=== PATIENT | female | born 1945 | race Caucasian/White ===

== ENCOUNTER 2018-11-11 00:25 | Outpatient (CLI) | payer MEDICARE, OTHER, SELFPAY ==
--- NOTE | 2018-11-11 15:10 | DI.MAMMO_ITS ---
SYMPTOMS/DIAGNOSIS: SCREENING, Z12.31 MAMMOGRAMS: Mammograms were interpreted according to the usual protocol including computer analysis with CAD system, tomosynthesis and C view imaging. The breasts are heterogeneously dense. No dominant mass or clumped microcalcification is identified in either breast. Current examination is compared with previous examinations including October 2016 and there has been no gross interval change in appearance in comparison with the previous studies. CONCLUSION: No specific evidence of malignancy at this time. Routine screening examinations are suggested at yearly intervals in this age group according to the ACS/ACR guidelines. Category 1, breast density category C. MQSA ASSESSMENT OF FINDINGS: Negative. Category 1. Patient will receive a letter notifying them of these results. Bi-RADS category C. The breasts are heterogeneously dense, which may obscure small masses.
--- NOTE | 2018-11-11 15:10 | DI.RAD_ITS ---
SYMPTOMS/DIAGNOSIS: OSTEOPOROSIS, ON FOSAMAX WEEKLY SINCE 08/2011, M81.0 DEXA SCAN: DEXA scan was performed according to the usual protocol. Findings for a lumbar spine scan are a T score of -0.8. Previous examination of June 2013 showed lumbar T score of -0.8. Left hip T score is -2.4 with left femoral neck T score of -2.9. Previous examination of June 2013 showed left hip T score of -2.3. Right forearm scanning shows a T score of -3.3. This is unchanged from June 2013 where the T score was -3.3. CONCLUSION: Findings consistent with osteoporosis according to the WHO criteria. The lateral vertebral scanogram shows no evidence of a vertebral compression fracture.
== END 2018-11-11 00:45 ==
PROVIDERS: PCP Family Medicine; Visit Provider Family Medicine
DX: M81.0 Age-related osteoporosis without current pathological fracture (principal); Z12.31 Encounter for screening mammogram for malignant neoplasm of breast; Z79.899 Other long term (current) drug therapy
CPT/HCPCS: 77063; 77067; 77080

== ENCOUNTER 2018-11-20 09:04 | Outpatient (CLI) | payer MEDICARE, OTHER, SELFPAY ==
[2018-11-20 11:00] LABS: Anion Gap 7.9 mmol/L (3-11); BUN 24 mg/dL (7-18); CO2 30.1 mmol/L (21.0-32.0); Calcium 8.9 mg/dL (8.5-10.1); Chloride 106 mmol/L (98-107); Glucose 85 mg/dL (70-100); Potassium 4.2 mmol/L (3.5-5.1); Sodium 144 mmol/L (136-145); TSH (W/Ref FT4) 0.76 uIU/mL (0.358-3.74); Vitamin B12 312 pg/mL (193-986)
[2018-11-22 09:47] LABS: Parathyroid Hormone,Intact 46 pg/ml (19-88)
[2018-11-22 13:01] LABS: Vitamin D 25 Total 28.5 ng/ml (30-100)
== END 2018-11-20 09:24 ==
PROVIDERS: PCP Family Medicine; Visit Provider Family Medicine
DX: R63.4 Abnormal weight loss (principal); M19.90 Unspecified osteoarthritis, unspecified site; M81.0 Age-related osteoporosis without current pathological fracture
CPT/HCPCS: 36415; 80048; 82306; 82607; 83970; 84443

== ENCOUNTER 2019-02-03 16:16 | Outpatient (REF) | payer MEDICARE, OTHER, SELFPAY ==
[2019-02-03 18:53] LABS: Vitamin D 25 Total 76.1 ng/ml (30-100)
[2019-02-03 18:58] LABS: Vitamin B12 615 pg/mL (193-986)
== END 2019-02-03 16:36 ==
LOC: NCHCN 16:16
PROVIDERS: PCP Family Medicine; Visit Provider Family Medicine
DX: E55.9 Vitamin D deficiency, unspecified (principal); E53.8 Deficiency of other specified B group vitamins
CPT/HCPCS: 82306; 82607

== ENCOUNTER 2020-08-09 20:00 | Outpatient (REF) | payer OTHER, SELFPAY | END 2020-08-09 20:01 | disposition home or self-care (01) | LOC: LBN 20:00 | PROVIDERS: PCP Family Medicine; Visit Provider Obstetrics & Gynecology Gynecology | DX: N76.4 Abscess of vulva (principal) | CPT/HCPCS: 87077; 87070; 87186; 87205 ==

== ENCOUNTER 2020-12-25 01:40 | Outpatient (CLI) | payer OTHER, SELFPAY ==
--- NOTE | 2020-12-25 | DI.DEXA_ITS ---
Exam(s) XR DEXA BONE DENSITY W/WO VALERIY EXAM: XR DEXA BONE DENSITY W/WO VALERIY CLINICAL HISTORY: OSTEOPOROSIS, M81.0 TECHNIQUE: Routine DEXA evaluation of the lumbar spine, hip, or forearm. COMPARISON: Prior DEXA scan October 2018 FINDINGS: Performed on a [email or web address] unit. Lateral image: No compression fracture evident. Lumbar Spine total T-score: -0.9 . prior October 2018 reading was -0.8 Hip total T-score:-2.6 . prior October 2018 reading was -2 4 Independent reading at the femoral neck today is a T-score of -3.0 Forearm total T-score: -3.7 IMPRESSION: Bone mineral density measures in the osteoporosis range. Fracture risk is high. Note: Any spine fracture indicates 5x risk for subsequent spine fracture and 2x risk for subsequent h ip fracture. World Health Organization criteria for BMD interpretation classify patients: Normal...... T- Score at or above -1.0 Osteopenic... T- Score between -1.0 and -2.5 Osteoporosis... T-Score at or below -2.5
--- NOTE | 2020-12-25 | DI.MAMMO_ITS ---
Exam(s) MAMMO SCREENING EXAM: MAMMO SCREENING CLINICAL HISTORY: SCREENING, Z12.31. TECHNIQUE: Bilateral full field digital CC and MLO mammographic images were obtained with 3D tomosyn thesis and utilizing computer aided detection (CAD). COMPARISON: Prior mammograms dating back to 2012, the most recent being October 2018. FINDINGS: The fibroglandular tissue pattern is again noted be moderately dense, this decreasing the sensitivity of the mammogram for finding hidden underlying lesions. There are no CAD designations. There are no new obvious spiculated masses nor malignant appearing microcalcification groups. There is no significant architectural distortion nor skin thickening-retraction. IMPRESSION: Dense fibroglandular tissue. No obvious radiographic evidence malignancy nor significant change comp ared to prior studies listed above BI-RADS Category 1 - Negative Breast Density - Category C - Heterogeneously dense Breast density Category C or D implies that the patient has dense breast tissue. Dense breast tissue can make it harder to find cancer on a mammogram. Dense breast tissue is also associated with an incr eased risk of breast cancer. This information about the result of the mammogram report was provided to the patient to raise their awareness. Use this report when you speak with the patient about their risks for breast cancer, which includes their family history. At that time, you may recommend additional screening tests (Ultrasoun d or MRI) as these tests may add significant information. A negative radiographic report should not delay biopsy if a dominant or clinically suspicious mass is present. Up to ten percent of cancers are not identified on mammography. A negative report may reinforce clinical impression. Adenosis and dense breasts may obscure an underlying neoplasm. False positive reports average 6 to 10%. Patient will receive a letter notifying them of these results.
== END 2020-12-25 02:00 ==
PROVIDERS: PCP Family Medicine; Visit Provider Family Medicine
DX: Z12.31 Encounter for screening mammogram for malignant neoplasm of breast (principal); M81.0 Age-related osteoporosis without current pathological fracture
CPT/HCPCS: 77063; 77067; 77080

== ENCOUNTER 2021-01-21 13:23 | Outpatient (REF) | payer OTHER, SELFPAY ==
[2021-01-21 14:25] LABS: Vitamin D 25 Total 55.8 ng/mL (30-100)
== END 2021-01-21 13:24 | disposition home or self-care (01) ==
LOC: NCHCN 13:23
PROVIDERS: PCP Family Medicine; Visit Provider Family Medicine
DX: M81.0 Age-related osteoporosis without current pathological fracture (principal)
CPT/HCPCS: 82306

== ENCOUNTER 2021-01-23 15:39 | Outpatient (REF) | payer OTHER, SELFPAY ==
[2021-01-28 15:25] LABS: Creatinine, U 78 mg/dL; NTX 384 nmol/L; NTX-Telopedptide, U 56 nmol/mmol
== END 2021-01-23 15:40 | disposition home or self-care (01) ==
LOC: NCHCN 15:39
PROVIDERS: PCP Family Medicine; Visit Provider Family Medicine
DX: M81.0 Age-related osteoporosis without current pathological fracture (principal)
CPT/HCPCS: 82523

== ENCOUNTER 2021-02-28 02:59 | Outpatient (RCR) | payer OTHER, SELFPAY ==
[2021-02-28] MEDS: Normal Saline Flush 10 ML SYR IVP (09:04)
== END 2021-03-28 23:59 | disposition home or self-care (01) ==
LOC: INF 02:59
PROVIDERS: PCP Family Medicine; Visit Provider Nurse Practitioner Family
DX: M81.8 Other osteoporosis without current pathological fracture (principal)
CPT/HCPCS: 96365; J3489

== ENCOUNTER 2022-03-10 03:10 | Outpatient (RCR) | payer MEDICARE, SELFPAY ==
[2022-03-10] MEDS: ZOLEDRONIC ACID/MANNITOL/WATER 5 MG/100 ML BTL 300 MG IVPB (09:21)
[2022-03-10] MEDS: Normal Saline Flush 10 ML SYR IVP (09:21)
== END 2022-03-28 23:59 | disposition home or self-care (01) ==
LOC: INF 03:10
PROVIDERS: PCP Family Medicine; Visit Provider Nurse Practitioner Acute Care
DX: M81.0 Age-related osteoporosis without current pathological fracture (principal)
CPT/HCPCS: 96365; J3489

== ENCOUNTER → 2023-02-03 02:36 | Outpatient (CLI) | payer MEDICARE, SELFPAY ==
--- NOTE | 2023-02-03 | DI.DEXA_ITS ---
Exam(s) XR DEXA BONE DENSITY W/WO VALERIY EXAM: XR DEXA BONE DENSITY W/WO VALERIY CLINICAL HISTORY: OSTEOPOROSIS, M81.0 TECHNIQUE: COMPARISON: CR XR DEXA BONE DENSITY W/WO VALERIY from 12/25/2020 FINDINGS: Lateral Spine Image: Unremarkable. No compression deformities identified. Left hip: Total T-Score: -2.5. This compares to -2.6 on the prior examination. Total Z-Score: -0.6 T- and Z-scores: Findings are consistent with osteoporosis. Lumbar Spine: Total T-Score: -0.7. This compares to -0.9 on the prior examination. Total Z-Score: 1.8 T- and Z-scores: No evidence of osteoporosis. IMPRESSION: Osteoporosis in the left hip.
--- NOTE | 2023-02-03 | DI.MAMMO_ITS ---
Exam(s) MAMMO SCREENING EXAM: MAMMO SCREENING CLINICAL HISTORY: SCREENING, Z12.31 TECHNIQUE: Bilateral full field digital CC and MLO mammographic images were obtained with 3D tomosyn thesis and utilizing computer aided detection (CAD). COMPARISON: Available for comparison. FINDINGS: Masses/Architectural Distortion: None seen. Microcalcifications: No suspicious pleomorphic-type are seen. Skin Thickening/Nipple Retraction: None. IMPRESSION: 1. No significant interval change with no specific features of malignancy noted. 2. Unless there is more urgent need, screening mammography is recommended, as per [place] [employer] guidelines. BI-RADS Category 1 - Negative Breast Density - Category C - Heterogeneously dense Breast density category C or D implies that the patient has dense breast tissue. Dense breast tissue is very common and is not abnormal but dense breast tissue can make it harder to find cancer on a ma mmogram. Also, dense breast tissue may increase their breast cancer risk. This information about the result of the mammogram report was provided to the patient to raise their awareness. Use this report when you speak with the patient about their risks for breast cancer, which includes their family hist ory. At that time, you may recommend for more screening tests (Ultrasound or MRI) as they might be us eful based on their risk. A negative radiographic report should not delay biopsy if a dominant or clinically suspicious mass is present. Up to ten percent of cancers are not identified on mammography. A negative report may reinforce clinical impression. Adenosis and dense breasts may obscure an underlying neoplasm. False positive reports average 6 to 10%. Patient will receive a letter notifying them of these results.
== END ==
PROVIDERS: PCP Family Medicine; Visit Provider Family Medicine
DX: M81.0 Age-related osteoporosis without current pathological fracture (principal); Z12.2 Encounter for screening for malignant neoplasm of respiratory organs; Z12.31 Encounter for screening mammogram for malignant neoplasm of breast
CPT/HCPCS: 77063; 77067; 77080

== ENCOUNTER → 2023-02-23 10:12 | Outpatient (CLI) | payer MEDICARE, SELFPAY ==
--- NOTE | 2023-02-23 10:42 | DI.RAD_ITS ---
Exam(s) XR FOOT LT COMPLETE EXAM: XR FOOT LT COMPLETE CLINICAL HISTORY: Kathia M20.42. TECHNIQUE: 2D digital imaging was performed of the left foot. Three images were obtained. AP, obli que and lateral views were obtained. COMPARISON: No exams were available for comparison FINDINGS: BONES: No acute fracture is present. No bony destructive lesion is seen. There is an enthesophyte at the posterior calcaneus. JOINTS: No dislocation present. There are mild degenerative changes of the foot particularly the inte rphalangeal joints. SOFT TISSUE: Normal. IMPRESSION: Mild degenerative changes of the foot. DATA REPOSITORY: RADIATION DOSE DELIVERED:
--- NOTE | 2023-02-23 10:42 | DI.RAD_ITS ---
Exam(s) XR FOOT RT COMPLETE EXAM: XR FOOT RT COMPLETE CLINICAL HISTORY: Hammertoe right foot M20.41. TECHNIQUE: 2D digital imaging was performed of the right foot. Three images were obtained. AP, obl ique and lateral views were obtained. COMPARISON: No exams were available for comparison FINDINGS: BONES: No acute fracture is present. No bony destructive lesion is seen. There is a well corticated o sseous density at the dorsal aspect of the talonavicular joint. JOINTS: No dislocation present. Degenerative changes are seen at the 1st MTP joint characterized by j oint space narrowing and osteophytes. SOFT TISSUE: Normal. IMPRESSION: Degenerative changes of the 1st MTP joint. DATA REPOSITORY: RADIATION DOSE DELIVERED:
== END ==
PROVIDERS: PCP Family Medicine; Visit Provider Podiatrist
DX: M20.41 Other hammer toe(s) (acquired), right foot (principal); M20.42 Other hammer toe(s) (acquired), left foot; M19.072 Primary osteoarthritis, left ankle and foot; M19.071 Primary osteoarthritis, right ankle and foot
CPT/HCPCS: 73630

== ENCOUNTER 2023-03-17 03:12 | Outpatient (RCR) | payer MEDICARE, SELFPAY ==
[2023-03-17] MEDS: Normal Saline Flush 10 ML SYR IVP (10:04)
[2023-03-17] MEDS: ZOLEDRONIC ACID/MANNITOL/WATER 5 MG/100 ML BTL 300 MG IVPB (10:04)
== END 2023-03-28 23:59 | disposition home or self-care (01) ==
LOC: INF 03:12
PROVIDERS: PCP Family Medicine; Visit Provider Nurse Practitioner Acute Care
DX: M81.0 Age-related osteoporosis without current pathological fracture (principal)
CPT/HCPCS: 96365; J3489

== ENCOUNTER 2024-02-17 00:52 | Outpatient (CLI) | payer MEDICARE, SELFPAY ==
--- NOTE | 2024-02-17 | DI.MAMMO_ITS ---
Exam(s) MG MAMMO SCREENING EXAM: MG MAMMO SCREENING MG MAMMO SCREENING tissue. CLINICAL HISTORY: Z12.31 Screening TECHNIQUE: Mammograms were interpreted according to the usual protocol including computer analysis w [employer] CAD system, tomosynthesis and C-view imaging. COMPARISON: 2014 through 2022 FINDINGS: The breasts are composed of heterogeneously dense fibroglandular densities, Breast Density category C . No suspicious masses or suspicious microcalcifications are seen. No skin thickening or abnormal axillary lymph nodes are seen. There has been no significant change from prior exams. IMPRESSION: BI-RADS Category 1, Negative mammogram. Yearly screening mammography is recommended. Breast Density Category C, heterogeneously Dense. The mammogram demonstrates the patient's breast tissue is dense. Dense breast tissue is very common a nd is not abnormal but dense breast tissue can make it harder to find cancer on a mammogram. Also, de nse breast tissue may increase breast cancer risk. This information about the result of the mammogram report was provided to the patient to raise their awareness. Use this report when you speak with the patient about their risks for breast cancer, which includes their family history. At that time, you may recommend additional screening tests (Ultrasound or MRI) as they might be useful based on their r isk. A negative radiographic report should not delay biopsy if a dominant or clinically suspicious mass is present. Up to ten percent of cancers are not identified on mammography. A negative report may reinforce clinical impression. Adenosis and dense breasts may obscure an underlying neoplasm. False positive reports average 6 to 10%. Patient will receive a letter notifying them of these results. Two
== END 2024-02-17 01:12 ==
LOC: DI 00:52
PROVIDERS: PCP Family Medicine; Visit Provider Family Medicine
DX: Z12.31 Encounter for screening mammogram for malignant neoplasm of breast (principal)
CPT/HCPCS: 77063; 77067

== ENCOUNTER 2024-04-21 15:08 | Outpatient (REF) | payer MEDICARE, SELFPAY ==
[2024-04-21 17:42] LABS: Absolute Basophil Count 0.03 10^3/uL (0.0-0.2); Absolute Eosinophil Count 0.05 10^3/uL (0.0-0.7); Absolute Lymphocyte Count 1.28 10^3/uL (1.2-3.4); Absolute Monocyte Count 0.36 10^3/uL (0.1-0.8); Absolute Neutrophil Count 2.16 10^3/uL (1.2-6.7); Basophils % 0.8 %; Eosinophils % 1.3 %; HCT 40.7 % (36.0-46.0); HGB 13.4 g/dL (11.2-15.7); MCH 31.5 pg (27.0-33.0); MCHC 32.9 % (32.0-36.0); MCV 96 fL (80-95); MPV 9.8 fL (8.0-11.0); Monocytes % 9.3 %; Neutrophils % 55.6 %; Platelet Count 295 10^3/uL (130-400); RBC 4.25 10^6/uL (3.93-5.22); RDW 12.1 % (11.7-14.6); RDW-SD 42.7 fL; WBC 3.88 10^3/uL (4.4-10.8)
[2024-04-21 17:54] LABS: ALT 24 U/L (14-59); AST 20 U/L (15-37); Alkaline Phosphatase 57 U/L (46-116); Anion Gap 7.2 mmol/L (3-11); BUN 23 mg/dL (7-18); Bilirubin, Total 0.82 mg/dL (0.2-1.0); C-Reactive Protein < 0.50 mg/dL (<or=0.5); CO2 29.8 mmol/L (21.0-32.0); CREATININE 0.8 mg/dL (0.55-1.02); Calcium 9.5 mg/dL (8.5-10.1); Chloride 106 mmol/L (98-107); Estimated GFR 75.84 (mL/min/1.73m2); Glucose 91 mg/dL (74-106); Potassium 4.2 mmol/L (3.5-5.1); Sodium 143 mmol/L (136-145)
== END 2024-04-21 15:09 | disposition home or self-care (01) ==
LOC: LBN 15:08
PROVIDERS: PCP Family Medicine; Visit Provider Physician Assistant Medical
DX: R19.7 Diarrhea, unspecified (principal)
CPT/HCPCS: 80053; 85025; 86140

== ENCOUNTER 2024-04-22 22:49 | Outpatient (REF) | payer MEDICARE, SELFPAY ==
[2024-04-22 22:20] LABS: Campylobacter PCR Negative (Negative); Salmonella PCR Negative (Negative); Shiga Toxin PCR Negative (Negative); Shigella/Enteroinvasive Ecoli Negative (Negative)
--- OUTSIDE RECORDS SUMMARY | 2024-04-22 22:51 | XMS_ITS | Encounter Summary ---
[place] [address] Care Team Providers Care Skip Pit Worker Name Role Phone Sue Simmons MD Primary Care Provider [phone] Encounter Details Date Type Department Care Team (Latest Contact Info) Description 10/02/2022 Travel Social History Tobacco Use Types Packs/Day Years Used Date Smoking Tobacco: Never Smokeless Tobacco: Never Sex and Gender Information Value Date Recorded Sex Assigned at Not on file Gender Identity Not on file Sexual Orientation Not on file documented as of this encounter Plan of Treatment Upcoming Encounters Date Type Department Care Team (Late st Contact Info) Description 10/13/2024 10:15 AM EDT Office Visit D[facility]ology at [place] [address] [place] [phone] Renan Ba MD [address], [place] [address] documented as of this encounter Visit Diagnoses Not on filedocumented in this encounter Care Teams Skip Pit Worker Relationship Specialty Start Date End Date Sue Simmons MD [facility] [address] [place] [address] PCP - General Family Medicine 01/13/19 documented as of this encounter
--- OUTSIDE RECORDS SUMMARY | 2024-04-22 22:51 | XMS_ITS | Encounter Summary ---
Author Organization [facility] Address [address] [place] [address] Care Team Providers Care Headwaiter/Headwaitress Name Role Phone Unavailable Primary Care Provider Unavailabl e Encounter Details Date Type Department Care Team (Late st Contact Info) Description 05/07/2004 Results Only [facility] Medicine - [address] [phone] Tierra Taylor MD Social History Tobacco Use Types Packs/Day Years Used Date Smoking Tobacco: Never Assessed Sex and Gender Information Value Date Recorded Sex Assigned at Not on file Gender Identity Not on file Sexual Orientation Not on file documented as of this encounter Plan of Treatment Not on file documented as of this encounter Procedures Procedure Name Priority Date/Time Associated Diagnosis Comments CYTOPATHOLOGY Routine 05/07/2004 0:00 EST documented in this encounter Results * CYTOPATHOLOGY (05/07/2004 0:00 EST) Pathology Report: CYTOPATHOLOGY REPORT Reports generated via electronic interface contain original data; however they are lacking the format of the original report. Caution should be taken when reading/interpreti ng unformatted reports. Name: ? JESSIE TAY ? Accession #: ? [id number] : ? 1945 (Age: 58) ??F ?Collect Date: ? 05/07/2004 Location: ? [facility] ? Receive Date: ? 05/09/2004 Provider: ?TIERRA TAYLOR MD Copy to: ? Specimen/Source: ?ThinPrep Pap Test, Endocervix Last Menstrual Period: ? 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 Miscellaneous treatment: excision Other: ? HPVA - HPV testing requested if ASC-US on the current ThinPrep Pap test. ? SPECIMEN ADEQUACY ? Satisfactory for Evaluation - assessment of transformation zone component not applicable ( e.g. atrophy, vaginal sample, hysterectomy) - scant squamous epithelial component GENERAL CATEGORIZATION ? Negative for Intraepithelial Lesion or Malignancy ? Document reviewed and electronically signed by: ? STAN Salter(ASCP) ? Report Date: ??05/17/2004 09:27 End of Report JUJU ROBISON 05/07/2004 05/09/2004 Tierra Taylor MD PATHOLOGY ORDERABLES JUJU ROBISON [address] [place] [address] documented in this encounter Visit Diagnoses Not on filedocumented in this encounter
--- OUTSIDE RECORDS SUMMARY | 2024-04-22 22:51 | XMS_ITS | Continuity of Care Document ---
Author Organization 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 Officer Name Role Phone KANDICE FALCON Staking Press Operator Assessment Encounter Date Assessment Date Assessment LastModified by Organization Details LastModified Time 03/30/2024 03/30/2024 IFOB test negative; documented on order [email or web address] Not available 03/30/2024 09:59:30 Plan of Treatment Reminders Order Date Submit Date Provider Last Modified By Organization Details Last Modified Time Details Appointments Nurse Visit 20 2023 01:40P M [facility] Nursing Staff Not available Not available Not available Annual Wellness Exam 40 2024 09:00A M Sue Oneill Not available Not available Not available Lab None recorded . Referral None recorded . Procedures None recorded . Surgeries None recorded . Imaging None recorded . Medication Orders None recorded . Patient TargetsNo targets recorded. Patient InstructionsNo instructions recorded. Reason for Referral None Reported. Results Created Date Observation Date Name Description Value Unit Range Abnormal Flag Note LastModifiedBy Organization Detail LastModifiedTime 03/14/20 24 12/26/2020 bone densi ty No observ ation record ed. Not Available 03/14 03:49:02 03/14/20 24 02/03/2023 bone densi ty No observ ation record ed. Not Available 03/14 03:49:03 03/14/20 24 12/26/2020 MAMMO , scree shruthi No observ ation record ed. Not Available 03/14 03:49:04 03/14/20 24 02/03/2023 MAMMnathan Bender No observ ation record ed. Not Available 03/14 03:49:05 03/14/20 24 11/11/2018 MAMMnathan Bender No observ ation record ed. Not Available 03/14 03:49:06 03/14/20 24 11/11/2018 imagi ng/di agnos tic resul t No observ ation record ed. Not Available 03/14 03:49:22 03/14/20 24 02/23/2023 XR, foot No observ ation record ed. [email or web address] [facility] [address], [place], [address], 04/20/2024 14:58:28 03/14/20 24 02/23/2023 imagi ng/di agnos tic resul t No observ ation record ed. Not Available 03/14 03:49:25 Result Notes None recorded. 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 [address] , [facility] 4 17:25:59 Hearing loss 54782234 Active 2015 hearing aides MD [address], [facility] [address] , [facility] 4 11:13:29 Adult health examinat ion Active [address], [facility] [address] , [facility] 4 17:24:00 Screenin g mammogra phy Completed 201801/24/2024 Problem Code: Z12.31; Problem Code Type: ICD-10; MD [address], [place], [address] , [facility] 4 17:25:15 Actinic keratosi s 767476834 Active [address], [place], [address] , [facility] 4 17:23:42 Abnormal weight loss 801399766 Completed 201812/08/2018 Problem Code: R63.4; Problem Code Type: ICD-10; Not Available [facility] 3 05:11:48 Vitamin D deficien cy 55490488 Active [address], [place], [address] , [facility] 4 17:26:15 Vitamin B deficien cy 53714874 Active 2018 B12 312 [address], [facility] [address] , [facility] 4 17:28:35 Elevated blood-pr essure reading without diagnosi s of hyperten sabino 386016558 Completed 202001/24/2024 01/14/20 22 - Comments only - Sue Oneill MD - BP excellen t in the office today, and has been okay at home, no need for medicaio ns at this time. Continue to monitor, continue to avoid extra salt. Problem Code: R03.0; Problem Code Type: ICD-10; MD [address], [facility] [address] , [facility] 4 17:24:35 Pain of toe of right foot 55050503789 9101 Active [address], [place], [place], [address] [place] [address] , [facility] 4 17:25:04 Screenin g for malignan t neoplasm of colon Completed 202201/24/2024 Problem Code: Z12.11; Problem Code Type: ICD-10; MD [address], [place], [address] , [facility] 4 17:25:13 Carpal tunnel syndrome 73579649 Completed 200710/28/2016 Problem Code: G56.00; Problem Code Type: ICD-10; Not Available [facility] 3 05:11:49 Benign neoplasm of colon 81192818 Completed 201010/28/2016 Problem Code: D12.6; Problem Code Type: ICD-10; Not Available [facility] 3 05:11:49 Screenin g for disorder Completed 201503/25/2023 Problem Code: Z13.9; Problem Code Type: ICD-10; Not Available [facility] 3 05:11:50 Actinic keratosi s Completed 201511/01/2018 Problem Code: L57.0; Problem Code Type: ICD-10; MD [address], [place], [address] , [facility] 4 17:23:42 Basal cell carcinom a of face 918793421 Completed 200303/25/2023 Problem Code: 173.31; Problem Code Type: ICD-9; Not Available [facility] 3 05:11:50 Osteopor osis 06930741 Completed 201103/25/2023 Not Available [facility] 3 05:11:50 Pain in left lower limb 244416315 Completed 201510/28/2016 Problem Code: M79.605; Problem Code Type: ICD-10; Not Available [facility] 3 05:11:51 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 Medical Equipment None Reported. Allergies No known drug allergies Medications Name Sig Start Date Stop Date Status Note LastModified by Organization Details LastModified Time clindamycin HCl 300 mg capsule 1CAP four times daily 12/05 completed Not Available Not Available Not Available alendronate 70 mg tablet Take 1 tab by mouth once weekly 11/01 completed Not Available Not Available Not Available Bactroban 2 % topical ointment jarred twice daily 09/03 completed Not Available Not Available Not Available erythromyci n 5 mg/gram (0.5 %) eye ointment ointment EVERY 4 HOURS 11/09 completed Not Available Not Available Not Available cephalexin 500 mg tablet 1 TAB twice daily 09/22 completed Not Available Not Available Not Available Vitamin D2 1,250 mcg (50,000 unit) capsule Take one twice a week for 8 weeks 01/19 completed Not Available Not Available Not Available Bactroban Nasal 2 % ointment JARRED twice daily 01/20 completed Not Available Not Available Not Available vitamin B complex capsule Take 1 capsule every day by oral route. active Not Available Not Available No t Available Vitamin B-12 1,000 mcg tablet 1 tab daily 2019 active Not Available Not Available Not Avai lable Bactrim DS 800 mg-160 mg tablet Take 1 tablet by mouth twice a day 11/12 completed Not Available Not Available Not Available zoster vaccine live (PF) injection once 04/27 completed Not Available Not Available Not Available cholecalcif christiana (vitamin D3) 25 mcg (1,000 unit) tablet tablet by mouth once a day 2018 active Not Available Not Available Not Avai lable Guaifenesin AC 10 mg-100 mg/5 mL oral syrup 5ML every six hours 05/07 completed Not Available Not Available Not Available Vitals None Recorded Social History Question Answer Notes LastModified by Organizat ion Details LastModified Time Tobacco Smoking Status Never Smoker 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 01/25/2024 10:47:15 Would You Say That, In General, Your Health Is Excellent Information not available 01/25/2024 How Often Does Anyone, Including Family, Physically Hurt You? Never Information not available 01/25/2024 How Often Does Anyone, Including Family, Insult Or Talk Down To You? Never Information no t available 01/25/2024 How Often Does Anyone, Including Family, Threaten You With Harm? Never Information not available 01/25/2024 How Often Does Anyone, Including Family, Scream Or Curse At You? Never Information not available 01/25/2024 Within The Past 12 Months, You Worried That Your Food Would Run Out Before You Got Money To Buy More. Never True Information n ot available 01/25/2024 Within The Past 12 Months, The Food You Bought Just Didn't Last And You Didn't Have Money To Get More. Never True Information n ot available 01/25/2024 How Hard Is It For You To Pay For The Very Basics Like Food, Housing, Medical Care, And Heating? Would You Say It Is: Not Hard At All Information not available 01/25/2024 In The Past 12 Months, Has Lack Of Reliable Transportation Kept You From Medical Appointments, Meetings, Work Or From Getting Things Needed For Daily Living? No Information not available 01/25/2024 What Is Your Housing Situation Today? I Have Housing. Information not available 01/25/2024 How Often In The Past Year Have You Used Marijuana (including Smoking, Vaping, Dabbing, Or Edibles)? Never Information not available 01/25/2024 How Often In The Past Year Have You Used Prescription Medications That Were Not Prescribed To You? Never Information n ot available 01/25/2024 How Often In The Past Year Have You Taken Your Own Prescription Medication More Than The Way It Was Prescribed Or For Different Reasons Than Its Intended Purpose? Never Information no t available 01/25/2024 How Often In The Past Year Have You Used Other Drugs (for Example, Heroin, Cocaine, Meth, Salvia, Inhalants)? Never Information not available 01/25/2024 Have You Ever Used IV Drugs? No Information not available 01/25/2024 Date Of Most Recent SBINS 01/25/2024 Information not available 01/25/2024 What Was The Date Of Your Most Recent Tobacco Screening? 04/21/2024 [email or web address] Information not available 04/21/2024 Has Tobacco Cessation Counseling Been Provided? No Information not available 01/25/2024 Do You Or Have You Ever Used Any Other Forms Of Tobacco Or Nicotine? No Information not available 01/25/2024 Sex: Female Functional Status None recorded. Mental Status None recorded. Family History Relationship Description Onset Age of this Age Resolved Age Notes LastModified by Organization Details LastModified Time Mother Family history of Arthritis [email or web address] Not available 2022 03:52:41 Father Family history of cancer of colon [email or web address] Not available 2022 03:52:42 Notes:*Problem: Mother decea seded age 86. She has arthritis,skin ca Father in his 70s from COPD, he was a smoker.H/o colon cancer in 70's She had a brother in his 50s, complications of substance use. She has a younger sister who is healthy. Medical History No medical history recorded. Gynecological HistoryNo gynecological history recorded. Obstetrics History GPAL:G 0 P 0 0 0 0 Immunizations Vaccine Type Date Status Provider Name and Address Organization Details Recorded Time Pneumococcal conjugate PCV20, polysaccharide [id number] conjugate, adjuvant, PF 01/25/2024 completed SUE ONEILL MD [address], [place], [address], [facility] 01/25/2024 11:16:28 Td (adult), 2 Lf tetanus toxoid, preservative free, adsorbed 01/13/2022 completed Not Available [facility] 05/08/2023 06:14:51 Tdap 03/30/2012 completed Not Available [facility] 06:14:51 zoster live 04/19/2012 completed Not Available [facility] 05/08/2023 06:14:52 Influenza, split virus, quadrivalent, PF 04/25/2015 completed Not Available [facility] 05/08/2023 06:14:52 Pneumococcal Conjugate, unspecified formulation 09/03/2014 completed Not Available [facility] 05/08/2023 06:14:52 COVID-19, mRNA, LNP-S, PF, 100 mcg/0.5mL dose or 50 mcg/0.25mL dose 08/17/2020 completed Not Available [facility] 05/08/2023 06:14:52 COVID-19, mRNA, LNP-S, PF, 100 mcg/0.5mL dose or 50 mcg/0.25mL dose 09/14/2020 completed Not Available [facility] 05/08/2023 06:14:52 COVID-19, mRNA, LNP-S, PF, 100 mcg/0.5mL dose or 50 mcg/0.25mL dose 04/22/2021 completed Not Available [facility] 05/08/2023 06:14:52 SARS-COV-2 (COVID-19) vaccine, UNSPECIFIED 02/02/2022 completed Not Available [facility] 05/08/2023 06:14:52 SARS-COV-2 (COVID-19) vaccine, UNSPECIFIED 05/20/2022 completed Not Available [facility] 05/08/2023 06:14:52 COVID-19, mRNA, LNP-S, bivalent, PF, 30 mcg/0.3 mL dose 11/19/2022 completed Not Available [facility] 05/08/20 06:14:52 pneumococcal polysaccharide PPV23 03/30/2012 completed Not Available [facility] 2022 06:14:52 influenza, unspecified formulation 04/22/2017 completed Not Available [facility] 05/08/2023 06:14:53 influenza, unspecified formulation 04/23/2016 completed Not Available [facility] 05/08/2023 06:14:53 influenza, unspecified formulation 05/11/2020 completed Not Available [facility] 05/08/2023 06:14:53 influenza, unspecified formulation 05/23/2019 completed Not Available [facility] 05/08/2023 06:14:53 zoster recombinant 06/28/2020 completed ML HARDWICK, [facility]. 01/25/2024 08:59:58 zoster recombinant 10/27/2020 completed ML HARDWICK, [facility]. 01/25/2024 09:00:11 Past Encounters Encounter ID Performer Location Encounter Start Date Encounter Closed Date Diagnosis/Indication Diagnosis SNOMED-CT Code Diagnosis ICD10 Code [id number] KRYSTEN VILLATORO RN [address] [place] [address] 03/30/2024 09:17:41 03/30/2024 10:06:36 Health Concerns Section Related Observation LastModified by Organization Detai ls LastModified Time None Recorded Concern Status LastModified by Organization Details LastModified Time None Recorded Payers Encounter Date Sequence Insurance Name Policy Number Policy Escudero Covered Member ID Escudero Member ID Guarantor Name 03/30/2024 1 [place]: [employer] Jessie Duran [id number] Jessie Duran 03/30/2024 2 [facility] (MEDICARE REPLACEMENT PPO) [id number] Jessie Duran [id number] Jessie Duran OBGyn Episode No OBEpisode recorded.
--- OUTSIDE RECORDS SUMMARY | 2024-04-22 22:51 | XMS_ITS | Continuity of Care Document ---
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 Plan of Treatment Reminders Order Date Submit Date Provider Last Modified By Organization Details Last Modified Time Details Appointments Nurse Visit 20 2023 01:40P M [facility] Nursing Staff Not available Not available Not available Annual Wellness Exam 40 2024 09:00A M Sue Otooleus Not available Not available Not available Lab fecal occult blood, immunoas say, stool 2023 024 [email or web address] [facility], [address], [place], [address], 03/30/2024 10:03:56 Referral None recorded . Procedures None recorded . Surgeries None recorded . Imaging MAMMO, screenin g, bilatera l 2023 024 [facility] (Radiology), [address] [place] [address] , [place], [address], 02/17/2024 14:09:03 Medication Orders None recorded . Patient TargetsNo targets recorded. Patient InstructionsNo instructions recorded. Reason for Referral None Reported. Results Created Date Observation Date Name Description Value Unit Range Abnormal Flag Note LastModifiedBy Organization Detail LastModifiedTime 03/30/20 24 03/30/2024 fecal occul t blood , immun oassa y, stool ifob negati ve Not Available [facility] [address] [place], [address], 03/30/2024 09:54:01 02/17/2002/17/2024 MAMMO , meka davidat gin álvarez Name: Annita Duran Unit #: [id number] Loc: DI Orderi ng Provid er: Sue Oneill M.D. Accoun t #: [id number] Status : REG CLI Primar y Care Provid er: Sue Oneill M.D. Date of Exam: Sex: F Admiss ion Date: : 1945 Age: 78 Exam(s ) MG MAMMO SCREEN ING EXAM: MG MAMMO SCREEN ING MG MAMMO SCREEN ING tissue . CLINIC AL HISTOR Y: Z12.31 Screen ing TECHNI QUE: Mammog leola were interp reted accord ing to the usual protoc ol includ ing comput er analys is with CAD system , tomosy nthesi s and C-view imagin g. COMPAR ZINA: 2014 throug h 2022 FINDIN GS: The breast s are compos ed of hetero geneou sly dense fibrog landul ar densit ies, Breast Densit y catego ry C. No suspic ious masses or suspic ious microc alcifi cation s are seen. No skin thicke shruthi or abnorm al axilla ry lymph nodes are seen. There has been no signif icant change from prior exams. IMPRES GAGE: BI-RAD S Catego ry 1, Negati ve mammog trinh. Yearly screen ing mammog sindy is recomm ended. Breast Densit y Catego ry C, hetero geneou sly Dense. The mammog trinh demons trates the patien t's breast tissue is dense. Dense breast tissue is very common and is not abnorm al but dense breast tissue can make it harder to find cancer on a mammog trinh. Also, dense breast tissue may increa se breast cancer risk. This inform ation about the result of the mammog trinh report was provid ed to the patineda t to raise their awaren ess. Use this report when you speak with the patien t about their risks for breast cancer , which includ es their family histor y. At that time, you may recomm end additi onal screen ing tests (Ultra sound or MRI) as they might be useful based on their risk. A negati ve radiog raphic report should not delay biopsy if a domina nt or clinic ally suspic ious mass is presen t. Up to ten percen t of cancer s are not identi fied on mammog sindy. A negati ve report may reinfo rce clinic al impres gage. Adenos is and dense breast s may obscur e an underl kerry neopla sm. False positi ve report s averag e 6 to 10%. Patien t will receiv e a letter notify ing them of these result s. Two Ordere d By: Sue Oneill M.D. CC: ------ ------ ------ ------ ------ ------ ------ ------ ------ ------ ------ ------ - Dictat ed By: Ben Mathur [id number] Transc ribed By: Chris Rodas 1345 This is privil eged, confid ential inform ation intend ed only for the provid er named. Any use or distri bution by any person other than this provid er is strict ly prohib ited. If you receiv e this report in error, please notify us immedi helenly at [phone] and return the origin al report to us at the addres s above. Thank- you. [email or web address] [facility] (Radiology) [address] [place], [address], 02/17/2024 14:09:04 03/14/20 24 12/26/2020 bone densi ty No observ ation record ed. Not Available 03/14 03:49:02 03/14/20 24 02/03/2023 bone densi ty No observ ation record ed. Not Available 03/14 03:49:03 03/14/20 24 12/26/2020 MAMMO nathan No observ ation record ed. Not Available 03/14 03:49:04 03/14/20 24 02/03/2023 MAMMO nathan No observ ation record ed. Not Available 03/14 03:49:05 03/14/20 24 11/11/2018 MAMMO nathan No observ ation record ed. Not Available 03/14 03:49:06 03/14/20 24 11/11/2018 imagi ng/di agnos tic resul t No observ ation record ed. Not Available 03/14 03:49:22 03/14/20 24 02/23/2023 XR, foot No observ ation record ed. [email or web address] [facility] [address], [place], [address], 04/20/2024 14:58:28 03/14/20 24 02/23/2023 imagi ng/di agnos tic resul t No observ ation record ed. Not Available 03/14 03:49:25 Result Notes None recorded. Problems Name Problem SNOMED Code Status Onset Date Resolution Date Notes Provider Name and Address Organization Details Recorded Time Osteoart hritis 367397014 Active [address], [place], [address] , [facility]. 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 17:40:14 History of malignan t neoplasm of skin 323971090 Active 2003 Dr Falcon annually . 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 75986591461 9107 Active [address], [address] 4 17:25:59 Hearing loss 05724131 Active 2015 hearing aides MD [address], [place] [address] , [facility] 4 11:13:29 Adult health examinat ion Active [address], [facility] [address] [place] [address] 4 17:24:00 Screenin g mammogra phy Completed 201801/24/2024 Problem Code: Z12.31; Problem Code Type: ICD-10; MD [address], [facility] [address] , [facility] 4 17:25:15 Actinic keratosi s 341701274 Active [address], [facility] [address] [place] [address] 4 17:23:42 Abnormal weight loss 744897556 Completed 201812/08/2018 Problem Code: R63.4; Problem Code Type: ICD-10; Not Available [facility] 3 05:11:48 Vitamin D deficien cy 53700973 Active [address], [place], [address] , [facility] 4 17:26:15 Vitamin B deficien cy 67598495 Active 2018 B12 312 [address], [place], [address] , [facility] 4 17:28:35 Elevated blood-pr essure reading without diagnosi s of hyperten gage 547413052 Completed 202001/24/2024 01/14/20 22 - Comments only - Sue Oneill MD - BP excellen t in the office today, and has been okay at home, no need for medicaio ns at this time. Continue to monitor, continue to avoid extra salt. Problem Code: R03.0; Problem Code Type: ICD-10; MD [address], [place], [address] , [facility] 4 17:24:35 Pain of toe of right foot 24812110271 9101 Active [address], [place], [address] , [facility] 4 17:25:04 Screenin g for malignan t neoplasm of colon Completed 202201/24/2024 Problem Code: Z12.11; Problem Code Type: ICD-10; MD [address], [place], [address] , [facility] 4 17:25:13 Carpal tunnel syndrome 14241074 Completed 200710/28/2016 Problem Code: G56.00; Problem Code Type: ICD-10; Not Available [facility] 3 05:11:49 Benign neoplasm of colon 61817381 Completed 201010/28/2016 Problem Code: D12.6; Problem Code Type: ICD-10; Not Available [facility] 3 05:11:49 Screenin g for disorder Completed 201503/25/2023 Problem Code: Z13.9; Problem Code Type: ICD-10; Not Available [facility] 3 05:11:50 Actinic keratosi s Completed 201511/01/2018 Problem Code: L57.0; Problem Code Type: ICD-10; MD [address], [place], [address] , [facility] 17:23:42 Basal cell carcinom a of face 463102937 Completed 200303/25/2023 Problem Code: 173.31; Problem Code Type: ICD-9; Not Available [facility] 3 05:11:50 Osteopor osis 68873669 Completed 201103/25/2023 Not Available [facility] 3 05:11:50 Pain in left lower limb 549388235 Completed 201510/28/2016 Problem Code: M79.605; Problem Code Type: ICD-10; Not Available [facility] 3 05:11:51 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 Medical [...] Not Available Not Available Not Available Vitals Date Recorded Body height Body mass index (BMI) Body weight Body temperature Respiratory rate Heart rate Systolic blood pressure Diastolic blood pressure Provider Name and Address Organization Details Last Updated DateTime 4 168.91 cm 17.8 kg/m2 35933.3 5 g 97.5 [degF] 16 /min 62 /min 118 mm[Hg] 78 mm[Hg] EMILY CRUZ LPN [facility] 10:36:34 Social History Question Answer Notes LastModified by Organizat ion Details LastModified Time Tobacco Smoking Status Never Smoker EMILY CRUZ LPN [facility], [facility] 01/25/2024 10:47:15 Would You Say That, In [...] Details Recorded Time Pneumococcal conjugate PCV20, polysaccharide ODB281 conjugate, adjuvant, PF 01/25/[address], [place], [address], [facility]. 01/25/2024 11:16:28 Td (adult), 2 Lf tetanus toxoid, preservative free, adsorbed 01/13/2022 completed Not Available [facility] 05/08/2023 06:14:51 Tdap 03/30/2012 completed Not Available [facility] 06:14:51 zoster live 04/19/2012 completed Not Available [facility] 05/08/2023 06:14:52 Influenza, split virus, quadrivalent, PF 04/25/2015 completed Not Available [facility] 05/08/2023 06:14:52 Pneumococcal Conjugate, unspecified formulation 09/03/2014 completed Not Available [facility] 05/08/2023 06:14:52 COVID-19, mRNA, LNP-S, PF, 100 mcg/0.5mL dose or 50 mcg/0.25mL dose 08/17/2020 completed Not Available [facility] 05/08/2023 06:14:52 COVID-19, mRNA, LNP-S, PF, 100 mcg/0.5mL dose or 50 mcg/0.25mL dose 09/14/2020 completed Not Available [facility] 05/08/2023 06:14:52 COVID-19, mRNA, LNP-S, PF, 100 mcg/0.5mL dose or 50 mcg/0.25mL dose 04/22/2021 completed Not Available [facility] 05/08/2023 06:14:52 SARS-COV-2 (COVID-19) vaccine, UNSPECIFIED 02/02/2022 completed Not Available [facility] 05/08/2023 06:14:52 SARS-COV-2 (COVID-19) vaccine, UNSPECIFIED 05/20/2022 completed Not Available [facility] 05/08/2023 06:14:52 COVID-19, mRNA, LNP-S, bivalent, PF, 30 mcg/0.3 mL dose 11/19/2022 completed Not Available [facility] 05/08/20 06:14:52 pneumococcal polysaccharide PPV23 03/30/2012 completed Not Available [facility] 2022 06:14:52 influenza, unspecified formulation 04/22/2017 completed Not Available [facility] 05/08/2023 06:14:53 influenza, unspecified formulation 04/23/2016 completed Not Available [facility] 05/08/2023 06:14:53 influenza, unspecified formulation 05/11/2020 completed Not Available [facility] 05/08/2023 06:14:53 influenza, unspecified formulation 05/23/2019 completed Not Available [facility] 05/08/2023 06:14:53 zoster recombinant 06/28/2020 completed ML HARDWICK, MD - [facility] 01/25/2024 08:59:58 zoster recombinant 10/27/2020 completed ML HARDWICK, MD - [facility] 01/25/2024 09:00:11 Past Encounters Encounter ID Performer Location Encounter Start Date Encounter Closed Date Diagnosis/Indication Diagnosis SNOMED-CT Code Diagnosis ICD10 Code [id number] SUE ONEILL MD [facility] [address] [place] [address] 01/25/2024 10:23:54 01/25/2024 11:06:21 Active or passive immunization 931792880 Z23 Screening mammography 24 277617 Z12.31 Adult heal th examination 220033968 Z00.00 Screening for malignant neoplasm of colon 026150290 Z12.11 Senile osteoporosis 1804 0001 M81.0 Health Concerns Section Related Observation LastModified by Organization Detai ls LastModified Time None Recorded Concern Status LastModified by Organization Details LastModified Time None Recorded Payers Encounter Date Sequence Insurance Name Policy Number Policy Escudero Covered Member ID Escudero Member ID Guarantor Name 01/25/2024 1 [place] [employer] Jessie Duran [id number] Jessie Duran 01/25/2024 2 [facility] ANYWHERE - MEDICARE ADVANTAGE (MEDICARE REPLACEMENT PPO) [id number] Jessie Duran [id number] Jessie Duran Notes Date Note Type Note Provider Name and Address Organization Details Recorded Time 01/25/2024 text/html HPI Notes: Here for Annual Exam. Interval history form was reviewed, including comprehensive ROS form. ROS negative throughout with the exception as noted below: hx of skin cancer- still sees Dr. Falcon once a year, last visit in August. osteoporosis- 7 years of alendronate, 3 doses of zometa. B12 deficiency- takes daily supplement. SH, still riding regularly. Lots of chores in the gardens. MD [address] [place], [address], [facility]. 01/25/2024 11:16:51 OBGyn Episode No OBEpisode recorded.
--- OUTSIDE RECORDS SUMMARY | 2024-04-22 22:51 | XMS_ITS | Clinical Summary ---
Author Organization [facility] Address [address] [place] [address] Care Team Providers Care Tire Rebuilder Name Role Phone Unknown, Provider Primary Care Provider [phone] Encounters Date Type Department Care Team Description 04/22/2024 Lab Requisition [facility] Pathology & Laboratory Medicine - [facility] [address] [place] [address] Outr Resulting Lab, Provider from Last 3 Months Social History Tobacco Use Types Packs/Day Years Used Date Smoking Tobacco: Never Assessed Sex and Gender Information Value Date Recorded Sex Assigned at Not on file Gender Identity Not on file Sexual Orientation Not on file Plan of Treatment Health Maintenance Due Date Last Done Comments Hepatitis C Screen 1945 RSV Immunization ( o r 60+ Years) (1 - 1-dose 60+ series) 2006 Fall Risk Screening 09/13/2011 COVID-19 Vaccine ( season) 2023 Procedures Procedure Name Priority Date/Time Associated Diagnosis Comments FECAL BACTERIAL PATHOGENS BY PCR Routine 04/22/2024 9:00 EDT from Last 3 Months Results * FECAL BACTERIAL PATHOGENS BY PCR (04/22/2024 9:00 EDT) Salmonella PCR Negative Negative 04/22/2024 22:[address] [facility] Shigella/Enteroin vasive E. coli Negative Negative 04/22/2024 22:[address] [facility] HN LAB CAMPYLOBACTER PCR Negative Negative 04/22/2024 22:[address] [facility] Shiga Toxin PCR Negative Negative 22:[address] [facility] Feces SPECIMEN FROM RECTUM / Unknown 04/22/2024 9:00 EDT 04/22/2024 16:19 EDT Provider Outr Resulting Lab MICROBIOLOGY - GENERAL ORDERABLES [facility] [address] [place] [address] from Last 3 Months Care Teams Tire Rebuilder Relationship Specialty Start Date End Date Unknown, Provider, PCP - General 01/15/11
--- OUTSIDE RECORDS SUMMARY | 2024-04-22 22:51 | XMS_ITS | Encounter Summary ---
[place] [address] Care Team Providers Care Manager Field Name Role Phone Sue Simmons MD Primary Care Provider [phone] Encounter Details Date Type Department Care Team (Late st Contact Info) Description 01/16/2020 10:15 AM EDT Office Visit Dermatology at [address] [place] [id number] Renan Ba MD [address], [place] [address] History of basal cell carcinoma Social History Tobacco Use Types Packs/Day Years Used Date Smoking Tobacco: Never Smokeless Tobacco: Never Sex and Gender Information Value Date Recorded Sex Assigned at Not on file Gender Identity Not on file Sexual Orientation Not on file documented as of this encounter Progress Notes * Renan Ba MD - 01/16/2020 10:15 AM EDT Problem: 1. Skin checkup 2. 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 History of high school/schooling in [place] 4. 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 She has been doing well. She has not noted any new lesions of concern. She wonders whether we can space her visits out a little bit more. Physical examination reveals a pleasant 74 woman who has a benign examination of the head and the neck the chest the back the hands the arms forearms thighs and the calves. She is blue-eyed freckled.She has very fair skin. There is no evidence of any malignant lesions. There is no evidence of recurrence at either of the above to noted prior treatment sites. Assessment and plan: History of nonmelanoma cutaneous malignancies. 1. No evidence of recurrence at prior treatment sites 2. Recommend that I see her now on an as needed basis for new lesion/concerns. Cc: Sue Simmons MD documented in this encounter Plan of Treatment Upcoming Encounters Date Type Department Care Team (Late st Contact Info) Description 10/13/2024 10:15 AM EDT Office Visit Dermatology at [place] [address] [facility] [place] [address] Renan Ba MD [address], [place] [address] documented as of this encounter Visit Diagnoses Diagnosis History of basal cell carcinoma Personal history of other malignant neoplasm of skin documented in this encounter Care Teams Manager Field Relationship Specialty Start Date End Date Sue Simmons MD [address] [place] [address] [address] [place] [address] PCP - General Family Medicine 01/13/19 documented as of this encounter
--- OUTSIDE RECORDS SUMMARY | 2024-04-22 22:51 | XMS_ITS | Continuity of Care Document ---
Author Organization [place] - [facility] [employer] [facility] [facility], [facility] Address [address] [place] [address] Care Team Providers Care Upholstered Goods Crafter Name Role Phone KANDICE FALCON Linter Saw Sharpener Assessment No assessment recorded. Plan of Treatment Reminders Order Date Submit Date Provider Last Modified By Organization Details Last Modified Time Details Appointments Nurse Visit 20 2023 01:40P M [facility] Nursing Staff Not available Not available Not available Annual Wellness Exam 40 2024 09:00A M Sue Oneill Not available Not available Not available Lab O&P (ova & parasite s), stool 2023 024 [facility] ([facility]), [address] [place] [address] [place], [address], 04/21/2024 12:30:53 culture, stool 2023 024 [facility] ([facility]), [address] [place] [address] [place], [address], 04/21/2024 14:00:37 C diff toxin DNA, stool 2023 024 [facility] ([facility]), [address] [place] [address] [place], [address], 04/22/2024 12:06:29 giardia + cryptosp oridium Ag, stool 2023 024 [facility] (Outpatient Lab), [address] [facility], [place], [address], 04/21/2024 13:50:42 CBC w/ auto diff 2023 [facility] ([facility]), [address] [place] [address] , [place], [address], 04/21/2024 17:56:16 CMP, serum or plasma 2023 [facility] ([facility]), [address] [place] [address] , [place], [address], 04/21/2024 17:56:18 C-reacti ve protein, quantita tive, serum or plasma 2023 [facility] ([facility]), [address] [place] [address] , [place], [address], 04/21/2024 18:00:55 Referral None recorded . Procedures None recorded . Surgeries None recorded . Imaging None recorded . Medication Orders None recorded . Patient TargetsNo targets recorded. Patient Instructions Encounter Date Encounter Id Patient Instructions Last Modified By Organization Details Last Modified Time 04/21/2024 [id number] 1. Blood work obtained today will likely have results back before we close. When they return I will call you to review findings. 2. You have been given materials and instructions on how to obtain stool studies. Please remember that the study for crypto and Giardia needs to go to [facility] lab. All of the other stool studies can go to [facility]. 3. Stool studies will come back in phases, once they become available I will communicate them to you. 4. Currently I do not see any findings to suggest need for imaging. If however you develop worsening pain, fevers, inability to eat or drink you should go to the emergency department. Given that this seems to be improving I think that would less likely be the case but please monitor symptoms closely. [email or web address] Not available 04/21/2024 12:29:11 Reason for Referral None Reported. 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 27285868514 9107 Active [address], [facility] [address] , [facility] 4 17:25:59 Hearing loss 82847642 Active 2015 hearing aides MD [address]ón[address], [facility] [address] , [facility] 4 11:13:29 Adult health examinat ion Active [address], [facility] [address] , [facility] 4 17:24:00 Screenin g mammogra phy Completed 201801/24/2024 Problem Code: Z12.31; Problem Code Type: ICD-10; MD Món[address], [facility] [address] , [facility] 4 17:25:15 Actinic keratosi s 518915148 Active [address], [facility] [address] , [facility] 4 17:23:42 Abnormal weight loss 971539718 Completed 201812/08/2018 Problem Code: R63.4; Problem Code Type: ICD-10; Not Available [facility] 3 05:11:48 Vitamin D deficien cy 83966769 Active [address], [facility] [address] , [facility] 4 17:26:15 Vitamin B deficien cy 55481973 Active 2018 B12 312 [address], [facility] [address] , [facility] 4 17:28:35 Elevated blood-pr essure reading without diagnosi s of hyperten sabino 604142653 Completed 202001/24/2024 01/14/20 22 - Comments only - Sue Oneill MD - BP excellen t in the office today, and has been okay at home, no need for medicaio ns at this time. Continue to monitor, continue to avoid extra salt. Problem Code: R03.0; Problem Code Type: ICD-10; MD [address]ón[address], [facility] [address] , [facility] 4 17:24:35 Pain of toe of right foot 82718204924 9101 Active [address], [place] [address] , [facility] 4 17:25:04 Screenin g for malignan t neoplasm of colon Completed 202201/24/2024 Problem Code: Z12.11; Problem Code Type: ICD-10; MD Món[address], [facility] [address] , [facility] 4 17:25:13 Carpal tunnel syndrome 05701823 Completed 200710/28/2016 Problem Code: G56.00; Problem Code Type: ICD-10; Not Available [facility] 3 05:11:49 Benign neoplasm of colon 55920294 Completed 201010/28/2016 Problem Code: D12.6; Problem Code Type: ICD-10; Not Available [facility] 3 05:11:49 Screenin g for disorder Completed 201503/25/2023 Problem Code: Z13.9; Problem Code Type: ICD-10; Not Available [facility] 3 05:11:50 Actinic keratosi s 410168414 Completed 201511/01/2018 Problem Code: L57.0; Problem Code Type: ICD-10; MD Món[address], [facility] [address] , [facility] 4 17:23:42 Basal cell carcinom a of face 851480421 Completed 200303/25/2023 Problem Code: 173.31; Problem Code Type: ICD-9; Not Available [facility] 3 05:11:50 Osteopor osis 99176163 Completed 201103/25/2023 Not Available [facility] 3 05:11:50 Pain in left lower limb 004342003 Completed 201510/28/2016 Problem Code: M79.605; Problem Code Type: ICD-10; Not Available [facility] 3 05:11:51 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 Medical Equipment [...] mass index (BMI) Body weight Body temperature Oxygen saturation Oxygen saturation in Arterial blood by Pulse oximetry Heart rate Respiratory rate Systolic blood pressure Diastolic blood pressure Provider Name and Address Organization Details Last Updated DateTime 4 168.91 cm 17.8 kg/m2 71537.3 5 g 98.2 [degF] 97 % 97 % 60 /min 16 /min 149 mm[Hg] 78 mm[Hg] Palmira Ybarra [facility] 4 11:23:35 Social History Question Answer Notes LastModified by Organizat ion Details LastModified Time Tobacco Smoking Status Never Smoker ML ROBERTS, [facility] 01/25/2024 10:47:15 Would You Say That, [...] Details Recorded Time Pneumococcal conjugate PCV20, polysaccharide TBZ612 conjugate, adjuvant, PF 01/25/2024 completed SUE ONEILL MD [address], [place], [address], [facility] 01/25/2024 11:16:28 Td (adult), 2 Lf tetanus toxoid, preservative free, adsorbed 01/13/2022 completed Not Available [facility] 05/08/2023 06:14:51 Tdap 03/30/2012 completed Not Available [facility] 06:14:51 zoster live 04/19/2012 completed Not Available [facility] 05/08/2023 06:14:52 Influenza, split virus, quadrivalent, PF 04/25/2015 completed Not Available [facility] 05/08/2023 06:14:52 Pneumococcal Conjugate, unspecified formulation 09/03/2014 completed Not Available [facility] 05/08/2023 06:14:52 COVID-19, mRNA, LNP-S, PF, 100 mcg/0.5mL dose or 50 mcg/0.25mL dose 08/17/2020 completed Not Available [facility] 05/08/2023 06:14:52 COVID-19, mRNA, LNP-S, PF, 100 mcg/0.5mL dose or 50 mcg/0.25mL dose 09/14/2020 completed Not Available [facility] 05/08/2023 06:14:52 COVID-19, mRNA, LNP-S, PF, 100 mcg/0.5mL dose or 50 mcg/0.25mL dose 04/22/2021 completed Not Available [facility] 05/08/2023 06:14:52 SARS-COV-2 (COVID-19) vaccine, UNSPECIFIED 02/02/2022 completed Not Available [facility] 05/08/2023 06:14:52 SARS-COV-2 (COVID-19) vaccine, UNSPECIFIED 05/20/2022 completed Not Available [facility] 05/08/2023 06:14:52 COVID-19, mRNA, LNP-S, bivalent, PF, 30 mcg/0.3 mL dose 11/19/2022 completed Not Available [facility] 05/08/20 06:14:52 pneumococcal polysaccharide PPV23 03/30/2012 completed Not Available [facility] 2022 06:14:52 influenza, unspecified formulation 04/22/2017 completed Not Available [facility] 05/08/2023 06:14:53 influenza, unspecified formulation 04/23/2016 completed Not Available [facility] 05/08/2023 06:14:53 influenza, unspecified formulation 05/11/2020 completed Not Available [facility] 05/08/2023 06:14:53 influenza, unspecified formulation 05/23/2019 completed Not Available [facility] 05/08/2023 06:14:53 zoster recombinant 06/28/2020 completed ML [place] - [facility]. 01/25/2024 08:59:58 zoster recombinant 10/27/2020 completed ML [place] - [facility] 01/25/2024 09:00:11 Past Encounters Encounter ID Performer Location Encounter Start Date Encounter Closed Date Diagnosis/Indication Diagnosis SNOMED-CT Code Diagnosis ICD10 Code [id number] KRYSTEN VILLATORO RN [address] [place] [address] 03/30/2024 09:17:41 03/30/2024 10:06:36 [id number] KONSTANTIN KANG PA-C [address] [place] [address] 04/21/2024 09:27:00 04/21/2024 13:04:45 Diarrhea 71898751 R19.7 Health Concerns Section Related Observation LastModified by Organization Detai ls LastModified Time None Recorded Concern Status LastModified by Organization Details LastModified Time None Recorded Payers Encounter Date Sequence Insurance Name Policy Number Policy Escudero Covered Member ID Escudero Member ID Guarantor Name 04/21/2024 1 [place]ICARE [place]: [employer] Jessie Duran [id number] Jessie Duran 04/21/2024 2 [facility]WHERE - MEDICARE ADVANTAGE (MEDICARE REPLACEMENT PPO) [id number] Jessie Duran [id number] Jessie Duran Notes Date Note Type Note Provider Name and Address Organization Details Recorded Time 04/21/2024 text/html HPI Notes: Venus reyes is a 78-year-old female who presents with GI upset. She has had some stomach cramping for the past 3 weeks. 1 week ago she reports fair amount of loose diarrhea which was dark but not dark black tarry or with blood. She feels like she has had a change now and feels more constipated. Throughout this week she reports small amounts of stool in scorched or dribbles with fecal water. Still without blood or melena. She typically has bowel movements once every 2 to 3 days but is having several small movements through the day. She feels like the cramping and bloating has improved but bowel movements have not yet returned to normal. She has not had fevers. She does not have significant abdominal pain. She has had no previous abdominal surgeries. She does have a small left inguinal hernia which she has never had to have addressed because it does not cause her pain. She does not have history of IBS, ulcerative colitis or Crohn's. She has had no recent antibiotic use. No known exposure to C. difficile, no recent visits to hospitals or nursing homes. She has been without nausea or vomiting. No urinary complaints. No other ill symptoms KONSTANTIN KANG PA-C [address], [place], [address], [facility]. 04/22/2024 18:16:05 OBGyn Episode No OBEpisode recorded.
--- OUTSIDE RECORDS SUMMARY | 2024-04-22 22:51 | XMS_ITS | Encounter Summary ---
Author Organization [facility] [place] [address] Care Team Providers Care Snowboarder Name Role Phone Sue Simmons MD Primary Care Provider [phone] Reason for Visit * Reason Comments Annual Exam Encounter Details Date Type Department Care Team (Late st Contact Info) Description 01/13/2019 8:45 AM EDT Office Visit Dermatology at [address] [id number] Renan Ba MD [address] [facility], [place] [address] History of basal cell carcinoma; Dermatitis Social History Tobacco Use Types Packs/Day Years Used Date Smoking Tobacco: Never Smokeless Tobacco: Never Sex and Gender Information Value Date Recorded Sex Assigned at Not on file Gender Identity Not on file Sexual Orientation Not on file documented as of this encounter Progress Notes * Renan Ba MD - 01/13/2019 8:45 AM EDT Problem: 1. Skin checkup 2. 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 History of high school/schooling in [place] 4. 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 She would like to have this checked. She is very fair skin had a fair amount of sun exposure over the years. Physical examination reveals a pleasant 73-year-old woman who has very fair skin with freckling lan moderate lakhani. She has a benign examination of the face the neck the chest the back the hands the arms of forearms thighs and the calves. There is no evidence of any malignant lesions. She does havea slightly erythematous somewhat keratotic papule on the right upper back concerning for either an irritated seborrheic keratosis versus possible SCC versus BCCA. Assessment and plan: Rule out SCC BCCA right upper back 1. After obtaining informed consent site was anesthetized and removed with shave biopsy with C&D x3. 2. Triple antibiotic ointment and Band-Aid placed. 3. After curettage site mentioned measured 6 cm in diameter. 4. Wound care instructions and supplies given History of prior non-melanoma cutaneous malignancies 1. Benign examination today 2. Patient reassured 3. Continue with sun avoidance precautions. 4. Return to clinic in 1 year for repeat check. 5. Patient in the winter sometimes has rough itchy spots on her back that she would like to have mecheck. They go away in the spring and summer. She will make an appointment in the winter if necessary or call with problems. CC: Sue Simmons MD documented in this encounter Plan of Treatment Upcoming Encounters Date Type Department Care Team (Late st Contact Info) Description 10/13/2024 10:15 AM EDT Office Visit Dermatology at [address] [place] [address] Renan Ba MD [address] [facility], [place] [address] documented as of this encounter Visit Diagnoses Diagnosis History of basal cell carcinoma Personal history of other malignant neoplasm of skin Dermatitis Contact dermatitis and other eczema, due to unspecified cause documented in this encounter Care Teams Snowboarder Relationship Specialty Start Date End Date Sue Simmons MD [address] [place] [address] [facility] [address] [place] [address] PCP - General Family Medicine 01/13/19 documented as of this encounter
--- OUTSIDE RECORDS SUMMARY | 2024-04-22 22:51 | XMS_ITS | Encounter Summary ---
Author Organization [facility] Address [address] [place] [address] Care Team Providers Care Embedded Software Test Engineer Name Role Phone Unavailable Primary Care Provider Unavailabl e Encounter Details Date Type Department Care Team (Late st Contact Info) Description 09/24/2007 Results Only [facility] Medicine - [address] [id number] Tierra Taylor MD Social History Tobacco Use Types Packs/Day Years Used Date Smoking Tobacco: Never Assessed Sex and Gender Information Value Date Recorded Sex Assigned at Not on file Gender Identity Not on file Sexual Orientation Not on file documented as of this encounter Plan of Treatment Not on file documented as of this encounter Procedures Procedure Name Priority Date/Time Associated Diagnosis Comments HPV DETECTION, HIGH RISK TYPES Routine 09/24/2007 8:04 EDT CYTOPATHOLOGY Routine 09/24/2007 0:00 EDT documented in this encounter Results * HUMAN PAPILLOMA VIRUS DNA TEST (09/24/2007 8:04 EDT) Specimen Description Cervix, ThinPrep vial [facility] Result Quantity not sufficient. [facility] Report Status Final [id number] [facility] 09/24/2007 8:04 EDT 10/05/2007 8:04 EDT Tierra Taylor MD MICROBIOLOGY - GENER AL ORDERABLES [facility] [address] [place] [address] * CYTOPATHOLOGY (09/24/2007 0:00 EDT) Pathology Report: CYTOPATHOLOGY REPORT Reports generated via electronic interface contain original data; however they are lacking the format of the original report. Caution should be taken when reading/interpreti ng unformatted reports. Name: ? JESSIE TAY ? Accession #: ? [id number] : ? 1945 (Age: 62) ??F ?Collect Date: ? 09/24/2007 Location: ? [facility] ? Receive Date: ? 09/27/2007 Provider: ?TIERRA TAYLOR MD Copy to: ? Specimen/Source: ?ThinPrep Pap Test, Endocervix, processed on Capsule.fm ThinPrep Imaging System, with manual evaluation Last Menstrual Period: ? n/a Previous Gynecologic Pathology: ? [facility] Other: ? Additional clinical information: Cervical stenosis-diffucult to obtain endocervical specimen HPVDX - HPV testing requested regardless of diagnosis on current ThinPrep Pap test. ? SPECIMEN ADEQUACY ? Satisfactory for Evaluation - assessment of transformation zone component not applicable ( e.g. atrophy, vaginal sample, hysterectomy) - scant squamous epithelial component GENERAL CATEGORIZATION ? Negative for Intraepithelial Lesion or Malignancy ? Document reviewed and electronically signed by: ? STAN Horn(ASCP) ? Report Date: ??10/04/2007 07:55 End of Report [facility] 09/24/2007 09/27/2007 Tierra Taylor MD PATHOLOGY ORDERABLES [facility] [address] [place] [address] documented in this encounter Visit Diagnoses Not on filedocumented in this encounter
--- OUTSIDE RECORDS SUMMARY | 2024-04-22 22:51 | XMS_ITS | Encounter Summary ---
[place] [address] Care Team Providers Care Pet Walker Name Role Phone Sue Simmons MD Primary Care Provider [phone] Encounter Details Date Type Department Care Team (Late st Contact Info) Description 08/30/2020 Telephone Ophthalmology at [address] [address] Daja Israel Social History Tobacco Use Types Packs/Day Years [...] 10:15 AM EDT Office Visit Dermatology at [address] [place] [phone] Renan Ba MD [address] [address], [place] [address] documented as of this encounter Visit Diagnoses Not on filedocumented in this encounter Care Teams Pet Walker Relationship Specialty Start Date End Date Sue Simmons MD [facility] JONES [facility] [address] [place] [address] PCP - General Family Medicine 01/13/19 documented as of this encounter
--- OUTSIDE RECORDS SUMMARY | 2024-04-22 22:51 | XMS_ITS | Encounter Summary ---
Author Organization [facility] Address [address] [place] [address] Care Team Providers Care Custom Grinder Name Role Phone Unavailable Primary Care Provider Unavailabl e Encounter Details Date Type Department Care Team (Late st Contact Info) Description 11/17/2007 Results Only [facility] [address] [place] [address] Corey Taylor MD [facility] [place], [place] [id number] Social History Tobacco Use Types Packs/Day Years Used Date Smoking Tobacco: Never Assessed Sex and Gender Information Value Date Recorded Sex Assigned at Not on file Gender Identity Not on file Sexual Orientation Not on file documented as of this encounter Plan of Treatment Not on file documented as of this encounter Procedures Procedure Name Priority Date/Time Associated Diagnosis Comments SURGICAL PATHOLOGY Routine 11/17/2007 0 :00 EDT documented in this encounter Results * SURGICAL PATHOLOGY (11/17/2007 0:00 EDT) Pathology Report: SURGICAL PATHOLOGY REPORT Reports generated via electronic interface contain original data; however they are lacking the format of the original report. Caution should be taken when reading/interpreti ng unformatted reports. Name: ? JESSIE TAY ? Accession #: ? [id number] ? : ? 1945 (Age: 62) ??F ? Collect Date: ? 11/17/2007 ? Location: ? [facility] ? Receive Date: ? 11/18/2007 ? Provider: COREY TAYLOR MD Copy to: LUCIA CUETO MD ? Final Pathologic Diagnosis: A. ?Colon, cecum, polypectomy: 1. ?Tubular adenoma. B. ?Colon, sigmoid, polypectomies: 1. ?Tubular adenoma. 2. ? Fragments of hyperplastic polyp(s). C. ?Rectum, polypectomies: 1. ?Fragments of tubular adenoma(s). 2. ? Hyperplastic polyp. Document reviewed and electronically signed by: JOHN NAVARRO MD Report ??Date: 11/23/2007 17:28 By the signature above, the attending physician certifies that he/she has personally conducted a gross and/or microscopic examination of the described specimens and rendered or confirmed the above diagnosis. Specimen(s) Received: A. ?Cecal polyp ?? B. ? Sigmoid polyps x3 C. ? Rectal polyps Clinical History: ? FH colon cancer Gross Description: ? Received in Hollande's fixative labelled Tay and cecal polyp is a lakhani-pink 0.2 x 0.2 x 0.2 cm soft tissue fragment. ??The specimen is entirely submitted as (A). Received in Hollande's fixative labelled Tay and sigmoid polyp are seven lakhani-pink irregular soft tissues ranging from 0.2 x 0.2 x 0.2 cm to 0.3 x 0.3 x 0.2 cm. ??The specimen is entirely submitted as (B1) to (B3). Received in Hollande's fixative labelled Tay and rectal polyps are three lakhani-pink friable soft tissues averaging 0.2 x 0.2 x 0.2 cm. ??The specimen is entirely submitted as (C). ??(Billy Vigil)/[facility] End of Report [facility] 11/17/2007 11/18/2007 10: 21 EDT Corey Taylor MD PATHOLOGY ORDERABLES Performing Organization Address City/State/[facility] Co de Phone Number [facility] [address] [place] [address] documented in this encounter Visit Diagnoses Not on filedocumented in this encounter
--- OUTSIDE RECORDS SUMMARY | 2024-04-22 22:51 | XMS_ITS | Referral Summary ---
Author Organization [facility] Address [address] [place] [id number] Care Team Providers Care Shipfitter Helper Name Role Phone Unknown, Provider Primary Care Provider Encounters Date Type Department Care Team Description 04/22/2024 Lab Requisition [facility] Pathology & Laboratory Medicine - [address] [address] Outr Resulting Lab, Provider from Last 3 Months Social History Tobacco Use Types Packs/Day Years Used Date Smoking Tobacco: Never Assessed Sex and Gender Information Value Date Recorded Sex Assigned at Not on file Gender Identity Not on file Sexual Orientation Not on file Plan of Treatment Not on file Procedures Procedure Name Priority Date/Time Associated Diagnosis Comments FECAL BACTERIAL PATHOGENS BY PCR Routine 04/22/2024 9:00 EDT from Last 3 Months Results * FECAL BACTERIAL PATHOGENS BY PCR (04/22/2024 9:00 EDT) Salmonella PCR Negative Negative 04/22/2024 22:15 EDT [facility] Shigella/Enteroin vasive E. coli Negative Negative 04/22/2024 22:15 EDT [facility] HN LAB CAMPYLOBACTER PCR Negative Negative 04/22/2024 22:15 EDT [facility] Shiga Toxin PCR Negative Negative 22:15 EDT [facility] Feces SPECIMEN FROM RECTUM / Unknown 04/22/2024 9:00 EDT 04/22/2024 16:19 EDT Provider Outr Resulting Lab MICROBIOLOGY - GENERAL ORDERABLES [facility] [address] [place] [address] from Last 3 Months Care Teams Shipfitter Helper Relationship Specialty Start Date End Date Unknown, Provider, PCP - General 01/15/11
--- OUTSIDE RECORDS SUMMARY | 2024-04-22 22:51 | XMS_ITS | Clinical Summary ---
[place] [address] Care Team Providers Care Air Pollution Control Engineer Name Role Phone Sue Simmons MD Primary Care Provider [phone] Allergies No known active allergies Medications Medication Sig Dispensed Refills Start Date End Date Status VITAMIN D 50,000 unit Capsule TAKE ONE CAPSULE BY MOUTH TWICE WEEKLY 0 11/27/2018 Active Active Problems Problem Noted Date Diagnosed Date Dermatitis 11/13/2017 History of basal cell carcinoma 11/26/2016 Nevus 11/26/2016 Social History Tobacco Use Types Packs/Day Years Used Date Smoking Tobacco: Never Smokeless Tobacco: Never Sex and Gender Information Value Date Recorded Sex Assigned at Not on file Gender Identity Not on file Sexual Orientation Not on file Plan of Treatment Upcoming Encounters Date Type Department Care Team (Late st Contact Info) Description 10/13/2024 10:15 AM EDT Office Visit Dermatology at [address] [place] [phone] Renan Ba MD [address] [place] [address] Health Maintenance Due Date Last Done Comments Hepatitis C Screening 1963 Tetanus/Diphtheria/Pertussis Vaccines (1 - Tdap) 09/12 Zoster vaccine (1 of 2) 1996 Advance Directive 2001 Bone Density Scan 09/13/2011 Pneumoccocal Vaccine: 65+ (1 of 1 - PCV) 09/13/2011 Covid-19 Vaccine ( - 2022-24 season) 2024 Influenza (Flu) vaccine (1 o f 1 - Influenza standard series) 02/28/2024 Care Teams Air Pollution Control Engineer Relationship Specialty Start Date End Date Sue Simmons MD [facility] [address] [place], [place] [id number] PCP - General Family Medicine 01/13/19
--- OUTSIDE RECORDS SUMMARY | 2024-04-22 22:51 | XMS_ITS | Encounter Summary ---
Author Organization [facility] Address [address] [place] [address] Care Team Providers Care Machine Boss Name Role Phone Unavailable Primary Care Provider Unavailabl e Encounter Details Date Type Department Care Team (Late st Contact Info) Description 01/13/2011 Results Only [facility] Laboratory Services - [facility] ([facility]) [address] [place], [place] [id number] Corey Taylor MD [address] [place] [address] Social History Tobacco Use Types Packs/Day Years Used Date Smoking Tobacco: Never Assessed Sex and Gender Information Value Date Recorded Sex Assigned at Not on file Gender Identity Not on file Sexual Orientation Not on file documented as of this encounter Plan of Treatment Not on file documented as of this encounter Procedures Procedure Name Priority Date/Time Associated Diagnosis Comments SURGICAL PATHOLOGY Routine 01/13/2011 0:00 EDT documented in this encounter Results * SURGICAL PATHOLOGY (01/13/2011 0:00 EDT) Pathology Report: SURGICAL PATHOLOGY REPORT ? Reports generated via electronic interface contain original data; ? however they are lacking the format of the original report. ? Caution should be taken when reading/interpreti ng unformatted reports. ? Name: ? TAY, JESSIE ? Accession #: ? [id number] ? : ? 1945 (Age: 65) ??F ? Collect Date: ? 01/13/2011 ? Location: ? [facility] ? Receive Date: ? 01/13/2011 ? Provider: COREY WALKO MD ? Copy to: LUCIA FINE MD ? Final Pathologic Diagnosis: ? A. ?Colon, cecum, polyp, biopsy: ? 1. ?Tubular adenoma. ? B. ?Colon, ascending, polyp, biopsy: ? 1. ?Tubular adenoma. ? Document reviewed and electronically signed by: ? DAFNE IVERSONA MD ? Report ??Date: 01/14/2011 17:20 ? By the signature above, the attending physician certifies that he/she has ? personally conducted a gross and/or microscopic examination of the described ? specimens and rendered or confirmed the above diagnosis. ? Specimen(s) Received: ? A. ?Cecal polyp ? B. ? Ascending colon polyp ? Clinical History: ? H/O colon adenomas ? Gross Description: ? Received in formalin labelled Jessie Tay and #1 cecal polyp is a ? light lakhani biopsy measuring 0.2 x 0.2 x 0.2 cm. ??The specimen is submitted intact as (A). ? Received in formalin labelled Jessie Tay and #2 ascending colon polyp is a 0.7 x 0.2 x 0.1 cm light lakhani biopsy. ??The specimen is submitted intact as (B). (DEAN Laguna)/leeanne ? End of Report ? JUJU ROBISON 01/13/2011 01/13/2011 18: 08 EDT Corey Taylor MD PATHOLOGY ORDERABLES [facility] [address] [place] [address] documented in this encounter Visit Diagnoses Not on filedocumented in this encounter
--- OUTSIDE RECORDS SUMMARY | 2024-04-22 22:51 | XMS_ITS | Encounter Summary ---
[place] [address] Care Team Providers Care Marine Service Manager Name Role Phone Tierra Taylor MD Primary Care Provider [phone] Reason for Visit * Reason Comments Skin Check Encounter Details Date Type Department Care Team (Late st Contact Info) Description 11/26/2016 10:00 AM EDT Office Visit Dermatology at [address] [phone] Renan Ba MD [address] [facility], [place] [address] History of basal cell carcinoma; Nevus Social History Tobacco Use Types Packs/Day Years Used Date Smoking Tobacco: Never Sex and Gender Information Value Date Recorded Sex Assigned at Not on file Gender Identity Not on file Sexual Orientation Not on file documented as of this encounter Progress Notes * Renan Ba MD - 11/26/2016 10:00 AM EDT PROBLEM: 1. Skin checkup. 2. History of BCCA, left nasal sidewall, excised Mohs surgery in [place], November 2003. Jessie follows up and is referred back by Dr. Taylor for just a general skin checkup. She has had a fair amount of sun over the years, and Dr. Taylor thought it would be good to have another dermatologic screening. The patient states that she has had a couple of spots treated with liquid nitrogen, but has had no history of skin cancer since her Mohs surgery in November of 2003. Physical examination reveals a pleasant 71-year-old woman who has a very well-healed Mohs surgical scar on the upper left nasal sidewall. Careful examination of the patient's face, her neck, chest, back, hands, arms, forearms, thighs and calves, soles of feet, and toe web spaces, is entirely benign. She has a number of hard clavi on the distal soles of both feet, but no evidence of any malignancies and/or any significant actinic keratoses on complete skin examination today. ASSESSMENT AND PLAN: Benign skin examination in a patient with a history of BCCA. a. Continue sun avoidance precautions, which the patient is following. b. Recommend to see patient on a once every 5 year basis, sooner if any new lesions of concern. The patient was congratulated on her following of sun-avoidance precautions. cc: Tierra Taylor MD documented in this encounter Plan of Treatment Upcoming Encounters Date Type Department Care Team (Late st Contact Info) Description 10/13/2024 10:15 AM EDT Office Visit Dermatology at [place] [address] [place] [address] Renan Ba MD [address] [facility], [facility] [place] [address] documented as of this encounter Visit Diagnoses Diagnosis History of basal cell carcinoma Personal history of other malignant neoplasm of skin Nevus Benign neoplasm of skin, site unspecified documented in this encounter Care Teams Marine Service Manager Relationship Specialty Start Date End Date Tierra Taylor MD [address] [place] [address] PCP - General 05/21/10 01/12/19 documented as of this encounter
--- OUTSIDE RECORDS SUMMARY | 2024-04-22 22:51 | XMS_ITS | Encounter Summary ---
[place] [address] Care Team Providers Care Applications Systems Engineer Name Role Phone Sue Simmons MD Primary Care Provider Reason for Visit * Reason Comments Skin Check Encounter Details Date Type Department Care Team (Late st Contact Info) Description 09/30/2021 4:00 PM EDT Office Visit Dermatology at [address] [place] [phone] Renan Ba MD [address] [facility], [place] [address] History of basal cell carcinoma; AK (actinic keratosis) Social History Tobacco Use Types Packs/Day Years Used Date Smoking Tobacco: Never Smokeless Tobacco: Never Sex and Gender Information Value Date Recorded Sex Assigned at Not on file Gender Identity Not on file Sexual Orientation Not on file documented as of this encounter Progress Notes * Renan Ba MD - 09/30/2021 4:00 PM EDT Problem: 1. ??Skin checkup 2. ??History of BCCA left nasal sidewall excised with Mohs surgery [place] November 2003 3. ??History of high school/schooling in [place] 4. ??History of BCCA left lateral neck December 2016 Jessie follows up for repeat skin checkup. She has been doing well. She has noted a rough lesion on the right lateral cheek. Physical examination reveals a pleasant 76-year-old woman who has a flattopped papule on the right mid cheek consistent with an actinic keratosis. She has an erythematous airplane shaped patch on herleft mid cheek concerning also for an actinic keratosis. Otherwise careful examination of the head the neck chest back hands arms forearms thighs and calves is benign. Assessment and plan: Actinic keratosis, facial 1. LN 2 x 2 applied to each of 2 sites 2. Reassured the patient about the remainder of benign skin examination 3. No evidence of recurrent BCC on the left nasal sidewall nor on the left lateral neck 4. Return to clinic in 1 year for repeat check CC: Sue Simmons MD documented in this encounter Plan of Treatment Upcoming Encounters Date Type Department Care Team (Late st Contact Info) Description 10/13/2024 10:15 AM EDT Office Visit Dermatology at [place] [address] [facility] [place] [address] Renan Ba MD [address] [facility], [place] [address] documented as of this encounter Visit Diagnoses Diagnosis History of basal cell carcinoma Personal history of other malignant neoplasm of skin AK (actinic keratosis) Actinic keratosis documented in this encounter Care Teams Applications Systems Engineer Relationship Specialty Start Date End Date Sue Simmons MD [address] [place] [address] PCP - General Family Medicine 01/13/19 documented as of this encounter
--- OUTSIDE RECORDS SUMMARY | 2024-04-22 22:51 | XMS_ITS | Encounter Summary ---
[place] [address] Care Team Providers Care Finance Professional Name Role Phone Sue Simmons MD Primary Care Provider [phone] Reason for Visit * Reason Comments Annual Exam Encounter Details Date Type Department Care Team (Late st Contact Info) Description 10/12/2023 10:15 AM EDT Office Visit Dermatology at [address] [phone] Renan Ba MD [address] [facility], [place] [address] History of basal cell carcinoma Social History Tobacco Use Types Packs/Day Years Used Date Smoking Tobacco: Never Smokeless Tobacco: Never Sex and Gender Information Value Date Recorded Sex Assigned at Not on file Gender Identity Not on file Sexual Orientation Not on file documented as of this encounter Progress Notes * Renan Ba MD - 10/12/2023 10:15 AM EDT Problem: 1. Skin checkup 2. 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 History of high school/schooling in [employer] [place] 4. History of BCCA left lateral neck December 2016 Jessie follows up for repeat skin checkup. She has been doing well. She spent a lot of time out ofdoors taking care of her horses and maintaining the property gardening shopping etc. she has now lived for 20 years in [place]. Physical examination reveals a pleasant 78-year-old woman who has very fair freckled skin and moderate solar damage diffusely. Fortunately she has a benign examination of the head and the neck the chest the back hands arms forearms thighs and calves. There is no evidence of any recurrent tumor at the above 2 prior BCC treatment sites. Assessment plan: Benign skin examination 1. Patient reassured about her benign skin examination 2. Recommend that I continue to see her on a once yearly basis. 3. Recommend using SPF 50 sunscreen rather than 15. CC: Sue Simmons MD documented in this encounter Plan of Treatment Upcoming Encounters Date Type Department Care Team (Late st Contact Info) Description 10/13/2024 10:15 AM EDT Office Visit Dermatology at [place] [address] [place] [address] Renan Ba MD [address] [facility], [address] A DERMATOLOGY [place], [place] [phone] documented as of this encounter Visit Diagnoses Diagnosis History of basal cell carcinoma Personal history of other malignant neoplasm of skin documented in this encounter Care Teams Finance Professional Relationship Specialty Start Date End Date Sue Simmons MD [address] [place] [address] [facility] 1 [place] [address] PCP - General Family Medicine 01/13/19 documented as of this encounter
--- OUTSIDE RECORDS SUMMARY | 2024-04-22 22:51 | XMS_ITS | Encounter Summary ---
[place] [address] Care Team Providers Care Finishing Machine Operator Automatic Name Role Phone Sue Simmons MD Primary Care Provider [phone] Encounter Details Date Type Department Care Team (Latest Contact Info) Description 10/12/2023 Travel Social History Tobacco Use Types Packs/Day [...] 10:15 AM EDT Office Visit Dermatology at [place] [address] [place] [phone] Renan Ba MD [address] [facility] [address], [address] [address] documented as of this encounter Visit Diagnoses Not on filedocumented in this encounter Care Teams Finishing Machine Operator Automatic Relationship Specialty Start Date End Date Sue Simmons MD [facility] [address] [place] [address] PCP - General Family Medicine 01/13/19 documented as of this encounter
--- OUTSIDE RECORDS SUMMARY | 2024-04-22 22:51 | XMS_ITS | Encounter Summary ---
Author Organization [facility] Address [address] [place] [address] Care Team Providers Care Semi Conductor Assembler Name Role Phone Unknown, Provider Primary Care Provider [phone] Encounter Details Date Type Department Care Team (Late st Contact Info) Description 03/28/2011 Results Only [facility] Family Medicine - [address] [phone] Tierra Taylor MD Social History Tobacco Use Types Packs/Day Years Used Date Smoking Tobacco: Never Assessed Sex and Gender Information Value Date Recorded Sex Assigned at Not on file Gender Identity Not on file Sexual Orientation Not on file documented as of this encounter Plan of Treatment Not on file documented as of this encounter Procedures Procedure Name Priority Date/Time Associated Diagnosis Comments PAP TEST- RESULT ONLY Routine 03/28/2011 0:00 EDT documented in this encounter Results * PAP TEST- RESULT ONLY (03/28/2011 0:00 EDT) Pathology Report: CYTOPATHOLOGY REPORT Reports generated via electronic interface contain original data; however they are lacking the format of the original report. Caution should be taken when reading/interpreti ng unformatted reports. Name: ? JESSIE TAY ? Accession #: ? [id number] ? : ? 1945 (Age: 65) ??F ?Collect Date: ? 03/28/2011 ? Location: ? [facility] ? Receive Date: ? 03/31/2011 ? Provider: TIERRA TAYLOR MD Copy to: ? Final Report SPECIMEN ADEQUACY ? Satisfactory for Evaluation - assessment of transformation zone component not applicable ( e.g. atrophy, vaginal sample, hysterectomy) GENERAL CATEGORIZATION ? Negative for Intraepithelial Lesion or Malignancy ?? Other: Additional clinical information: Atrophic vaginitis. Cervical stenosis. Specimen/Source: ??Pap Test, Endocervix, ThinPrep Imaging System with manual evaluation Document reviewed and electronically signed by: ? Kyra Goldsmith, STAN(ASCP) ? Report ??Date: 04/03/2011 12:55 HPV with Pap Test ? Date Ordered: ? 04/03/2011 ? Status: ?? Signed Out ?Date Complete: ? 04/07/2011 ? By: ??System Interface ? Date Reported: ? 04/07/2011 ? Interpretation RESULT: Negative for HPV types 16, 18, 31, 33, 35, 39, 45, 51, 52, 56, 58, 59, and 68. Comments Document reviewed and electronically signed by: ? System Interface ? Report date: 04/07/2011 By the signature above, the attending physician certifies that he/she has personally conducted a gross and/or microscopic examination of the described specimens and rendered or confirmed the above diagnosis. End of Report JUJU ROBISON 03/28/2011 03/31/2011 Tierra Taylor MD PATHOLOGY ORDERABLES [facility] [address] [place] [address] documented in this encounter Visit Diagnoses Not on filedocumented in this encounter Care Teams Semi Conductor Assembler Relationship Specialty Start Date End Date Unknown, Provider, PCP - General 01/15/11 documented as of this encounter
--- OUTSIDE RECORDS SUMMARY | 2024-04-22 22:51 | XMS_ITS | Encounter Summary ---
Author Organization [facility] Address [address] [place] [address] Care Team Providers Care Video Surveillance Technician Name Role Phone Unknown, Provider Primary Care Provider [phone] Encounter Details Date Type Department Care Team (Late st Contact Info) Description 04/22/[address] [facility] Pathology & Laboratory Medicine - [facility] [address] [place] [address] Outr Resulting Lab, Provider Social History Tobacco Use Types Packs/Day Years [...] PATHOGENS BY PCR Routine 04/22/2024 9:00 EDT documented in this encounter Results * FECAL BACTERIAL PATHOGENS BY PCR (04/22/2024 9:00 EDT) Salmonella PCR Negative Negative 04/22/2024 22:15 EDT [facility] Shigella/Enteroin vasive E. coli Negative Negative 04/22/2024 22:15 EDT [facility] HN LAB CAMPYLOBACTER PCR Negative Negative 04/22/2024 22:15 EDT [facility] Shiga Toxin PCR Negative Negative 22:15 EDT [facility] Feces SPECIMEN FROM RECTUM / Unknown 04/22/2024 9:00 EDT 04/22/2024 16:19 EDT Provider Outr Resulting Lab MICROBIOLOGY - GENERAL ORDERABLES [facility] [address] [place] [phone] documented in this encounter Visit Diagnoses Not on filedocumented in this encounter Care Teams Video Surveillance Technician Relationship Specialty Start Date End Date Unknown, Provider, PCP - General 01/15/11 documented as of this encounter
--- OUTSIDE RECORDS SUMMARY | 2024-04-22 22:51 | XMS_ITS | Encounter Summary ---
[place] [address] Care Team Providers Care Rock Climbing Team Member Name Role Phone Sue Simmons MD Primary Care Provider [phone] Reason for Visit * Reason Comments Skin Check Annual Exam Encounter Details Date Type Department Care Team (Late st Contact Info) Description 10/02/2022 10:15 AM EDT Office Visit Dermatology at [address] [phone] Renan Ba MD [address] [facility], [place] [address] History of basal cell carcinoma; AK (actinic keratosis) Social History Tobacco Use Types Packs/Day Years Used Date Smoking Tobacco: Never Smokeless Tobacco: Never Sex and Gender Information Value Date Recorded Sex Assigned at Not on file Gender Identity Not on file Sexual Orientation Not on file documented as of this encounter Progress Notes * Renan Ba MD - 10/02/2022 10:15 AM EDT Problem: 1. ??Skin checkup 2. ??History of BCCA left nasal sidewall excised with Mohs surgery [place] November 2003 3. ??History of high school/schooling in [place] 4. ??History of BCCA left lateral neck December 2016 ?? Jessie follows up for repeat skin checkup. She has been doing well. She spent a lot of time out ofdoors taking care of her horses and maintaining the property gardening shopping etc. Physical examination reveals a pleasant 77-year-old woman who has very fair freckled skin [...] 10:15 AM EDT Office Visit Dermatology at [place] [address] [facility] [place] [address] Renan Ba MD [address] [facility], [place] [address] documented as of this encounter Visit Diagnoses Diagnosis History of basal cell carcinoma Personal history of other malignant neoplasm of skin AK (actinic keratosis) Actinic keratosis documented in this encounter Care Teams Rock Climbing Team Member Relationship Specialty Start Date End Date Sue Simmons MD [address] [place] [address] [facility] [address] [place] [address] PCP - General Family Medicine 01/13/19 documented as of this encounter
--- OUTSIDE RECORDS SUMMARY | 2024-04-22 22:51 | XMS_ITS | Encounter Summary ---
[place] [address] Care Team Providers Care Collet Gluer Name Role Phone Tierra Taylor MD Primary Care Provider [phone] Reason for Visit * Reason Comments Follow-up Skin Check Encounter Details Date Type Department Care Team (Late st Contact Info) Description 11/13/2017 2:15 PM EDT Office Visit Dermatology at [address] [place] [phone] Renan Ba MD [address] [facility], [facility]OLOG[facility] [place], [place] [id number] History of basal cell carcinoma; Dermatitis Social History Tobacco Use Types Packs/Day Years Used Date Smoking Tobacco: Never Smokeless Tobacco: Never Sex and Gender Information Value Date Recorded Sex Assigned at Not on file Gender Identity Not on file Sexual Orientation Not on file documented as of this encounter Progress Notes * Renan Ba MD - 11/13/2017 2:15 PM EDT Problem: 1. Skin checkup 2. History BCC left nasal sidewall excised with [place] surgery [place] 2003 Jessie follows up and on September 12 was in [place] and applied her sister's sunscreen to her own face. Thereafter she developed a red itchy rash that took almost a month and have to go away. Today is largely gone but she wanted me to check and see if I might advise her as to what this might of been from. Also she has noted a lesion on the left lateral neck that she like to have checked. He has nothealed not gone away over many months. The examination is a pleasant 72-year-old woman who has a well-healed surgical Mohs scar on the left upper nasal sidewall. She has an ovoid erythematous or indurated patch plaque about a centimeter in diameter on the left upper lateral neck. Today she has no dermatitis of the face. She is some milddryness. She has 1 or 2 small micropustules on her chin. However there is no no dermatitis per se. Examination of the face the neck the chest the back the hands arms informs is benign. Assessment plan: Probable BCCA versus SCCA upper left lateral neck 1. After obtaining informed consent site was anesthetized and removed with shave C&D 2. Triple antibiotic ointment bandage placed. After curettage site measured 1 cm diameter 3. Will notify patient biopsy results in 1 week. Discussed wound care instructions. Recent facial dermatitis 1. The description is certainly one of a possible allergic versus irritant contact dermatitis. 2. Patient denies any change in her skin care regimen she is using now the same things that she wasusing all of her life and the rash is cleared. 3. This is a bit of a mystery so I would recommend she return to clinic should this recur 4. Discussed the possible need for patch testing. Cc: Hayley Hathaway MD documented in this encounter Plan of Treatment Upcoming Encounters Date Type Department Care Team ([facility] Contact Info) Description 10/13/2024 10:15 AM EDT Office Visit Dermatology at [place] [address] [place] [phone] Renan Ba MD [address], [place] [address] documented as of this encounter Visit Diagnoses Diagnosis History of basal cell carcinoma Personal history of other malignant neoplasm of skin Dermatitis Contact dermatitis and other eczema, due to unspecified cause documented in this encounter Care Teams Collet Gluer Relationship Specialty Start Date End Date Tierra Taylor MD [address] [place] [address] PCP - General 11/23/10 7/17/19 documented as of this encounter
--- OUTSIDE RECORDS SUMMARY | 2024-04-22 22:51 | XMS_ITS | Data Portability ---
Author Organization 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 Assessment Encounter Date Assessment Date Assessment LastModified by Organization Details LastModified Time 03/30/2024 03/30/2024 IFOB test negative; documented on order [email or web address] Not available 03/30/2024 09:59:30 Plan of Treatment Reminders Order Date Submit Date Provider Last Modified By Organization Details Last Modified Time Details Appointments Nurse Visit 20 2023 01:40P M [facility] Nursing Staff Not available Not available Not available Annual Wellness Exam 40 2024 09:00A M Sue Otooleus Not available Not available Not available Lab fecal occult blood, immunoas say, stool 2022 023 [email or web address] [facility], [address], [place], [address], 05/28/2023 16:10:06 fecal occult blood, immunoas say, stool 2023 024 [email or web address] [facility], [address], [place], [address], 03/30/2024 10:03:56 O&P (ova & parasite s), stool 2023 024 [email or web address] [facility] ([facility]), [facility] , [place], [address], 04/21/2024 12:30:53 culture, stool 2023 [facility] ([facility]), [address] [place] [address] [place], [address], 04/21/2024 14:00:37 C diff toxin DNA, stool 2023 [facility] ([facility]), [address] [place] [address] [place], [address], 04/22/2024 12:06:29 giardia + cryptosp oridium Ag, stool 2023 [facility][1] (Outpatient Lab), [address] [place] [address], [place], [address], 04/21/2024 13:50:42 CBC w/ auto diff 2023 [facility] ([facility]), [address] [place] [address] [place], [address], 04/21/2024 17:56:16 CMP, serum or plasma 2023 [facility] ([facility]), [address] [place] [address] [place], [address], 04/21/2024 17:56:18 C-reacti ve protein, quantita tive, serum or plasma 2023 [facility] ([facility]), [address] [place] [address] [place], [address], 04/21/2024 18:00:55 Referral None recorded . Procedures None recorded . Surgeries None recorded . Imaging MAMMO, screenin g, bilatera l 2023 [facility] (Radiology), [address] [place] [address] [place], [address], 02/17/2024 14:09:03 Medication Orders None recorded . Patient TargetsNo targets recorded. Patient Instructions Encounter Date Encounter Id Patient Instructions Last Modified By Organization Details Last Modified Time 04/21/2024 [id number] 1. Blood work obtained today will likely have results back before we close. When they return I will call you to review findings. 2. You have been given materials and instructions on how to obtain stool studies. Please remember that the study for crypto and Giardia needs to go to [facility]. All of the other stool studies can go to [facility]. 3. Stool studies will come back [...] 04/21/2024 12:29:11 Reason for Referral None Reported. Results Created Date Observation Date Name Description Value Unit Range Abnormal Flag Note LastModifiedBy Organization Detail LastModifiedTime 05/28/2005/28/2023 fecal occul t blood , immun oassa y, stool iFOB negati ve Not Available [facility] [address], [place], [address], 05/28/2023 12:18:17 03/30/20 24 03/30/2024 fecal occul t blood , immun oassa y, stool ifob negati ve Not Available [facility] [address], [place], [address], 03/30/2024 09:54:01 04/21/20 24 04/21/2024 COMPL ETE BLOOD COUNT W/DIF F WBC 3.88 10_3/ uL 4.4-10 .8 low Not Available [facility] [address] [place] [address] , [place], [address] 04/21/2024 17:56:16 04/21/20 24 04/21/2024 COMPL ETE BLOOD COUNT W/DIF F RBC 4.25 10_6/ uL 3.93-5 .22 normal Not Available [address] [place], [address] 04/21/2024 17:56:16 04/21/2004/21/2024 COMPL ETE BLOOD COUNT W/DIF F HGB 13.4 g/dL 11.2-1 5.7 normal Not Available [address] [place], [address] 04/21/2024 17:56:16 04/21/2004/21/2024 COMPL ETE BLOOD COUNT W/DIF F HCT 40.7 % 36.0-4 6.0 normal Not Available [address] [place], [address] 04/21/2024 17:56:16 04/21/2004/21/2024 COMPL ETE BLOOD COUNT W/DIF F MCV 96 fL 80-95 high Not Available [address] [place], [address] 04/21/2024 17:56:16 04/21/2004/21/2024 COMPL ETE BLOOD COUNT W/DIF F MCH 31.5 pg 27.0-3 3.0 normal Not Available [address] [place], [address] 04/21/2024 17:56:16 04/21/2004/21/2024 COMPL ETE BLOOD COUNT W/DIF F MCHC 32.9 % 32.0-3 6.0 normal Not Available [address] [place], [address] 04/21/2024 17:56:16 04/21/2004/21/2024 COMPL ETE BLOOD COUNT W/DIF F RDW 12.1 % 11.7-1 4.6 normal Not Available [address] [place], [address] 04/21/2024 17:56:16 04/21/2004/21/2024 COMPL ETE BLOOD COUNT W/DIF F platelet count 295 10_3/ uL 130-40 0 normal Not Available [address] [place], [address] 04/21/2024 17:56:16 04/21/2004/21/2024 COMPL ETE BLOOD COUNT W/DIF F MPV 9.8 fL 8.0-11 .0 normal Not Available [address] [place], [address] 04/21/2024 17:56:16 04/21/2004/21/2024 COMPL ETE BLOOD COUNT W/DIF F neutrophils % 55.6 % Not Available [address] [place], [address] 04/21/2024 17:56:16 04/21/2004/21/2024 COMPL ETE BLOOD COUNT W/DIF F lymphocytes % 33.0 % Not Available [address] [place], [address] 04/21/2024 17:56:16 04/21/2004/21/2024 COMPL ETE BLOOD COUNT W/DIF F monocytes % 9.3 % Not Available [address] [place], [address] 04/21/2024 17:56:16 04/21/2004/21/2024 COMPL ETE BLOOD COUNT W/DIF F eosinophils % 1.3 % Not Available [address] [place], [address] 04/21/2024 17:56:16 04/21/2004/21/2024 COMPL ETE BLOOD COUNT W/DIF F basophils % 0.8 % Not Available [address] [place], [address] 04/21/2024 17:56:16 04/21/2004/21/2024 COMPL ETE BLOOD COUNT W/DIF F immature grans % 0.0 % Not Available [address] [place] [facility] [place], [address] 04/21/2024 17:56:16 04/21/2004/21/2024 COMPL ETE BLOOD COUNT W/DIF F nucleated RBC 0.0 % 0.0-0. 3 normal Not Available [address] [place], [address] 04/21/2024 17:56:16 04/21/2004/21/2024 COMPL ETE BLOOD COUNT W/DIF F absolute neutrophil count 2.16 10_3/ uL 1.2-6. 7 normal Not Available [address] [place], [address] 04/21/2024 17:56:16 04/21/2004/21/2024 COMPL ETE BLOOD COUNT W/DIF F absolute lymphocyte count 1.28 10_3/ uL 1.2-3. 4 normal Not Available [address] [place], [address] 04/21/2024 17:56:16 04/21/2004/21/2024 COMPL ETE BLOOD COUNT W/DIF F absolute monocyte count 0.36 10_3/ uL 0.1-0. 8 normal Not Available [address] [place], [address] 04/21/2024 17:56:16 04/21/2004/21/2024 COMPL ETE BLOOD COUNT W/DIF F absolute eosinophil count 0.05 10_3/ uL 0.0-0. 7 normal Not Available [address] [place], [address] 04/21/2024 17:56:16 04/21/2004/21/2024 COMPL ETE BLOOD COUNT W/DIF F absolute basophil count 0.03 10_3/ uL 0.0-0. 2 normal Not Available [address] [place], [address] 04/21/2024 17:56:16 04/21/2004/21/2024 COMPR EHENS TRE METAB OLIC PANEL calcium 9.5 mg/dL 8.5-10 .1 normal Not Available [address] [place], [address] 04/21/2024 17:56:18 04/21/2004/21/2024 COMPR EHENS TRE METAB OLIC PANEL glucose 91 mg/dL 74-106 normal Not Available [address] [place], [address] 04/21/2024 17:56:18 04/21/2004/21/2024 COMPR EHENS TRE METAB OLIC PANEL BUN 23 mg/dL 7-18 high Not Available Ana mathew [address] [place], [address] 04/21/2024 17:56:18 04/21/2004/21/2024 COMPR EHENS TRE METAB OLIC PANEL creatinine 0.8 mg/dL 0.55-1 .02 normal Not Available [address] [place], [address] 04/21/2024 17:56:18 04/21/2004/21/2024 COMPR EHENS TRE METAB OLIC PANEL estimated GFR 75.84 mL/min /1.73M 2 The eGFR is calcu lated from a serum creat inine using the CKD-E PI 2020 equat ion. Other varia bles requi red for the equat ion are gende r and age; this equat ion does not inclu de a race coeff icien t. This equat ion has simil ar overa ll perfo rmanc e to previ ous equat ions excep t value s may diffe r, in parti cular , in patie nts with highe r value s of eGFR and young er-ag ed adult s. Not Available [address] [place], [address] 04/21/2024 17:56:18 04/21/2004/21/2024 COMPR EHENS TRE METAB OLIC PANEL total protein 7.0 g/dL 6.4-8. 2 normal Not Available [address] [place], [address] 04/21/2024 17:56:18 04/21/2004/21/2024 COMPR EHENS TRE METAB OLIC PANEL albumin 4.0 g/dL 3.4-5. 0 normal Not Available [address] [place], [address] 04/21/2024 17:56:18 04/21/2004/21/2024 COMPR EHENS TRE METAB OLIC PANEL bilirubin, total 0.82 mg/dL 0.2-1. 0 normal Not Available [address] [place], [address] 04/21/2024 17:56:18 04/21/2004/21/2024 COMPR EHENS TRE METAB OLIC PANEL alk phos 57 U/L 46-116 normal Not Available [address] [place], [address] 04/21/2024 17:56:18 04/21/2004/21/2024 COMPR EHENS TRE METAB OLIC PANEL sodium 143 mmol/ L 136-14 5 normal Not Available [address] [place], [address] 04/21/2024 17:56:18 04/21/2004/21/2024 COMPR EHENS TRE METAB OLIC PANEL potassium 4.2 mmol/ L 3.5-5. 1 normal Not Available [address] [place], [address] 04/21/2024 17:56:18 04/21/2004/21/2024 COMPR EHENS TRE METAB OLIC PANEL chloride 106 mmol/ L 98-107 normal Not Available [address] [place], [address] 04/21/2024 17:56:18 04/21/2004/21/2024 COMPR EHENS TRE METAB OLIC PANEL CO2 29.8 mmol/ L 21.0-3 2.0 normal Not Available [address] [place], [address] 04/21/2024 17:56:18 04/21/2004/21/2024 COMPR EHENS TRE METAB OLIC PANEL anion gap 7.2 mmol/ L 3-11 normal Not Available [address] [place], [address] 04/21/2024 17:56:18 04/21/2004/21/2024 COMPR EHENS TRE METAB OLIC PANEL AST 20 U/L 15-37 normal Not Available [address] [place], [address] 04/21/2024 17:56:18 04/21/2004/21/2024 COMPR EHENS TRE METAB OLIC PANEL ALT 24 U/L 14-59 normal Not Available Ana mathew [address] [place], [address] 04/21/2024 17:56:18 04/21/2004/21/2024 C-MIQUEL CTIVE PROTE IN C-reactive protein < 0.50 mg/dL <or=0. 5 Not Available [facility] ([facility]) [address] [place] [address] [place], [address], 04/21/2024 17:56:19 04/22/2004/22/2024 C DIFF PCR C diff PCR TNP negati ve Testi ng not indic ated on forme d stool speci mens. This test does not diffe renti ate betwe en patie nts who may be colon ized and those with activ e C.dif ficil e infec tion. Only sympt omati c patie nts with liqui d or soft stool speci mens will be proce ssed. Not Available [address] [place], [address] 04/22/2024 12:06:29 02/17/2002/17/2024 MAMMO , scree shruthi, bilat eral Patineda t Name: Annita Duran Unit #: [id number] Loc: DI Orderi ng Provid er: Sue Simmons M.D. Accoun t #: [id number] Status : REG CLI Primar y Care Provid er: Sue Simmons M.D. Date of Exam: Sex: F Admiss [...] trinh report was provid ed to the patien t to raise their awaren ess. Use [...] result s. Two Ordere d By: Sue Simmons M.D. CC: ------ ------ ------ ------ ------ ------ ------ ------ ------ ------ ------ ------ - Dictat ed By: Ben Mathur 1345 08/21/ 24 1345 Transc ribed By: Chris Rodas 1345 This is privil eged, confid ential inform ation intend ed only for the provid er named. Any use or distri bution by any person other than this provid er is strict ly prohib ited. If you receiv e this report in error, please notify us immedi donta at and return the origin al report to us at the addres s above. Thank- you. [email or web address] [facility] (Radiology) [address], [place], [address], 02/17/2024 14:09:04 03/14/20 24 12/26/2020 bone densi ty No observ ation record ed. Not Available 03/14 03:49:02 03/14/20 24 02/03/2023 bone densi ty No observ ation record ed. Not Available 03/14 03:49:03 03/14/20 24 12/26/2020 MAMMO , scree shruthi No observ ation record ed. Not Available 03/14 03:49:04 03/14/20 24 02/03/2023 MAMMO , scree shruthi No observ ation record ed. Not Available 03/14 03:49:05 03/14/20 24 11/11/2018 MAMMO , scree shruthi No observ ation record ed. Not Available 03/14 03:49:06 03/14/20 24 11/11/2018 imagi ng/di agnos tic resul t No observ ation record ed. Not Available 03/14 03:49:22 03/14/20 24 02/23/2023 XR, foot No observ ation record ed. [email or web address] [facility] [address], [place], [address], 04/20/2024 14:58:28 03/14/20 24 02/23/2023 imagi ng/di agnos tic resul t No observ ation record ed. Not Available 03/14 03:49:25 Result Notes Documentation Provider Name and Address Organization Details Recorded Time Mammo, Screening, Bilateral : Patient Name: Jessie Durna Unit #: [id number] Loc: [facility] Ordering Provider: Sue Simmons M.D. 6 Status: REG CLI Primary Care Provider: Sue Simmons M.D. Date of Exam: Sex: F Admission Date: 02/17/24 : 1945 Age: 78 Exam(s) MG MAMMO SCREENING EXAM: MG MAMMO SCREENING MG MAMMO SCREENING tissue. CLINICAL HISTORY: Z12.31 Screening TECHNIQUE: Mammograms were interpreted according to the usual protocol including computer analysis with CAD system, tomosynthesis and C-view imaging. COMPARISON: 2014 through 2022 FINDINGS: The breasts are composed of heterogeneously dense fibroglandular densities, Breast Density category C. No suspicious masses or suspicious microcalcifications are seen. No skin thickening or abnormal axillary lymph nodes are seen. There has been no significant change from prior exams. IMPRESSION: BI-RADS Category 1, Negative mammogram. Yearly screening mammography is recommended. Breast Density Category C, heterogeneously Dense. The mammogram demonstrates the patient's breast tissue is dense. Dense breast tissue is very common and is not abnormal but dense breast tissue can make it harder to find cancer on a mammogram. Also, dense breast tissue may increase breast cancer risk. This information about the result of the mammogram report was provided to the patient to raise their awareness. Use this report when you speak with the patient about their risks for breast cancer, which includes their family history. At that time, you may recommend additional screening tests (Ultrasound or MRI) as they might be useful based on their risk. A negative radiographic report should not delay biopsy if a dominant or clinically suspicious mass is present. Up to ten percent of cancers are not identified on mammography. A negative report may reinforce clinical impression. Adenosis and dense breasts may obscure an underlying neoplasm. False positive reports average 6 to 10%. Patient will receive a letter notifying them of these results. Two Ordered By: Sue Simmons M.D. CC: Dictated By: Norma Rodas M.D. 02/17/24 1345 02/17/24 1345 Transcribed By: Norma Rodas 02/17/24 1345 This is privileged, confidential information intended only for the provider named. Any use or distribution by any person other than this provider is strictly prohibited. If you receive this report in error, please notify us immediately at [phone] and return the original report to us at the address above. Thank-you. MD [address], [facility] [id number] [place] [address] 02/17/2024 14:09:04 Problems Name Problem SNOMED Code Status Onset Date Resolution Date Notes Provider Name and Address Organization Details Recorded Time Osteoart hritis 752350925 Active [address], [facility] [address] , [facility] 4 17:24:57 Senile osteopor osis 28143998 Active 2011 Alendron ate 08/2011-: ZOMETA in 02/2021, 2021, [address], [facility] [address] , [facility] 4 17:40:14 History of malignan t neoplasm of skin 359474870 Active 2003 Dr Falcon annually . 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 62869259959 9107 Active [address], [place] [address] , [facility] 4 17:25:59 Hearing loss 99001109 Active 2015 hearing aides MD Món[address], [place] [address] , [facility] 4 11:13:29 Adult health examinat ion Active [address], [place] [address] , [facility] 4 17:24:00 Screenin g mammogra phy Completed 201801/24/2024 Problem Code: Z12.31; Problem Code Type: ICD-10; MD Món[address], [place] [address] , [facility] 4 17:25:15 Actinic keratosi s 997668989 Active [address], [place] [address] , [facility] 4 17:23:42 Abnormal weight loss 137846839 Completed 201812/08/2018 Problem Code: R63.4; Problem Code Type: ICD-10; Not Available [facility] 3 05:11:48 Vitamin D deficien cy 05982544 Active [address], [place] [address] , [facility] 4 17:26:15 Vitamin B deficien 92501509 Active 2018 B12 312 [address], [place], [address] , [facility] 4 17:28:35 Elevated blood-pr essure reading without diagnosi s of hyperten gage 505964123 Completed 202001/24/2024 01/14/20 22 - Comments only - Sue Simmons MD - BP excellen t in the office today, and has been okay at home, no need for medicaio ns at this time. Continue to monitor, continue to avoid extra salt. Problem Code: R03.0; Problem Code Type: ICD-10; MD [address], [place], [address] , [facility] 4 17:24:35 Pain of toe of right foot 90075905962 9101 Active [address], [place], [address] , [facility] 4 17:25:04 Screenin g for malignan t neoplasm of colon Completed 202201/24/2024 Problem Code: Z12.11; Problem Code Type: ICD-10; MD [address], [place], [address] , [facility] 4 17:25:13 Carpal tunnel syndrome 15199851 Completed 200710/28/2016 Problem Code: G56.00; Problem Code Type: ICD-10; Not Available [facility] 3 05:11:49 Benign neoplasm of colon 60627735 Completed 201010/28/2016 Problem Code: D12.6; Problem Code Type: ICD-10; Not Available [facility] 3 05:11:49 Screenin g for disorder Completed 201503/25/2023 Problem Code: Z13.9; Problem Code Type: ICD-10; Not Available [facility] 3 05:11:50 Actinic keratosi s 776424815 Completed 201511/01/2018 Problem Code: L57.0; Problem Code Type: ICD-10; MD [address], [place], [address] , [facility] 17:23:42 Basal cell carcinom a of face 666996081 Completed 200303/25/2023 Problem Code: 173.31; Problem Code Type: ICD-9; Not Available [facility] 3 05:11:50 Osteopor osis 27919937 Completed 201103/25/2023 Not Available [facility] 3 05:11:50 Pain in left lower limb 513152223 Completed 201510/28/2016 Problem Code: M79.605; Problem Code Type: ICD-10; Not Available [facility] 3 05:11:51 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 Procedures Surgical History None recorded. Imaging Results Imaging Date Name Status LastModified by Organiz ation Details LastModified Time 02/17/2024 MAMMO, screening, bilateral completed [email or web address] [facility] (Radiology) [address] [facility] , [place], [address], 02/17/2024 14:09:04 12/26/2020 bone density completed Information not available 03/14/2024 03:49:02 02/03/2023 bone density completed Information not available 03/14/2024 03:49:03 12/26/2020 MAMMO, screening completed Information not available 03/14/2024 03:49:04 02/03/2023 MAMMO, screening completed Information not available 03/14/2024 03:49:05 11/11/2018 MAMMO, screening completed Information not available 03/14/2024 03:49:06 11/11/2018 imaging/diagno stic result completed Information not available 03/14/2024 03:49:22 02/23/2023 XR, foot completed [email or web address] [facility] [address], [place], [address], 04/20/2024 14:58:28 02/23/2023 imaging/diagno stic result completed Information not available 03/14/2024 03:49:25 Procedure Notes None recorded. Medical Equipment None Reported. [...] Updated DateTime 4 168.91 cm 17.8 kg/m2 46949.3 5 g 97.5 [degF] 16 /min 62 /min 118 mm[Hg] 78 mm[Hg] EMILY CRUZ LPN [facility] 10:36:34 Date Recorded Body height Body mass index (BMI) Body weight Body temperature Oxygen saturation Oxygen saturation in Arterial blood by Pulse oximetry Heart rate Respiratory rate Systolic blood pressure Diastolic blood pressure Provider Name and Address Organization Details Last Updated DateTime 4 168.91 cm 17.8 kg/m2 17003.3 5 g 98.2 [degF] 97 % 97 % 60 /min 16 /min 149 mm[Hg] 78 mm[Hg] Palmira Ybarra [facility] 11:23:35 Social History Question Answer Notes LastModified by Organizat ion Details LastModified Time Tobacco Smoking Status Never Smoker EMILY CRUZ LPN [facility] 01/25/2024 10:47:15 Would You Say That, In [...] Details Recorded Time Pneumococcal conjugate PCV20, polysaccharide AOM305 conjugate, adjuvant, PF 01/25/2024 completed SUE SIMMONS MD [address], [place], [address], [facility] 01/25/2024 11:16:28 Td (adult), 2 Lf tetanus toxoid, preservative free, adsorbed 01/13/2022 completed Not Available [facility] 05/08/2023 06:14:51 Tdap 03/30/2012 completed Not Available [facility] 06:14:51 zoster live 04/19/2012 completed Not Available [facility] 05/08/2023 06:14:52 Influenza, split virus, quadrivalent, PF 04/25/2015 completed Not Available [facility] 05/08/2023 06:14:52 Pneumococcal Conjugate, unspecified formulation 09/03/2014 completed Not Available [facility] 05/08/2023 06:14:52 COVID-19, mRNA, LNP-S, PF, 100 mcg/0.5mL dose or 50 mcg/0.25mL dose 08/17/2020 completed Not Available [facility] 05/08/2023 06:14:52 COVID-19, mRNA, LNP-S, PF, 100 mcg/0.5mL dose or 50 mcg/0.25mL dose 09/14/2020 completed Not Available [facility] 05/08/2023 06:14:52 COVID-19, mRNA, LNP-S, PF, 100 mcg/0.5mL dose or 50 mcg/0.25mL dose 04/22/2021 completed Not Available [facility] 05/08/2023 06:14:52 SARS-COV-2 (COVID-19) vaccine, UNSPECIFIED 02/02/2022 completed Not Available [facility] 05/08/2023 06:14:52 SARS-COV-2 (COVID-19) vaccine, UNSPECIFIED 05/20/2022 completed Not Available [facility] 05/08/2023 06:14:52 COVID-19, mRNA, LNP-S, bivalent, PF, 30 mcg/0.3 mL dose 11/19/2022 completed Not Available [facility] 05/08/20 06:14:52 pneumococcal polysaccharide PPV23 03/30/2012 completed Not Available [facility] 2022 06:14:52 influenza, unspecified formulation 04/22/2017 completed Not Available [facility] 05/08/2023 06:14:53 influenza, unspecified formulation 04/23/2016 completed Not Available [facility] 05/08/2023 06:14:53 influenza, unspecified formulation 05/11/2020 completed Not Available [facility] 05/08/2023 06:14:53 influenza, unspecified formulation 05/23/2019 completed Not Available [facility] 05/08/2023 06:14:53 zoster recombinant 06/28/2020 completed ML AHRDWICK, [facility]. 01/25/2024 08:59:58 zoster recombinant 10/27/2020 completed ML [place], [facility]. 01/25/2024 09:00:11 Past Encounters Encounter ID Performer Location Encounter Start Date Encounter Closed Date Diagnosis/Indication Diagnosis SNOMED-CT Code Diagnosis ICD10 Code [id number] Jaida Childs RN [facility] [address] [place] [address] 05/28/2023 12:17:27 05/28/2023 13:12:02 Screening for malignant neoplasm of colon 389330651 Z12.11 [id number] SUE SIMMONS MD [facility] [address] [place] [address] 01/25/2024 10:23:54 01/25/2024 11:06:21 Active or passive immunization 838778116 Z23 Screening mammography 24 292427 Z12.31 Adult heal th examination 449223915 Z00.00 Screening for malignant neoplasm of colon 529145692 Z12.11 Senile osteoporosis 1804 0001 M81.0 [id number] KRYSTEN VILLATORO RN [facility] [address] [place] [address] 03/30/2024 09:17:41 03/30/2024 10:06:36 [id number] KONSTANTIN KANG PA-C [address] [address] 04/21/2024 09:27:00 04/21/2024 13:04:45 Diarrhea 87352771 R19.7 Health Concerns Section Related Observation LastModified by Organization Detai ls LastModified Time None Recorded Concern Status LastModified by Organization Details LastModified Time None Recorded Advance Directives Directive N: None on record Payers Encounter Date Sequence Insurance Name Policy Number Policy Escudero Covered Member ID Escudero Member ID Guarantor Name 05/28/2023 [address] [facility] [id number] Jessie Duran [id number] Jessie Duran 01/25/2024 1 [place] [employer] Jessie Duran [id number] Jessie Duran 01/25/2024 2 [facility] ANYWHERE - MEDICARE ADVANTAGE (MEDICARE REPLACEMENT PPO) [id number] Jessie Duran [id number] Jessie Florence Duran 03/30/2024 1 MEDICARE [place]: [facility] SERVICES Jessie Florence Duran [id number] Jessie Florence Duran 03/30/2024 2 [facility] ANYWHERE - MEDICARE ADVANTAGE (MEDICARE REPLACEMENT PPO) [id number] Jessie Florence Duran [id number] Jessie Florence Duran 04/21/2024 1 MEDICARE [place]: [facility] SERVICES Jessie Florence Duran [id number] Jessie Florence Duran 04/21/2024 2 [facility] (MEDICARE REPLACEMENT PPO) [id number] Jessie Florence Duran [id number] Jessie Florence Duran Notes Date Note Type Note Provider [...] regularly. Lots of chores in the gardens. SUE SIMMONS MD [address], [place], [address], [facility]. 01/25/2024 11:16:51 04/21/2024 text/html HPI Notes: Venus reyes is [...] symptoms KONSTANTIN KANG PA-C [address], [place], [address], [facility]. 04/22/2024 18:16:05 OBGyn Episode No OBEpisode recorded.
== END 2024-04-22 22:50 | disposition home or self-care (01) ==
LOC: LBN 22:49
PROVIDERS: PCP Family Medicine; Visit Provider Physician Assistant Medical
DX: R19.7 Diarrhea, unspecified (principal)
CPT/HCPCS: 87493; 87505; 87177

== ENCOUNTER 2024-05-03 10:07 | Outpatient (REF) | payer MEDICARE, SELFPAY ==
--- OUTSIDE RECORDS SUMMARY | 2024-05-03 10:09 | XMS_ITS | Encounter Summary ---
[place] [address] Care Team Providers Care Lathing Supervisor Name Role Phone Sue Simmons MD Primary Care Provider [phone] Reason for Visit * Reason Comments Annual Exam Encounter Details Date Type Department Care Team (Late st Contact Info) Description 10/12/2023 10:15 AM EDT Office Visit Dermatology at [address] [phone] Renan Ba MD [address] [facility], [place] [address] History of basal cell carcinoma Social History [...] 2003 3. History of high school/schooling in [employer] [place] 4. History of BCCA left lateral neck December 2016 Jessie follows up for repeat skin checkup. She has been doing well. She spent a lot of time out ofdoors taking care of her horses and maintaining the property gardening shopping etc. she has now lived for 20 years in [place]. Physical examination reveals a pleasant 78-year-old woman [...] 10:15 AM EDT Office Visit Dermatology at [place] [address] [place] [address] Renan Ba MD [address] [facility], ILIA A DERMATOLOGY [place], [place] [address] documented as of this encounter Visit Diagnoses Diagnosis History of basal cell carcinoma Personal history of other malignant neoplasm of skin documented in this encounter Care Teams Lathing Supervisor Relationship Specialty Start Date End Date Sue Simmons MD [address] [place] [address] [facility] [address] [place] [address] PCP - General Family Medicine 01/13/19 documented as of this encounter
--- OUTSIDE RECORDS SUMMARY | 2024-05-03 10:09 | XMS_ITS | Encounter Summary ---
Author Organization [facility] Address [address] [place] [address] Care Team Providers Care Press Pipe Inspector Name Role Phone Unavailable Primary Care Provider Unavailabl e Encounter Details Date Type Department Care Team (Late st Contact Info) Description 05/07/2004 Results Only [facility] Medicine - [address] [phone] Tierra Taylor MD Social History Tobacco Use [...] when reading/interpreti ng unformatted reports. Name: ? JSESIE TAY ? Accession #: ? [id number] : ? 1945 (Age: 58) ??F ?Collect [...] Taylor MD PATHOLOGY ORDERABLES JUJU ROBISON [address] [place] [address] documented in this encounter Visit Diagnoses Not on filedocumented in this encounter
--- OUTSIDE RECORDS SUMMARY | 2024-05-03 10:09 | XMS_ITS | Continuity of Care Document ---
Author Organization [place] - [facility] FullContact [facility], [facility] Address [address] [place] [address] Care Team Providers Care Sap Bw Bi Developer Name Role Phone KANDICE FALCON Government Contracts Manager Assessment No assessment recorded. Plan of Treatment Reminders Order Date Submit Date Provider Last Modified By Organization Details Last Modified Time Details Appointments Nurse Visit 20 2023 01:40P M [facility] Nursing Staff Not available Not available Not available Annual Wellness Exam 40 2024 09:00A M Sue Oneill Not available Not available Not available Lab O&P (ova & parasite s), stool 2023 024 [facility] ([facility] Direct), [address] [place] [address] [place], [address], 04/28/2024 16:29:36 culture, stool 2023 024 [facility] ([facility]), [address] [place] [address] [place], [address], 04/25/2024 08:38:37 C diff toxin DNA, stool 2023 024 [facility] ([facility]), [address] [place] [address] [place], [address], 04/22/2024 12:06:29 giardia + cryptosp oridium Ag, stool 2023 024 [facility] (Outpatient Lab), [address] [place], [address], 04/23/2024 13:49:57 CBC w/ auto diff 2023 [facility] ([facility]), [address] [place] [address] [place], [address], 04/21/2024 17:56:16 CMP, serum or plasma 2023 [facility] ([facility]), [address] [place] [address] [place], [address], 04/21/2024 17:56:18 C-reacti ve protein, quantita tive, serum or plasma 2023 [facility] ([facility]), [address] [place] [address] , [place], [address], 04/21/2024 18:00:55 Referral None recorded . Procedures None recorded . Surgeries None recorded . Imaging None recorded . Medication Orders None recorded . Patient TargetsNo targets recorded. Patient Instructions Encounter Date Encounter Id Patient Instructions Last Modified By Organization Details Last Modified Time 04/21/2024 [id number] 1. Blood work obtained today will likely have results back before we close. When they return I will call you to review findings. 2. You have been given materials and instructions on how to obtain stool studies. Please remember that the study for crypto and Giardia needs to go to [facility] lab. All of the other stool studies can go to [facility]. 3. 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 24677787128 9107 Active [address], [place] [address] , [facility] 4 17:25:59 Hearing loss 09473653 Active 2015 hearing aides MD [address], [place] [address] , [facility] 4 11:13:29 Adult health examinat ion Active [address], [facility] [address] , [facility] 4 17:24:00 Screenin g mammogra phy Completed 201801/24/2024 Problem Code: Z12.31; Problem Code Type: ICD-10; MD [address], [facility] [address] , [facility] 4 17:25:15 Actinic keratosi s 465989883 Active [address], [facility] [address] , [facility] 17:23:42 Abnormal weight loss 952953915 Completed 201812/08/2018 Problem Code: R63.4; Problem Code Type: ICD-10; Not Available [facility] 3 05:11:48 Vitamin D deficien cy 05933732 Active [address], [place] [address] , [facility] 17:26:15 Vitamin B deficien cy 18489729 Active 2018 B12 312 [address], [facility] [address] , [facility] 17:28:35 Elevated blood-pr essure reading without diagnosi s of hyperten sabino 000612077 Completed 202001/24/2024 01/14/20 22 - Comments only - Sue Oneill MD - BP excellen t in the office today, and has been okay at home, no need for medicaio ns at this time. Continue to monitor, continue to avoid extra salt. Problem Code: R03.0; Problem Code Type: ICD-10; MD [address], [place], [address] , [facility] 4 17:24:35 Pain of toe of right foot 11621547997 9101 Active [address], [facility] [address] , [facility] 4 17:25:04 Screenin g for malignan t neoplasm of colon Completed 202201/24/2024 Problem Code: Z12.11; Problem Code Type: ICD-10; MD [address], [facility] [address] [place] [address] 4 17:25:13 Carpal tunnel syndrome 18405800 Completed 200710/28/2016 Problem Code: G56.00; Problem Code Type: ICD-10; Not Available [facility] 3 05:11:49 Benign neoplasm of colon 20779933 Completed 201010/28/2016 Problem Code: D12.6; Problem Code Type: ICD-10; Not Available [facility] 3 05:11:49 Screenin g for disorder Completed 201503/25/2023 Problem Code: Z13.9; Problem Code Type: ICD-10; Not Available [facility] 3 05:11:50 Actinic keratosi s Completed 201511/01/2018 Problem Code: L57.0; Problem Code Type: ICD-10; [facility] [address] [place] [address] 4 17:23:42 Basal cell carcinom a of face 374581874 Completed 200303/25/2023 Problem Code: 173.31; Problem Code Type: ICD-9; Not Available [facility] 3 05:11:50 Osteopor osis 97742578 Completed 201103/25/2023 Not Available [facility] 3 05:11:50 Pain in left lower limb 240740962 Completed 201510/28/2016 Problem Code: M79.605; Problem Code Type: ICD-10; Not Available [facility] 3 05:11:51 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 Medical Equipment [...] Updated DateTime 4 168.91 cm 17.8 kg/m2 62565.3 5 g 98.2 [degF] 97 % 97 % 60 /min 16 /min 149 mm[Hg] 78 mm[Hg] Palmira Ybarra [facility] 4 11:23:35 Social History Question Answer Notes LastModified by Organizat ion Details LastModified Time Tobacco Smoking Status Never Smoker ML ROBERTS, [facility] 01/25/2024 10:47:15 Would You Say That, In [...] Details Recorded Time Pneumococcal conjugate PCV20, polysaccharide EQU652 conjugate, adjuvant, PF 01/25/2024 completed SUE ONEILL MD [employer] [address], [place], [address], [facility] 01/25/2024 11:16:28 Td (adult), 2 Lf tetanus toxoid, preservative free, adsorbed 01/13/2022 completed Not Available [facility] 05/08/2023 06:14:51 Tdap 03/30/2012 completed Not Available [facility] 06:14:51 zoster live 04/19/2012 completed Not Available [facility] 05/08/2023 06:14:52 Influenza, split virus, quadrivalent, PF 04/25/2015 completed Not Available [facility] 05/08/2023 06:14:52 Pneumococcal Conjugate, unspecified formulation 09/03/2014 completed Not Available [facility] 05/08/2023 06:14:52 COVID-19, mRNA, LNP-S, PF, 100 mcg/0.5mL dose or 50 mcg/0.25mL dose 08/17/2020 completed Not Available [facility] 05/08/2023 06:14:52 COVID-19, mRNA, LNP-S, PF, 100 mcg/0.5mL dose or 50 mcg/0.25mL dose 09/14/2020 completed Not Available [facility] 05/08/2023 06:14:52 COVID-19, mRNA, LNP-S, PF, 100 mcg/0.5mL dose or 50 mcg/0.25mL dose 04/22/2021 completed Not Available [facility] 05/08/2023 06:14:52 SARS-COV-2 (COVID-19) vaccine, UNSPECIFIED 02/02/2022 completed Not Available [facility] 05/08/2023 06:14:52 SARS-COV-2 (COVID-19) vaccine, UNSPECIFIED 05/20/2022 completed Not Available [facility] 05/08/2023 06:14:52 COVID-19, mRNA, LNP-S, bivalent, PF, 30 mcg/0.3 mL dose 11/19/2022 completed Not Available [facility] 05/08/20 06:14:52 pneumococcal polysaccharide PPV23 03/30/2012 completed Not Available [facility] 2022 06:14:52 influenza, unspecified formulation 04/22/2017 completed Not Available [facility] 05/08/2023 06:14:53 influenza, unspecified formulation 04/23/2016 completed Not Available [facility] 05/08/2023 06:14:53 influenza, unspecified formulation 05/11/2020 completed Not Available [facility] 05/08/2023 06:14:53 influenza, unspecified formulation 05/23/2019 completed Not Available [facility] 05/08/2023 06:14:53 zoster recombinant 06/28/2020 completed ML [place] - [facility]. 01/25/2024 08:59:58 zoster recombinant 10/27/2020 completed ML [place] - [facility]. 01/25/2024 09:00:11 Past Encounters Encounter ID Performer Location Encounter Start Date Encounter Closed Date Diagnosis/Indication Diagnosis SNOMED-CT Code Diagnosis ICD10 Code [id number] KRYSTEN VILLATORO RN [facility] [address] [place] [address] 03/30/2024 09:17:41 03/30/2024 10:06:[id number] [place] [address] 04/21/2024 09:27:00 04/21/2024 13:04:45 Diarrhea 78245085 R19.7 Health Concerns Section Related Observation LastModified by Organization Detai ls LastModified Time None Recorded Concern Status LastModified by Organization Details LastModified Time None Recorded Payers Encounter Date Sequence Insurance Name Policy Number Policy Escudero Covered Member ID Escudero Member ID Guarantor Name 04/21/2024 1 [place] [employer] Jessie Duran [id number] Jessie Duran 04/21/2024 1 [facility] ANYWHERE - MEDICARE ADVANTAGE (MEDICARE REPLACEMENT PPO) [id number] Jessie Duran [id number] Jessie Duran Notes Date Note Type Note [...] No urinary complaints. No other ill symptoms [address], [place], [address], [facility]. 04/22/2024 18:16:05 OBGyn Episode No OBEpisode recorded.
--- OUTSIDE RECORDS SUMMARY | 2024-05-03 10:09 | XMS_ITS | Encounter Summary ---
[place] [address] Care Team Providers Care Paleologist Name Role Phone Sue Simmons MD Primary Care Provider [phone] Encounter Details Date Type Department Care Team [...] 10:15 AM EDT Office Visit Dermatology at [place] [address] [place] [address] Renan Ba MD [address] [facility] [facility] [address], [place] [address] documented as of this encounter Visit Diagnoses Not on filedocumented in this encounter Care Teams Paleologist Relationship Specialty Start Date End Date Sue Simmons MD [facility] [address] [place] [address] PCP - General Family Medicine 01/13/19 documented as of this encounter
--- OUTSIDE RECORDS SUMMARY | 2024-05-03 10:09 | XMS_ITS | Encounter Summary ---
[place] [address] Care Team Providers Care Ops Analyst Name Role Phone Sue Simmons MD Primary Care Provider [phone] Encounter Details Date Type Department Care Team [...] 10:15 AM EDT Office Visit Dermatology at [place] [address] [place] [address] Renan Ba MD [address] [facility] [address], [place] [address] documented as of this encounter Visit Diagnoses Not on filedocumented in this encounter Care Teams Ops Analyst Relationship Specialty Start Date End Date Sue Simmons MD [facility] [address] [place] [address] PCP - General Family Medicine 01/13/19 documented as of this encounter
--- OUTSIDE RECORDS SUMMARY | 2024-05-03 10:09 | XMS_ITS | Clinical Summary ---
Author Organization [facility] Address [address] [place] [address] Care Team Providers Care Director Of Instruction Name Role Phone Unknown, Provider Primary Care Provider Unava ilable Encounters Date Type Department Care Team Description 04/22/2024 Lab Requisition [facility] Pathology & Laboratory Medicine - [facility] [address] [place] [address] Outr Resulting Lab, Provider from Last 3 [...] Salmonella PCR Negative Negative 04/22/2024 22:15 EDT [facility] Shigella/Enteroin vasive E. coli Negative Negative 04/22/2024 22:15 EDT [facility] HN LAB CAMPYLOBACTER PCR Negative Negative 04/22/2024 22:15 EDT [facility] Shiga Toxin PCR Negative Negative 22:15 EDT [facility] Feces SPECIMEN FROM RECTUM / Unknown 04/22/2024 9:00 EDT 04/22/2024 16:19 EDT Provider Outr Resulting Lab MICROBIOLOGY - GENERAL ORDERABLES [facility] [address] [place] [address] from Last 3 Months Care Teams Director Of Instruction Relationship Specialty Start Date End Date Unknown, Provider, PCP - General 01/15/11
--- OUTSIDE RECORDS SUMMARY | 2024-05-03 10:09 | XMS_ITS | Encounter Summary ---
Author Organization [facility] Address [address] [place] [address] Care Team Providers Care Contact Centre Supervisor Name Role Phone Unavailable Primary Care Provider Unavailabl e Encounter Details Date Type Department Care Team (Late st Contact Info) Description 11/17/2007 Results Only [facility] [address] [place] [address] Corey Taylor MD [facility] [place], [place] [id number] Social History Tobacco Use Types Packs/Day Years [...] ? JESSIE TAY ? Accession #: ? [id number] ? : ? 1945 (Age: 62) ??F [...] specimen is entirely submitted as (C). ??(Billy Vigil)/[facility] End of Report JUJU ROBISON 11/17/2007 11/18/2007 10: 21 EDT Corey Taylor MD PATHOLOGY ORDERABLES Performing Organization Address City/State/[facility] Co de Phone Number JUJU ROBISON [address] [place] [address] documented in this encounter Visit Diagnoses Not on filedocumented in this encounter
--- OUTSIDE RECORDS SUMMARY | 2024-05-03 10:09 | XMS_ITS | Encounter Summary ---
[place] [address] Care Team Providers Care Bucket Chucker Name Role Phone Sue Simmons MD Primary Care Provider [phone] Reason for Visit * Reason Comments Skin Check Encounter Details Date Type Department Care Team (Late st Contact Info) Description 09/30/2021 4:00 PM EDT Office Visit Dermatology at [address] [place] [address] Renan Ba MD [address] [facility], [place] [address] History of basal cell carcinoma; [place] (actinic [...] 10:15 AM EDT Office Visit Dermatology at [place] [address] [facility] [place] [address] Renan Ba MD [address] [facility], [place] [address] documented as of this encounter Visit Diagnoses Diagnosis History of basal cell carcinoma Personal history of other malignant neoplasm of skin AK (actinic keratosis) Actinic keratosis documented in this encounter Care Teams Bucket Chucker Relationship Specialty Start Date End Date Sue Simmons MD [address] [place] [address] PCP - General Family Medicine 01/13/19 documented as of this encounter
--- OUTSIDE RECORDS SUMMARY | 2024-05-03 10:09 | XMS_ITS | Encounter Summary ---
[place] [address] Care Team Providers Care Nut Grader Name Role Phone Sue Simmons MD Primary Care Provider [phone] Reason for Visit * Reason Comments Skin Check Annual Exam Encounter Details Date Type Department Care Team (Late st Contact Info) Description 10/02/2022 10:15 AM EDT Office Visit Dermatology at [address] [address] Renan Ba MD [address] [facility], [place] [address] History of basal cell carcinoma; [place] (actinic [...] 10:15 AM EDT Office Visit Dermatology at [place] [address] [facility] [place] [address] Renan Ba MD [address] [facility], [place] [address] documented as of this encounter Visit Diagnoses Diagnosis History of basal cell carcinoma Personal history of other malignant neoplasm of skin AK (actinic keratosis) Actinic keratosis documented in this encounter Care Teams Nut Grader Relationship Specialty Start Date End Date Sue Simomns MD [address] [place] [address] [facility] 1 [place] [address] PCP - General Family Medicine 01/13/19 documented as of this encounter
--- OUTSIDE RECORDS SUMMARY | 2024-05-03 10:09 | XMS_ITS | Encounter Summary ---
Author Organization [facility] Address [address] [place] [address] Care Team Providers Care Joint Cleaning Machine Operator Name Role Phone Unavailable Primary Care Provider Unavailabl e Encounter Details Date Type Department Care Team (Late st Contact Info) Description 09/24/2007 Results Only [facility] Medicine - [address] [phone] Tierra Taylor MD Social History Tobacco Use [...] sufficient. [facility] Report Status Final [id number] [facility] 09/24/2007 8:04 EDT 10/05/2007 8:04 EDT Tierra Taylor MD MICROBIOLOGY - GENER AL ORDERABLES [facility] [address] [place] [address] * CYTOPATHOLOGY (09/24/2007 0:00 EDT) Pathology Report: CYTOPATHOLOGY REPORT Reports generated via electronic interface contain original data; however they are lacking the format of the original report. Caution should be taken when reading/interpreti ng unformatted reports. Name: ? JESSIE TAY ? Accession #: ? [id number] : ? 1945 (Age: 62) ??F ?Collect Date: ? 09/24/2007 Location: ? [facility] ? Receive Date: ? 09/27/2007 Provider: ?TIERRA TAYLOR MD Copy to: ? Specimen/Source: ?ThinPrep Pap Test, Endocervix, processed on [employer]itch ThinPrep Imaging System, with manual evaluation Last [...] Taylor MD PATHOLOGY ORDERABLES [facility] [address] [place] [address] documented in this encounter Visit Diagnoses Not on filedocumented in this encounter
--- OUTSIDE RECORDS SUMMARY | 2024-05-03 10:09 | XMS_ITS | Encounter Summary ---
Author Organization [facility] Address [address] [place] [address] Care Team Providers Care Woodworking Machine Feeder Name Role Phone Unknown, Provider Primary Care Provider Unava ilable Encounter Details Date Type Department Care Team (Late st Contact Info) Description 03/28/2011 Results Only [facility] Family Medicine - [address] [phone] Tierra Taylor MD Social History Tobacco Use [...] ? JESSIE TAY ? Accession #: ? [id number] ? : ? 1945 (Age: 65) ??F [...] and electronically signed by: ? Kyra Goldsmith, [place](ASCP) ? Report ??Date: 04/03/2011 12:55 HPV with [...] 03/28/2011 03/31/2011 Tierra Taylor MD PATHOLOGY ORDERABLES Performing Organization Address City/State/[facility] Co de Phone Number [facility] [address] [place] [address] documented in this encounter Visit Diagnoses Not on filedocumented in this encounter Care Teams Woodworking Machine Feeder Relationship Specialty Start Date End Date Unknown, Provider, PCP - General 01/15/11 documented as of this encounter
--- OUTSIDE RECORDS SUMMARY | 2024-05-03 10:09 | XMS_ITS | Encounter Summary ---
[place] [address] Care Team Providers Care Candy Puller Name Role Phone Sue Simmons MD Primary Care Provider [phone] Encounter Details Date Type Department Care Team (Late st Contact Info) Description 01/16/2020 10:15 AM EDT Office Visit Dermatology at [address] [place] [phone] Renan Ba MD [address], [place] [address] History of basal cell carcinoma Social History [...] 10:15 AM EDT Office Visit Dermatology at [place] [address] [place] [address] Renan Ba MD [address], [place] [address] documented as of this encounter Visit Diagnoses Diagnosis History of basal cell carcinoma Personal history of other malignant neoplasm of skin documented in this encounter Care Teams Candy Puller Relationship Specialty Start Date End Date Sue Simmons MD [address] [place] [address] [address] [place] [address] PCP - General Family Medicine 01/13/19 documented as of this encounter
--- OUTSIDE RECORDS SUMMARY | 2024-05-03 10:09 | XMS_ITS | Continuity of Care Document ---
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 Nursing Staff Not available Not available [...] foot No observ ation record ed. [email or web address] [facility] [address], [place], [address], 04/20/2024 14:58:28 03/14/20 24 02/23/2023 imagi ng/di agnos tic resul t No observ ation record ed. Not Available 03/14 03:49:25 Result Notes None recorded. 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 32159624821 9107 Active [address], [facility] [address] , [facility] 4 17:25:59 Hearing loss 32811551 Active 2015 hearing aides MD [address], [facility] [address] , [facility] 4 11:13:29 Adult health examinat ion Active [address], [facility] [address] , [facility] 4 17:24:00 Screenin g mammogra phy Completed 201801/24/2024 Problem Code: Z12.31; Problem Code Type: ICD-10; MD [address], [place], [address] , [facility] 4 17:25:15 Actinic keratosi s 647929343 Active [address], [place], [address] , [facility] 4 17:23:42 Abnormal weight loss 743306465 Completed 201812/08/2018 Problem Code: R63.4; Problem Code Type: ICD-10; Not Available [facility] 3 05:11:48 Vitamin D deficien cy 46033603 Active [address], [place], [address] , [facility] 4 17:26:15 Vitamin B deficien cy 90182650 Active 2018 B12 312 [address], [facility] [address] , [facility] 4 17:28:35 Elevated blood-pr essure reading without diagnosi s of hyperten sabino 718563247 Completed 202001/24/2024 01/14/20 22 - Comments only - Sue Oneill MD - BP excellen t in the office today, and has been okay at home, no need for medicaio ns at this time. Continue to monitor, continue to avoid extra salt. Problem Code: R03.0; Problem Code Type: ICD-10; MD [address], [facility] [address] , [facility] 4 17:24:35 Pain of toe of right foot 92213942965 9101 Active [address], [place], [place], [address] [place] [address] , [facility] 4 17:25:04 Screenin g for malignan t neoplasm of colon Completed 202201/24/2024 Problem Code: Z12.11; Problem Code Type: ICD-10; MD [address], [place], [address] , [facility] 4 17:25:13 Carpal tunnel syndrome 77480433 Completed 200710/28/2016 Problem Code: G56.00; Problem Code Type: ICD-10; Not Available [facility] 3 05:11:49 Benign neoplasm of colon 27424127 Completed 201010/28/2016 Problem Code: D12.6; Problem Code Type: ICD-10; Not Available [facility] 3 05:11:49 Screenin g for disorder Completed 201503/25/2023 Problem Code: Z13.9; Problem Code Type: ICD-10; Not Available [facility] 3 05:11:50 Actinic keratosi s Completed 201511/01/2018 Problem Code: L57.0; Problem Code Type: ICD-10; MD [address], [place], [address] , [facility] 4 17:23:42 Basal cell carcinom a of face 775464189 Completed 200303/25/2023 Problem Code: 173.31; Problem Code Type: ICD-9; Not Available [facility] 3 05:11:50 Osteopor osis 02618857 Completed 201103/25/2023 Not Available [facility] 3 05:11:50 Pain in left lower limb 335273962 Completed 201510/28/2016 Problem Code: M79.605; Problem Code Type: ICD-10; Not Available [facility] 3 05:11:51 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 Medical [...] Smoker EMILY CRUZ LPN null, [place] - [facility]. 01/25/2024 10:47:15 Would You Say That, In [...] Details Recorded Time Pneumococcal conjugate PCV20, polysaccharide DMX321 conjugate, adjuvant, PF 01/25/2024 completed SUE ONEILL MD [address], [place], [address], [facility] 01/25/2024 11:16:28 Td (adult), 2 Lf tetanus toxoid, preservative free, adsorbed 01/13/2022 completed Not Available [facility] 05/08/2023 06:14:51 Tdap 03/30/2012 completed Not Available [facility] 06:14:51 zoster live 04/19/2012 completed Not Available [facility] 05/08/2023 06:14:52 Influenza, split virus, quadrivalent, PF 04/25/2015 completed Not Available [facility] 05/08/2023 06:14:52 Pneumococcal Conjugate, unspecified formulation 09/03/2014 completed Not Available [facility] 05/08/2023 06:14:52 COVID-19, mRNA, LNP-S, PF, 100 mcg/0.5mL dose or 50 mcg/0.25mL dose 08/17/2020 completed Not Available [facility] 05/08/2023 06:14:52 COVID-19, mRNA, LNP-S, PF, 100 mcg/0.5mL dose or 50 mcg/0.25mL dose 09/14/2020 completed Not Available [facility] 05/08/2023 06:14:52 COVID-19, mRNA, LNP-S, PF, 100 mcg/0.5mL dose or 50 mcg/0.25mL dose 04/22/2021 completed Not Available [facility] 05/08/2023 06:14:52 SARS-COV-2 (COVID-19) vaccine, UNSPECIFIED 02/02/2022 completed Not Available [facility] 05/08/2023 06:14:52 SARS-COV-2 (COVID-19) vaccine, UNSPECIFIED 05/20/2022 completed Not Available [facility] 05/08/2023 06:14:52 COVID-19, mRNA, LNP-S, bivalent, PF, 30 mcg/0.3 mL dose 11/19/2022 completed Not Available [facility] 05/08/20 06:14:52 pneumococcal polysaccharide PPV23 03/30/2012 completed Not Available [facility] 2022 06:14:52 influenza, unspecified formulation 04/22/2017 completed Not Available [facility] 05/08/2023 06:14:53 influenza, unspecified formulation 04/23/2016 completed Not Available [facility] 05/08/2023 06:14:53 influenza, unspecified formulation 05/11/2020 completed Not Available [facility] 05/08/2023 06:14:53 influenza, unspecified formulation 05/23/2019 completed Not Available [facility] 05/08/2023 06:14:53 zoster recombinant 06/28/2020 completed ML HARDWICK, [facility]. 01/25/2024 08:59:58 zoster recombinant 10/27/2020 completed ML HARDWICK, [facility]. 01/25/2024 09:00:11 Past Encounters Encounter ID Performer Location Encounter Start Date Encounter Closed Date Diagnosis/Indication Diagnosis SNOMED-CT Code Diagnosis ICD10 Code [id number] KRYSTEN VILLATORO RN [place] [address] [place] [address] 03/30/2024 09:17:41 03/30/2024 10:06:36 Health Concerns Section Related Observation LastModified by Organization Detai ls LastModified Time None Recorded Concern Status LastModified by Organization Details LastModified Time None Recorded Payers Encounter Date Sequence Insurance Name Policy Number Policy Escudero Covered Member ID Escudero Member ID Guarantor Name 03/30/2024 1 [place] [employer] Jessie Duran [id number] Jessie Duran 03/30/2024 1 [facility] - MEDICARE ADVANTAGE (MEDICARE REPLACEMENT PPO) [id number] Jessie Duran [id number] Jessie Duran OBGyn Episode No OBEpisode recorded.
--- OUTSIDE RECORDS SUMMARY | 2024-05-03 10:09 | XMS_ITS | Encounter Summary ---
[place] [address] Care Team Providers Care Flavor Maker Name Role Phone Sue Simmons MD Primary Care Provider [phone] Encounter Details Date Type Department Care Team (Late st Contact Info) Description 08/30/2020 Telephone Ophthalmology at [address] [address] Daja Israel Social History Tobacco [...] 10:15 AM EDT Office Visit Dermatology at [address] [place] [phone] Renan Ba MD [address], [place] [address] documented as of this encounter Visit Diagnoses Not on filedocumented in this encounter Care Teams Flavor Maker Relationship Specialty Start Date End Date Sue Simmons MD [facility] [address] [place] [address] PCP - General Family Medicine 01/13/19 documented as of this encounter
--- OUTSIDE RECORDS SUMMARY | 2024-05-03 10:09 | XMS_ITS | Encounter Summary ---
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 TAY, JESSIE ? Accession #: ? [id number] ? : ? 1945 (Age: 65) ??F [...] MD PATHOLOGY ORDERABLES [facility] [address] [place] [address] documented in this encounter Visit Diagnoses Not on filedocumented in this encounter
--- OUTSIDE RECORDS SUMMARY | 2024-05-03 10:09 | XMS_ITS | Data Portability ---
Author Organization [facility] Address [address] [place] [address] Care Team Providers Care Assignment Desk Editor Name Role Phone KANDICE FALCON Terrazzo Polisher Helper Assessment Encounter Date Assessment Date Assessment LastModified by Organization Details LastModified Time 03/30/2024 03/30/2024 IFOB test negative; documented on order [email or web address] Not available 03/30/2024 09:59:30 Plan of Treatment Reminders Order Date Submit Date Provider Last Modified By Organization Details Last Modified Time Details Appointments Nurse Visit 20 2023 01:40P M [facility] Nursing Staff Not available Not available Not available Annual Wellness Exam 40 2024 09:00A M Sue Simmons Not available Not available Not available Lab fecal occult blood, immunoas say, stool 2022 023 [email or web address] [facility], [address], [place], [address], 05/28/2023 16:10:06 fecal occult blood, immunoas say, stool 2023 024 [facility], [address], [place], [address], 03/30/2024 10:03:56 O&P (ova & parasite s), stool 2023 024 [facility] ([facility]), [facility] [facility] , [place], [address], 04/28/2024 16:29:36 culture, stool 2023 [facility] ([facility]), [address] [place] [address] [place], [address], 04/25/2024 08:38:37 C diff toxin DNA, stool 2023 [facility] ([facility]), [address] [place] [address] [place], [address], 04/22/2024 12:06:29 giardia + cryptosp oridium Ag, stool 2023 [facility] (Outpatient Lab), [address] [facility], [place], [address], 04/23/2024 13:49:57 CBC w/ auto diff 2023 [facility] ([facility]), [address] [place] [address] [place], [address], 04/21/2024 17:56:16 CMP, serum or plasma 2023 [facility] ([facility]), [address] [place] [address] [place], [address], 04/21/2024 17:56:18 C-reacti ve protein, quantita tive, serum or plasma 2023 [facility] ([facility]), [address] [place] [address] [place], [address], 04/21/2024 18:00:55 Referral None recorded . Procedures None recorded . Surgeries None recorded . Imaging MAMMO, screenin g, bilatera l 2023 [facility] (Radiology), [address] [place] [address] [facility] [place], [address], 02/17/2024 14:09:03 Medication Orders None recorded . Patient TargetsNo targets recorded. Patient Instructions Encounter Date Encounter Id Patient Instructions Last Modified By Organization Details Last Modified Time 04/21/2024 [id number] 1. Blood work obtained today will likely have results back before we close. When they return I will call you to review findings. 2. You have been given materials and instructions on how to obtain stool studies. Please remember that the study for crypto and Giardia needs to go to [facility]. All of the other stool studies can go to [facility]. 3. Stool studies will come [...] y, stool iFOB negati ve Not Available [facility] [address], [place], [address], 05/28/2023 12:18:17 03/30/20 24 03/30/2024 fecal occul t blood , immun oassa y, stool ifob negati ve Not Available [facility] [address], [place], [address], 03/30/2024 09:54:01 04/21/20 24 04/21/2024 COMPL ETE BLOOD COUNT W/DIF F WBC 3.88 10_3/ uL 4.4-10 .8 low Not Available [address] [place], [address] 04/21/2024 17:56:16 04/21/20 24 04/21/2024 COMPL ETE BLOOD COUNT W/DIF F RBC 4.25 10_6/ uL 3.93-5 .22 normal Not Available [address] [place], [address] 04/21/2024 17:56:16 04/21/2004/21/2024 COMPL ETE BLOOD COUNT W/DIF F HGB 13.4 g/dL 11.2-1 5.7 normal Not Available [address] [place], [address] 04/21/2024 17:56:16 04/21/2004/21/2024 COMPL ETE BLOOD COUNT W/DIF F HCT 40.7 % 36.0-4 6.0 normal Not Available [address] [place], [address] 04/21/2024 17:56:16 04/21/2004/21/2024 COMPL ETE BLOOD COUNT W/DIF F MCV 96 fL 80-95 high Not Available [address] [place], [address] 04/21/2024 17:56:16 04/21/2004/21/2024 COMPL ETE BLOOD COUNT W/DIF F MCH 31.5 pg 27.0-3 3.0 normal Not Available [address] [place], [address] 04/21/2024 17:56:16 04/21/2004/21/2024 COMPL ETE BLOOD COUNT W/DIF F MCHC 32.9 % 32.0-3 6.0 normal Not Available [address] [place], [address] 04/21/2024 17:56:16 04/21/2004/21/2024 COMPL ETE BLOOD COUNT W/DIF F RDW 12.1 % 11.7-1 4.6 normal Not Available [address] [place], [address] 04/21/2024 17:56:16 04/21/2004/21/2024 COMPL ETE BLOOD COUNT W/DIF F platelet count 295 10_3/ uL 130-40 0 normal Not Available [address] [place], [address] 04/21/2024 17:56:16 04/21/2004/21/2024 COMPL ETE BLOOD COUNT W/DIF F MPV 9.8 fL 8.0-11 .0 normal Not Available [address] [place], [address] 04/21/2024 17:56:16 04/21/2004/21/2024 COMPL ETE BLOOD COUNT W/DIF F neutrophils % 55.6 % Not Available [address] [place], [address] 04/21/2024 17:56:16 04/21/2004/21/2024 COMPL ETE BLOOD COUNT W/DIF F lymphocytes % 33.0 % Not Available [address] [place], [address] 04/21/2024 17:56:16 04/21/2004/21/2024 COMPL ETE BLOOD COUNT W/DIF F monocytes % 9.3 % Not Available [address] [place], [address] 04/21/2024 17:56:16 04/21/2004/21/2024 COMPL ETE BLOOD COUNT W/DIF F eosinophils % 1.3 % Not Available [address] [place], [address] 04/21/2024 17:56:16 04/21/2004/21/2024 COMPL ETE BLOOD COUNT W/DIF F basophils % 0.8 % Not Available [address] [place], [address] 04/21/2024 17:56:16 04/21/2004/21/2024 COMPL ETE BLOOD COUNT W/DIF F immature grans % 0.0 % Not Available [address] [place], [address] 04/21/2024 17:56:16 04/21/2004/21/2024 COMPL ETE BLOOD COUNT W/DIF F nucleated RBC 0.0 % 0.0-0. 3 normal Not Available [address] [place], [address] 04/21/2024 17:56:16 04/21/2004/21/2024 COMPL ETE BLOOD COUNT W/DIF F absolute neutrophil count 2.16 10_3/ uL 1.2-6. 7 normal Not Available [address] [place], [address] 04/21/2024 17:56:16 04/21/2004/21/2024 COMPL ETE BLOOD COUNT W/DIF F absolute lymphocyte count 1.28 10_3/ uL 1.2-3. 4 normal Not Available [address] [place], [address] 04/21/2024 17:56:16 04/21/2004/21/2024 COMPL ETE BLOOD COUNT W/DIF F absolute monocyte count 0.36 10_3/ uL 0.1-0. 8 normal Not Available [address] [place], [address] 04/21/2024 17:56:16 04/21/2004/21/2024 COMPL ETE BLOOD COUNT W/DIF F absolute eosinophil count 0.05 10_3/ uL 0.0-0. 7 normal Not Available [address] [place], [address] 04/21/2024 17:56:16 04/21/2004/21/2024 COMPL ETE BLOOD COUNT W/DIF F absolute basophil count 0.03 10_3/ uL 0.0-0. 2 normal Not Available [address] [place], [address] 04/21/2024 17:56:16 04/21/2004/21/2024 COMPR EHENS TRE METAB OLIC PANEL calcium 9.5 mg/dL 8.5-10 .1 normal Not Available [address] [place], [address] 04/21/2024 17:56:18 04/21/2004/21/2024 COMPR EHENS TRE METAB OLIC PANEL glucose 91 mg/dL 74-106 normal Not Available [address] [place], [address] 04/21/2024 17:56:18 04/21/2004/21/2024 COMPR EHENS TRE METAB OLIC PANEL BUN 23 mg/dL 7-18 high Not Available Ana mathew [address] [place], [address] 04/21/2024 17:56:18 04/21/2004/21/2024 COMPR EHENS TRE METAB OLIC PANEL creatinine 0.8 mg/dL 0.55-1 .02 normal Not Available [address] [place], [address] 04/21/2024 17:56:18 04/21/2004/21/2024 COMPR EHENS TRE METAB [...] young er-ag ed adult s. Not Available [address] [place], [address] 04/21/2024 17:56:18 04/21/2004/21/2024 COMPR EHENS TRE METAB OLIC PANEL total protein 7.0 g/dL 6.4-8. 2 normal Not Available [address] [place], [address] 04/21/2024 17:56:18 04/21/2004/21/2024 COMPR EHENS TRE METAB OLIC PANEL albumin 4.0 g/dL 3.4-5. 0 normal Not Available [address] [place], [address] 04/21/2024 17:56:18 04/21/2004/21/2024 COMPR EHENS TRE METAB OLIC PANEL bilirubin, total 0.82 mg/dL 0.2-1. 0 normal Not Available [address] [place], [address] 04/21/2024 17:56:18 04/21/2004/21/2024 COMPR EHENS TRE METAB OLIC PANEL alk phos 57 U/L 46-116 normal Not Available [address] [place], [address] 04/21/2024 17:56:18 04/21/2004/21/2024 COMPR EHENS TRE METAB OLIC PANEL sodium 143 mmol/ L 136-14 5 normal Not Available [address] [place], [address] 04/21/2024 17:56:18 04/21/2004/21/2024 COMPR EHENS TRE METAB OLIC PANEL potassium 4.2 mmol/ L 3.5-5. 1 normal Not Available [address] [place], [address] 04/21/2024 17:56:18 04/21/2004/21/2024 COMPR EHENS TRE METAB OLIC PANEL chloride 106 mmol/ L 98-107 normal Not Available [address] [place], [address] 04/21/2024 17:56:18 04/21/2004/21/[address] METAB OLIC PANEL CO2 29.8 mmol/ L 21.0-3 2.0 normal Not Available [address] [place], [address] 04/21/2024 17:56:18 04/21/2004/21/2024 COMPR EHENS TRE METAB OLIC PANEL anion gap 7.2 mmol/ L 3-11 normal Not Available [address] [place], [address] 04/21/2024 17:56:18 04/21/2004/21/2024 COMPR EHENS TRE METAB OLIC PANEL AST 20 U/L 15-37 normal Not Available [address] [place], [address] 04/21/2024 17:56:18 04/21/2004/21/2024 COMPR EHENS TRE METAB OLIC PANEL ALT 24 U/L 14-59 normal Not Available Erine [address] [place], [address] 04/21/2024 17:56:18 04/21/2004/21/2024 C-MIQUEL CTIVE PROTE IN C-reactive protein < 0.50 mg/dL <or=0. 5 Not Available [facility] ([facility]) [address] [place] [address] [place], [address], 04/21/2024 17:56:19 04/22/2004/22/2024 C DIFF PCR C [...] mens will be proce ssed. Not Available [address] [place], [address] 04/22/2024 12:06:29 04/22/2004/22/2024 FECAL BACTE RIAL PATHO GENS PCR salmonella PCR Negati ve negati ve Not Available [facility] ([facility]) [address] [place] [address] [place], [address], 04/25/2024 08:26:04 04/22/2004/22/2024 FECAL BACTE RIAL PATHO GENS PCR shigella/ent eroinvasive ecoli Negati ve negati ve Not Available [facility] ([facility]) [address] [place] [address] [place], [address], 04/25/2024 08:26:04 04/22/2004/22/2024 FECAL BACTE RIAL PATHO GENS PCR campylobacte r PCR Negati ve negati ve Not Available [facility] ([facility]) [address] [place] [address] [place], [address], 04/25/2024 08:26:04 04/22/2004/22/2024 FECAL BACTE RIAL PATHO GENS PCR shiga toxin PCR Negati ve negati ve Test perfo rmed or refer red by [facility] [address], [place] [address] Not Available [facility] ([facility]) [address] [place] [address] [place], [address], 04/25/2024 08:26:04 04/22/20 24 04/22/2024 FECAL BACTE RIAL PATHO GENS PCR salmonella PCR Negati ve negati ve Not Available [address] [place], [address] 04/28/2024 16:23:24 04/22/20 24 04/22/2024 FECAL BACTE RIAL PATHO GENS PCR shigella/ent eroinvasive ecoli Negati ve negati ve Not Available [address] [place], [address] 04/28/2024 16:23:24 04/22/20 24 04/22/2024 FECAL BACTE RIAL PATHO GENS PCR campylobacte r PCR Negati ve negati ve Not Available [address] [place], [address] 04/28/2024 16:23:24 04/22/20 24 04/22/2024 FECAL BACTE RIAL PATHO GENS PCR shiga toxin PCR Negati ve negati ve Test perfo rmed or refer red by [facility] [address], [place] [address] Not Available [address] [place], [address] 04/28/2024 16:23:24 04/22/20 24 04/28/2024 OVA AND GRISELDA ITE, FECES ova and parasite, feces SEE BELOW RESUL T: FINAL 04/28 1511 SOURC E: STOOL , STLP OVA AND GRISELDA ITE, MICRO SCOPY , F FINAL No griselda ites seen. Crypt ospor idium , Cyclo spora , and micro spori janette are not readi ly detec rich by this jennifer anderson Singl e negat tre speci men does not rule out griselda itic infec tion. Test Perfo rmed by: [facility] [place] [facility] [address], [place] [address] Lab Direc tor: Tonny Lo nn Ph.D. ; CLIA# [id number] Not Available [facility] ([facility]) [address] [place] [address] [place], [address], 04/28/2024 16:23:24 02/17/20 24 02/17/2024 MAMMO , scree shruthi, bilat eral Patineda t Name: Annita Duran Unit #: [id number] Loc: DI Orderi ng Provid er: Sue Simmons M.D. Accoun t #: [id number] Status : REG CLI Primar [...] error, please notify us immedi helenly at [phone] and return the origin al report to us at the addres s above. Thank- you. [email or web address] [facility] (Radiology) [address] [place] [address] [place], [address], 02/17/2024 14:09:04 03/14/20 24 12/26/2020 bone densi [...] foot No observ ation record ed. [email or web address] [facility] [address], [place], [address], 04/20/2024 14:58:28 03/14/20 24 02/23/2023 imagi ng/di agnos tic resul t No observ ation record ed. Not Available 03/14 03:49:25 Result Notes Documentation Provider Name and Address Organization Details Recorded Time Mammo, Screening, Bilateral : Patient Name: Jessie Duran Unit #: [id number] Loc: DI Ordering Provider: Sue Simmons M.D. 6 Status: [...] By: Norma Rodas M.D. 02/17/24 1345 02/17/24 134 Transcribed By: Norma Rodas 02/17/24 0961 This is privileged, confidential information intended only for the provider named. Any use or distribution by any person other than this provider is strictly prohibited. If you receive this report in error, please notify us immediately at [phone] and return the original report to us at the address above. Thank-you. 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 MD Món[address], [address] 4 11:13:41 Raynaud' s disease 490955085 Active [address], 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 [address] , [facility] 4 17:25:59 Hearing loss 70879878 Active 2015 hearing aides MD Món[address], [place] [address] , [facility] 4 11:13:29 Adult health examinat ion Active [address], [place] [address] , [facility] 4 17:24:00 Screenin g mammogra phy Completed 201801/24/2024 Problem Code: Z12.31; Problem Code Type: ICD-10; MD Mónica [address], [place] [address] , [facility] 4 17:25:15 Actinic keratosi s 556675845 Active [address], [place] [address] , [facility] 4 17:23:42 Abnormal weight loss 990500201 Completed 201812/08/2018 Problem Code: R63.4; Problem Code Type: ICD-10; Not Available [facility] 3 05:11:48 Vitamin D deficien cy 89424286 Active [address], [place] [address] , [facility] 4 17:26:15 Vitamin B deficien cy 46445875 Active 2018 B12 312 [address], [place] [address] , [facility] 4 17:28:35 Elevated blood-pr essure reading without diagnosi s of hyperten gage 447035914 Completed 202001/24/2024 01/14/20 22 - Comments only - Sue Simmons MD - BP excellen t in the office today, and has been okay at home, no need for medicaio ns at this time. Continue to monitor, continue to avoid extra salt. Problem Code: R03.0; Problem Code Type: ICD-10; MD Món[address], [facility] [address] , [facility] 4 17:24:35 Pain of toe of right foot 62319969036 9101 Active [address], [place] [address] , [facility] 4 17:25:04 Screenin g for malignan t neoplasm of colon Completed 202201/24/2024 Problem Code: Z12.11; Problem Code Type: ICD-10; MD Món[address], [facility] [address] , [facility] 4 17:25:13 Carpal tunnel syndrome 55060206 Completed 200710/28/2016 Problem Code: G56.00; Problem Code Type: ICD-10; Not Available [facility] 3 05:11:49 Benign neoplasm of colon 43043243 Completed 201010/28/2016 Problem Code: D12.6; Problem Code Type: ICD-10; Not Available [facility] 3 05:11:49 Screenin g for disorder Completed 201503/25/2023 Problem Code: Z13.9; Problem Code Type: ICD-10; Not Available [facility] 3 05:11:50 Actinic keratosi s 872466974 Completed 201511/01/2018 Problem Code: L57.0; Problem Code Type: ICD-10; MD Món[address], 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 Procedures Surgical History None recorded. Imaging Results Imaging Date Name Status LastModified by Organiz ation Details LastModified Time 02/17/2024 MAMMO, screening, bilateral completed [email or web address] [facility] (Radiology) [address] , [place], [address], 02/17/2024 14:09:04 12/26/2020 bone density completed Information [...] foot completed [email or web address] [facility] [address], [place], [address], 04/20/2024 14:58:28 02/23/2023 imaging/diagno stic result completed [...] active Not Available Not Available Not [facility] Guaifenesin AC 10 mg-100 mg/5 mL oral syrup 5ML every six hours 05/07 completed Not Available Not Available Not Available Vitals Date Recorded Body height Body mass index (BMI) Body weight Body temperature Respiratory rate Heart rate Systolic blood pressure Diastolic blood pressure Provider Name and Address Organization Details Last Updated DateTime 4 168.91 cm 17.8 kg/m2 73337.3 5 g 97.5 [degF] 16 /min 62 /min 118 mm[Hg] 78 mm[Hg] EMILY CRUZ LPN [facility] 10:36:34 Date Recorded Body height Body mass index (BMI) Body weight Body temperature Oxygen saturation Oxygen saturation in Arterial blood by Pulse oximetry Heart rate Respiratory rate Systolic blood pressure Diastolic blood pressure Provider Name and Address Organization Details Last Updated DateTime 4 168.91 cm 17.8 kg/m2 15651.3 5 g 98.2 [degF] 97 % 97 % 60 /min 16 /min 149 mm[Hg] 78 mm[Hg] Palmira Ybarra [facility] 11:23:35 Social History Question Answer Notes LastModified by Organizat ion Details LastModified Time Tobacco Smoking Status Never Smoker EMILY CRUZ LPN [facility] 01/25/2024 10:47:15 Would You Say That, [...] LastModified Time Mother Family history of Arthritis carlospalia.70 Not available 2022 03:52:41 Father Family history of cancer of colon carlospalia.70 Not available 2022 03:52:42 Notes:*Problem: Mother decea [...] Details Recorded Time Pneumococcal conjugate PCV20, polysaccharide IVY881 conjugate, adjuvant, PF 01/25/2024 completed SUE SIMMONS MD [address], [place], [address], [facility] 01/25/2024 11:16:28 Td (adult), 2 Lf tetanus toxoid, preservative free, adsorbed 01/13/2022 completed Not Available [facility] 05/08/2023 06:14:51 Tdap 03/30/2012 completed Not Available [facility] 06:14:51 zoster live 04/19/2012 completed Not Available [facility] 05/08/2023 06:14:52 Influenza, split virus, quadrivalent, PF 04/25/2015 completed Not Available [facility] 05/08/2023 06:14:52 Pneumococcal Conjugate, unspecified formulation 09/03/2014 completed Not Available [facility] 05/08/2023 06:14:52 COVID-19, mRNA, LNP-S, PF, 100 mcg/0.5mL dose or 50 mcg/0.25mL dose 08/17/2020 completed Not Available [facility] 05/08/2023 06:14:52 COVID-19, mRNA, LNP-S, PF, 100 mcg/0.5mL dose or 50 mcg/0.25mL dose 09/14/2020 completed Not Available [facility] 05/08/2023 06:14:52 COVID-19, mRNA, LNP-S, PF, 100 mcg/0.5mL dose or 50 mcg/0.25mL dose 04/22/2021 completed Not Available [facility] 05/08/2023 06:14:52 SARS-COV-2 (COVID-19) vaccine, UNSPECIFIED 02/02/2022 completed Not Available [facility] 05/08/2023 06:14:52 SARS-COV-2 (COVID-19) vaccine, UNSPECIFIED 05/20/2022 completed Not Available [facility] 05/08/2023 06:14:52 COVID-19, mRNA, LNP-S, bivalent, PF, 30 mcg/0.3 mL dose 11/19/2022 completed Not Available [facility] 05/08/20 06:14:52 pneumococcal polysaccharide PPV23 03/30/2012 completed Not Available [facility] 2022 06:14:52 influenza, unspecified formulation 04/22/2017 completed Not Available [facility] 05/08/2023 06:14:53 influenza, unspecified formulation 04/23/2016 completed Not Available [facility] 05/08/2023 06:14:53 influenza, unspecified formulation 05/11/2020 completed Not Available [facility] 05/08/2023 06:14:53 influenza, unspecified formulation 05/23/2019 completed Not Available [facility] 05/08/2023 06:14:53 zoster recombinant 06/28/2020 completed ML [facility] 01/25/2024 08:59:58 zoster recombinant 10/27/2020 completed ML [facility] 01/25/2024 09:00:11 Past Encounters Encounter ID Performer Location Encounter Start Date Encounter Closed Date Diagnosis/Indication Diagnosis SNOMED-CT Code Diagnosis ICD10 Code [id number] Jaida Childs RN [facility] [address] [place] [address] 05/28/2023 12:17:27 05/28/2023 13:12:02 Screening for malignant neoplasm of colon 704985400 Z12.11 [id number] SUE SIMMONS MD [facility] [place] [address] 01/25/2024 10:23:54 01/25/2024 11:06:21 Active or passive immunization 563206487 Z23 Screening mammography 24 278851 Z12.31 Adult heal th examination 703889580 Z00.00 Screening for malignant neoplasm of colon 518975334 Z12.11 Senile osteoporosis 1804 0001 M81.0 [id number] KRYSTEN VILLATORO RN [facility] [address] [place] [address] 03/30/2024 09:17:41 03/30/2024 10:06:36 [id number] [facility] [address] [facility] [place] [address] 04/21/2024 09:27:00 04/21/2024 13:04:45 Diarrhea 04396711 R19.7 Health Concerns Section Related Observation LastModified by Organization Detai ls LastModified Time None Recorded Concern Status LastModified by Organization Details LastModified Time None Recorded Advance Directives Directive N: None on record Payers Encounter Date Sequence Insurance Name Policy Number Policy Escudero Covered Member ID Escudero Member ID Guarantor Name 05/28/2023 1 [employer] [facility] [facility] [place] [facility] [facility] [id number] Jessie C Duran [id number] Jessie C Duran 01/25/2024 1 [place] [employer] Jessie C Duran [id number] Jessie C Duran 01/25/2024 1 [facility] [place] ANYWHERE - MEDICARE ADVANTAGE (MEDICARE REPLACEMENT PPO) [id number] Jessie C Duran [id number] Jessie C Duran 03/30/2024 1 [place] [employer] [place] Jessie C Duran [id number] Jessie C Duran 03/30/2024 1 [facility] [place] - MEDICARE ADVANTAGE (MEDICARE REPLACEMENT PPO) [id number] Jessie C Duran [id number] Jessie C Duran 04/21/2024 1 [place] [employer] [place] Jessie C Duran [id number] Jessie C Duran 04/21/2024 1 [employer] [facility] [facility] [place] [facility] [place]WHERE - MEDICARE ADVANTAGE (MEDICARE REPLACEMENT PPO) [id number] Jessie Duran [id number] Jessie Duran Notes Date Note Type Note [...] chores in the gardens. MD [address], [place], [address], [facility] 01/25/2024 11:16:51 04/21/2024 text/html HPI Notes: Venus [...] No other ill symptoms [address], [place], [address], [facility]. 04/22/2024 18:16:05 OBGyn Episode No OBEpisode recorded.
--- OUTSIDE RECORDS SUMMARY | 2024-05-03 10:09 | XMS_ITS | Encounter Summary ---
[place] [address] Care Team Providers Care Sales & Service Associate Name Role Phone Tierra Taylor MD Primary Care Provider Reason for Visit * Reason Comments Skin Check Encounter Details Date Type Department Care Team (Late st Contact Info) Description 11/26/2016 10:00 AM EDT Office Visit Dermatology at [address] [phone] Renan Ba MD [address] [facility], [place] [address] History of basal cell carcinoma; Nevus Social [...] left nasal sidewall, excised Mohs surgery in [place], November 2003. Jessie follows up and is [...] 10:15 AM EDT Office Visit Dermatology at [place] [address] [place] [address] Renan Ba MD [address] [facility], [facility] [place] [address] documented as of this encounter Visit Diagnoses Diagnosis History of basal cell carcinoma Personal history of other malignant neoplasm of skin Nevus Benign neoplasm of skin, site unspecified documented in this encounter Care Teams Sales & Service Associate Relationship Specialty Start Date End Date Tierra Taylor MD [address] [place] [address] PCP - General 05/21/10 01/12/19 documented as of this encounter
--- OUTSIDE RECORDS SUMMARY | 2024-05-03 10:09 | XMS_ITS | Encounter Summary ---
Author Organization [facility] [place] [address] Care Team Providers Care Butadiene Converter Helper Name Role Phone Sue Simmons MD Primary Care Provider [phone] Reason for Visit * Reason Comments Annual Exam Encounter Details Date Type Department Care Team (Late st Contact Info) Description 01/13/2019 8:45 AM EDT Office Visit Dermatology at [address] [phone] Renan Ba MD [address] [facility], [place] [address] History of basal cell carcinoma; Dermatitis Social [...] 10:15 AM EDT Office Visit Dermatology at [address] [place] [address] Renan Ba MD [address] [facility], [place] [address] documented as of this encounter Visit Diagnoses Diagnosis History of basal cell carcinoma Personal history of other malignant neoplasm of skin Dermatitis Contact dermatitis and other eczema, due to unspecified cause documented in this encounter Care Teams Butadiene Converter Helper Relationship Specialty Start Date End Date Sue Simmons MD [address] [place] [address] [facility] 1 [place] [address] PCP - General Family Medicine 01/13/19 documented as of this encounter
--- OUTSIDE RECORDS SUMMARY | 2024-05-03 10:09 | XMS_ITS | Encounter Summary ---
[place] [address] Care Team Providers Care Hand Cementer Name Role Phone Tierra Taylor MD Primary Care Provider [phone] Reason for Visit * Reason Comments Follow-up Skin Check Encounter Details Date Type Department Care Team (Late st Contact Info) Description 11/13/2017 2:15 PM EDT Office Visit Dermatology at [address] [place] [address] Renan Ba MD [address] [facility], [place] [address] [place], [place] [phone] History of basal cell carcinoma; Dermatitis Social [...] up and on September 12 was in [place] and applied her sister's sunscreen to her [...] Upcoming Encounters Date Type Department Care Team ([facility] Contact Info) Description 10/13/2024 10:15 AM EDT Office Visit Dermatology at [place] [address] [place] [address] Renan Ba MD [address] [facility] [address], [place] [address] documented as of this encounter Visit Diagnoses Diagnosis History of basal cell carcinoma Personal history of other malignant neoplasm of skin Dermatitis Contact dermatitis and other eczema, due to unspecified cause documented in this encounter Care Teams Hand Cementer Relationship Specialty Start Date End Date Tierra Taylor MD [address] [place] [address] PCP - General 11/23/10 7/17/19 documented as of this encounter
--- OUTSIDE RECORDS SUMMARY | 2024-05-03 10:09 | XMS_ITS | Encounter Summary ---
Author Organization [facility] Address [address] [place] [address] Care Team Providers Care Dump Truck Operator Name Role Phone Unknown, Provider Primary Care Provider Kaylee lazar Encounter Details Date Type Department Care Team (Late st Contact Info) Description 04/22/2024 Lab Requisition [facility] Pathology & Laboratory Medicine - [facility] [address] [place], [place] [id number] Outr Resulting Lab, Provider Social History Tobacco [...] Salmonella PCR Negative Negative 04/22/2024 22:15 EDT [facility] Shigella/Enteroin vasive E. coli Negative Negative 04/22/2024 22:15 EDT [facility] HN LAB CAMPYLOBACTER PCR Negative Negative 04/22/2024 22:15 EDT [facility] Shiga Toxin PCR Negative Negative 22:15 EDT [facility] Feces SPECIMEN FROM RECTUM / Unknown 04/22/2024 9:00 EDT 04/22/2024 16:19 EDT Provider Outr Resulting Lab MICROBIOLOGY - GENERAL ORDERABLES [facility] [address] [place] [address] documented in this encounter Visit Diagnoses Not on filedocumented in this encounter Care Teams Dump Truck Operator Relationship Specialty Start Date End Date Unknown, Provider, PCP - General 01/15/11 documented as of this encounter
--- OUTSIDE RECORDS SUMMARY | 2024-05-03 10:09 | XMS_ITS | Clinical Summary ---
[place] [address] Care Team Providers Care Supervisor Electronics Inspection Name Role Phone Sue Simmons MD Primary Care Provider [phone] Allergies No known active allergies Medications Medication [...] AM EDT Office Visit Dermatology at [address] [place] [phone] Renan Ba MD [address] [facility] [address], [place] [address] Health Maintenance Due Date Last Done Comments Hepatitis C Screening 1963 Tetanus/Diphtheria/Pertussis Vaccines (1 - Tdap) 09/12 Zoster vaccine (1 of 2) 1996 Advance Directive 2001 Bone Density Scan 09/13/2011 Pneumoccocal Vaccine: 65+ (1 of 1 - PCV) 09/13/2011 Covid-19 Vaccine ( - 2023- season) 2024 Influenza (Flu) vaccine (1 o f 1 - Influenza standard series) 02/28/2024 Care Teams Supervisor Electronics Inspection Relationship Specialty Start Date End Date Sue Simmons MD [facility] [address] [place], [place] [id number] PCP - General Family Medicine 01/13/19
--- OUTSIDE RECORDS SUMMARY | 2024-05-03 10:09 | XMS_ITS | Referral Summary ---
Author Organization [facility] Address [address] [place] [address] Care Team Providers Care Breaker Operator Name Role Phone Unknown, Provider Primary Care Provider Unava ilable Encounters Date Type Department Care Team Description 04/22/2024 Lab Requisition [facility] Pathology & Laboratory Medicine - [address] [address] Outr Resulting Lab, Provider from Last 3 [...] Negative Negative 04/22/2024 22:15 EDT [facility] Shigella/Enteroin vasive E. coli Negative Negative 04/22/2024 22:15 EDT [facility] HN LAB CAMPYLOBACTER PCR Negative Negative 04/22/2024 22:15 EDT [facility] Shiga Toxin PCR Negative Negative 22:15 EDT [facility] Feces SPECIMEN FROM RECTUM / Unknown 04/22/2024 9:00 EDT 04/22/2024 16:19 EDT Provider Outr Resulting Lab MICROBIOLOGY - GENERAL ORDERABLES [facility] [address] [place] [address] from Last 3 Months Care Teams Breaker Operator Relationship Specialty Start Date End Date Unknown, Provider, PCP - General 01/15/11
[2024-05-05 22:43] LABS: Calprotectin <50.0 mcg/g
== END 2024-05-03 10:08 | disposition home or self-care (01) ==
LOC: NCHCN 10:07
PROVIDERS: PCP Family Medicine; Visit Provider Family Medicine
DX: R19.7 Diarrhea, unspecified (principal)
CPT/HCPCS: 83993

== ENCOUNTER 2024-05-10 14:23 | Outpatient (REF) | payer MEDICARE, SELFPAY ==
--- OUTSIDE RECORDS SUMMARY | 2024-05-10 14:24 | XMS_ITS | Continuity of Care Document ---
Author Organization [place] - [facility] [employer] [facility], [facility] - [facility] Address [address] [place] [address] Care Team Providers Care Lumber Tallier Name Role Phone KANDICE FALCON Finisher [employer] Assessment No assessment recorded. Plan of Treatment Reminders Order Date Submit Date Provider Last Modified By Organization Details Last Modified Time Details Appointments Nurse Visit 20 2023 01:40P M [facility] Nursing Staff Not available Not available Not available Annual Wellness Exam 40 2024 09:00A M Sue Oneill Not available Not available Not available Lab O&P (ova & parasite s), stool 2023 024 [facility] ([facility] Direct), [address] [place] [address] [place], [address], 04/28/2024 16:29:36 culture, stool 2023 024 [facility] ([facility]), [address] [place] [address] [place], [address], 04/25/2024 08:38:37 C diff toxin DNA, stool 2023 024 [facility] ([facility]), [address] [place] [address] [place], [address], 04/22/2024 12:06:29 giardia + cryptosp oridium Ag, stool 2023 024 [facility] (Outpatient Lab), [address] [place], [address], 04/23/2024 13:49:57 CBC w/ auto diff 2023 [facility] ([facility]), [address] [place] [address] [place], [address], 04/21/2024 17:56:16 CMP, serum or plasma 2023 [facility] ([facility]), [address] [place] [address] [place], [address], 04/21/2024 17:56:18 C-reacti ve protein, quantita tive, serum or plasma 2023 [facility] ([facility]), [address] [place] [address] , [place], [address], 04/21/2024 18:00:55 Referral None recorded . Procedures None recorded . Surgeries None recorded . Imaging None recorded . Medication Orders None recorded . Patient TargetsNo targets recorded. Patient Instructions Encounter Date Encounter Id Patient Instructions Last Modified By Organization Details Last Modified Time 04/21/2024 [id number] 1. Blood work obtained today will likely have results back before we close. When they return I will call you to review findings. 2. You have been given materials and instructions on how to obtain stool studies. Please remember that the study for crypto and Giardia needs to go to [facility] lab. All of the other stool studies can go to [facility]. 3. Stool studies will [...] Address Organization Details Recorded Time Osteoart hritis 019230853 Active [address], [place] [address] , [facility] 4 17:24:57 Senile osteopor osis 43928812 Active 2011 Alendron ate 08/2011-: ZOMETA in 02/2021, 2021, [address], [place] [address] , [facility] 4 17:40:14 History of malignan t neoplasm of skin 761827812 Active 2003 Dr Falcon annually . 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 70385414306 9107 Active [address], [place] [address] , [facility] 4 17:25:59 Hearing loss 81854864 Active 2015 hearing aides MD [address], [place] [address] , [facility] 4 11:13:29 Adult health examinat ion Active [address], [facility] [address] , [facility] 4 17:24:00 Screenin g mammogra phy Completed 201801/24/2024 Problem Code: Z12.31; Problem Code Type: ICD-10; MD [address], [facility] [address] , [facility] 4 17:25:15 Actinic keratosi s 060552052 Active [address], [facility] [address] , [facility] 17:23:42 Abnormal weight loss 199006680 Completed 201812/08/2018 Problem Code: R63.4; Problem Code Type: ICD-10; Not Available [facility] 3 05:11:48 Vitamin D deficien cy 79555679 Active [address], [place] [address] , [facility] 17:26:15 Vitamin B deficien cy 92123440 Active 2018 B12 312 [address], [facility] [address] , [facility] 17:28:35 Elevated blood-pr essure reading without diagnosi s of hyperten sabino 596032499 Completed 202001/24/2024 01/14/20 22 - Comments only - Sue Oneill MD - BP excellen t in the office today, and has been okay at home, no need for medicaio ns at this time. Continue to monitor, continue to avoid extra salt. Problem Code: R03.0; Problem Code Type: ICD-10; MD [address], [place], [address] , [facility] 4 17:24:35 Pain of toe of right foot 24138435308 9101 Active [address], [facility] [address] , [facility] 4 17:25:04 Screenin g for malignan t neoplasm of colon Completed 202201/24/2024 Problem Code: Z12.11; Problem Code Type: ICD-10; MD [address], [facility] [phone] [place] [address] 4 17:25:13 Carpal tunnel syndrome 16098072 Completed 200710/28/2016 Problem Code: G56.00; Problem Code Type: ICD-10; Not Available [facility] 3 05:11:49 Benign neoplasm of colon 17336154 Completed 201010/28/2016 Problem Code: D12.6; Problem Code Type: ICD-10; Not Available [facility] 3 05:11:49 Screenin g for disorder Completed 201503/25/2023 Problem Code: Z13.9; Problem Code Type: ICD-10; Not Available [facility] 3 05:11:50 Actinic keratosi s Completed 201511/01/2018 Problem Code: L57.0; Problem Code Type: ICD-10; [facility] [address] [place] [address] 4 17:23:42 Basal cell carcinom a of face 417090036 Completed 200303/25/2023 Problem Code: 173.31; Problem Code Type: ICD-9; Not Available [facility] 3 05:11:50 Osteopor osis 51806444 Completed 201103/25/2023 Not Available [facility] 3 05:11:50 Pain in left lower limb 639984356 Completed 201510/28/2016 Problem Code: M79.605; Problem Code Type: ICD-10; Not Available [facility] 3 05:11:51 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 Medical Equipment [...] Not Available Bactroban 2 % topical ointment cleve twice daily 09/03 completed Not Available Not [...] Not Available Bactroban Nasal 2 % ointment CLEVE twice daily 01/20 completed Not Available Not [...] Updated DateTime 4 168.91 cm 17.8 kg/m2 47030.3 5 g 98.2 [degF] 97 % 97 % 60 /min 16 /min 149 mm[Hg] 78 mm[Hg] Palmira Ybarra [facility] 4 11:23:35 Social History Question Answer Notes LastModified by Organizat ion Details LastModified Time Tobacco Smoking Status Never Smoker ML ROBERTS, [facility] 01/25/2024 10:47:15 Would You Say That, [...] Details Recorded Time Pneumococcal conjugate PCV20, polysaccharide CTX112 conjugate, adjuvant, PF 01/25/2024 completed SUE ONEILL MD [facility] [address], [place], [address], [facility] 01/25/2024 11:16:28 Td (adult), 2 Lf tetanus toxoid, preservative free, adsorbed 01/13/2022 completed Not Available [facility] 05/08/2023 06:14:51 Tdap 03/30/2012 completed Not Available [facility] 06:14:51 zoster live 04/19/2012 completed Not Available [facility] 05/08/2023 06:14:52 Influenza, split virus, quadrivalent, PF 04/25/2015 completed Not Available [facility] 05/08/2023 06:14:52 Pneumococcal Conjugate, unspecified formulation 09/03/2014 completed Not Available [facility] 05/08/2023 06:14:52 COVID-19, mRNA, LNP-S, PF, 100 mcg/0.5mL dose or 50 mcg/0.25mL dose 08/17/2020 completed Not Available [facility] 05/08/2023 06:14:52 COVID-19, mRNA, LNP-S, PF, 100 mcg/0.5mL dose or 50 mcg/0.25mL dose 09/14/2020 completed Not Available [facility] 05/08/2023 06:14:52 COVID-19, mRNA, LNP-S, PF, 100 mcg/0.5mL dose or 50 mcg/0.25mL dose 04/22/2021 completed Not Available [facility] 05/08/2023 06:14:52 SARS-COV-2 (COVID-19) vaccine, UNSPECIFIED 02/02/2022 completed Not Available [facility] 05/08/2023 06:14:52 SARS-COV-2 (COVID-19) vaccine, UNSPECIFIED 05/20/2022 completed Not Available [facility] 05/08/2023 06:14:52 COVID-19, mRNA, LNP-S, bivalent, PF, 30 mcg/0.3 mL dose 11/19/2022 completed Not Available [facility] 05/08/20 06:14:52 pneumococcal polysaccharide PPV23 03/30/2012 completed Not Available [facility] 2022 06:14:52 influenza, unspecified formulation 04/22/2017 completed Not Available [facility] 05/08/2023 06:14:53 influenza, unspecified formulation 04/23/2016 completed Not Available [facility] 05/08/2023 06:14:53 influenza, unspecified formulation 05/11/2020 completed Not Available [facility] 05/08/2023 06:14:53 influenza, unspecified formulation 05/23/2019 completed Not Available [facility] 05/08/2023 06:14:53 zoster recombinant 06/28/2020 completed [place] - [facility], [facility]. 01/25/2024 08:59:58 zoster recombinant 10/27/2020 completed [place] - [facility]. 01/25/2024 09:00:11 Past Encounters Encounter ID Performer Location Encounter Start Date Encounter Closed Date Diagnosis/Indication Diagnosis SNOMED-CT Code Diagnosis ICD10 Code [id number] KRYSTEN VILLATORO RN [facility] [address] [place] [address] 03/30/2024 09:17:41 03/30/2024 10:06:[id number] [place] [address] 04/21/2024 09:27:00 04/21/2024 13:04:45 Diarrhea 57629400 R19.7 Health Concerns Section Related Observation LastModified by Organization Detai ls LastModified Time None Recorded Concern Status LastModified by Organization Details LastModified Time None Recorded Payers Encounter Date Sequence Insurance Name Policy Number Policy Escudero Covered Member ID Escudero Member ID Guarantor Name 04/21/2024 1 [place] [employer] Jessie Duran [id number] Jessie Duran 04/21/2024 1 [facility] ANYWHERE - MEDICARE ADVANTAGE (MEDICARE REPLACEMENT PPO) [id number] Jessie Duran [id number] Jessie Duran Notes Date Note Type Note [...] No other ill symptoms [address], [place], [address], [facility]. 04/22/2024 18:16:05 OBGyn Episode No OBEpisode recorded.
--- OUTSIDE RECORDS SUMMARY | 2024-05-10 14:24 | XMS_ITS | Continuity of Care Document ---
Author Organization [facility], [facility] Address [address] [place] [address] Care Team Providers Care [employer] Supervisor Name Role Phone KANDICE FALCON Wellness Instructor Assessment No assessment recorded. Plan of Treatment Reminders Order Date Submit Date Provider Last Modified By Organization Details Last Modified Time Details Appointments Nurse Visit 20 2023 01:40P M [facility] Nursing Staff Not available Not available Not available Annual Wellness Exam 40 2024 09:00A M Sue Oneill Not available Not available Not available Lab CBC w/ diff 2023 024 [facility] (Registration ), [address] [place] [address] , [place], [address], 05/10/2024 13:50:31 Referral None recorded . Procedures None recorded . Surgeries None recorded . Imaging None recorded . Medication Orders None recorded . Patient TargetsNo targets recorded. Patient InstructionsNo instructions recorded. Reason for Referral None Reported. Problems Name Problem SNOMED Code Status Onset Date Resolution Date Notes Provider Name and Address Organization Details Recorded Time Osteoart hritis 145342260 Active [address], [place], [address] , [facility] 17:24:57 Senile osteopor osis 31740958 Active 2011 Alendron ate 08/2011-: ZOMETA in 02/2021, 2021, [address], [place], [address] , [facility] 4 17:40:14 History of malignan t neoplasm of skin 447105290 Active 2003 Dr Falcon annually . 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 43325521380 9107 Active [address], [place] [address] , [facility] 4 17:25:59 Hearing loss 47716496 Active 2015 hearing aides MD [address], [facility] [address] , [facility] 4 11:13:29 Adult health examinat ion Active [address], [facility] [address] , [facility] 4 17:24:00 Screenin g mammogra phy Completed 201801/24/2024 Problem Code: Z12.31; Problem Code Type: ICD-10; MD [address], [facility] [address] , [facility] 4 17:25:15 Actinic keratosi s 449201410 Active [address], [place], [address] , [facility] 4 17:23:42 Abnormal weight loss 479829784 Completed 201812/08/2018 Problem Code: R63.4; Problem Code Type: ICD-10; Not Available [facility] 3 05:11:48 Vitamin D deficien cy 35642480 Active [address], [facility] [address] , [facility] 17:26:15 Vitamin B deficien cy 66072468 Active 2018 B12 312 [address], [facility] [address] , [facility] 17:28:35 Elevated blood-pr essure reading without diagnosi s of hyperten sabino 258879341 Completed 202001/24/2024 01/14/20 22 - Comments only - Sue Oneill MD - BP excellen t in the office today, and has been okay at home, no need for medicaio ns at this time. Continue to monitor, continue to avoid extra salt. Problem Code: R03.0; Problem Code Type: ICD-10; MD [address], [place], [address] , [facility] 4 17:24:35 Pain of toe of right foot 27703756246 9101 Active [address], [facility] [address] , [facility] 4 17:25:04 Screenin g for malignan t neoplasm of colon Completed 202201/24/2024 Problem Code: Z12.11; Problem Code Type: ICD-10; MD [address], [facility] [address] , [facility] 4 17:25:13 Carpal tunnel syndrome 71955168 Completed 200710/28/2016 Problem Code: G56.00; Problem Code Type: ICD-10; Not Available [facility] 3 05:11:49 Benign neoplasm of colon 02264281 Completed 201010/28/2016 Problem Code: D12.6; Problem Code Type: ICD-10; Not Available [facility] 3 05:11:49 Screenin g for disorder Completed 201503/25/2023 Problem Code: Z13.9; Problem Code Type: ICD-10; Not Available [facility] 3 05:11:50 Actinic keratosi s Completed 201511/01/2018 Problem Code: L57.0; Problem Code Type: ICD-10; SUE ONEILL MD [address], [place], [address] , [facility] 17:23:42 Basal cell carcinom a of face 360087022 Completed 200303/25/2023 Problem Code: 173.31; Problem Code Type: ICD-9; Not Available [facility] 3 05:11:50 Osteopor osis 45978786 Completed 201103/25/2023 Not Available [facility] 3 05:11:50 Pain in left lower limb 137685759 Completed 201510/28/2016 Problem Code: M79.605; Problem Code Type: ICD-10; Not Available 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 3 05:11:51 Abscess of vulva 09802260 Completed 202011/12/2020 Problem Code: N76.4; Problem Code Type: ICD-10; Not Available [facility] 3 05:11:51 Diarrhea 61637123 Active 2023 KONSTANTIN KANG PA-C [address], [place], [address] , [facility] 12:12:48 Problem Notes None recorded. Medical [...] Not Available Bactroban 2 % topical ointment celve twice daily 09/03 completed Not Available Not [...] Smoking Status Never Smoker EMILY CRUZ LPN [facility], [place] - [facility]. 01/25/2024 10:47:15 Would You Say That, [...] Father Family history of cancer of colon linui.70 Not available 2022 03:52:42 Notes:*Problem: Mother decea [...] Details Recorded Time Pneumococcal conjugate PCV20, polysaccharide GSH993 conjugate, adjuvant, PF 01/25/2024 completed MD [address], [place], [address], [facility] 01/25/2024 11:16:28 Td (adult), 2 Lf tetanus toxoid, preservative free, adsorbed 01/13/2022 completed Not Available [facility] 05/08/2023 06:14:51 Tdap 03/30/2012 completed Not Available [facility] 06:14:51 zoster live 04/19/2012 completed Not Available [facility] 05/08/2023 06:14:52 Influenza, split virus, quadrivalent, PF 04/25/2015 completed Not Available [facility] 05/08/2023 06:14:52 Pneumococcal Conjugate, unspecified formulation 09/03/2014 completed Not Available [facility] 05/08/2023 06:14:52 COVID-19, mRNA, LNP-S, PF, 100 mcg/0.5mL dose or 50 mcg/0.25mL dose 08/17/2020 completed Not Available [facility] 05/08/2023 06:14:52 COVID-19, mRNA, LNP-S, PF, 100 mcg/0.5mL dose or 50 mcg/0.25mL dose 09/14/2020 completed Not Available [facility] 05/08/2023 06:14:52 COVID-19, mRNA, LNP-S, PF, 100 mcg/0.5mL dose or 50 mcg/0.25mL dose 04/22/2021 completed Not Available [facility] 05/08/2023 06:14:52 SARS-COV-2 (COVID-19) vaccine, UNSPECIFIED 02/02/2022 completed Not Available [facility] 05/08/2023 06:14:52 SARS-COV-2 (COVID-19) vaccine, UNSPECIFIED 05/20/2022 completed Not Available [facility] 05/08/2023 06:14:52 COVID-19, mRNA, LNP-S, bivalent, PF, 30 mcg/0.3 mL dose 11/19/2022 completed Not Available [facility] 05/08/20 06:14:52 pneumococcal polysaccharide PPV23 03/30/2012 completed Not Available [facility] 2022 06:14:52 influenza, unspecified formulation 04/22/2017 completed Not Available [facility] 05/08/2023 06:14:53 influenza, unspecified formulation 04/23/2016 completed Not Available [facility] 05/08/2023 06:14:53 influenza, unspecified formulation 05/11/2020 completed Not Available [facility] 05/08/2023 06:14:53 influenza, unspecified formulation 05/23/2019 completed Not Available [facility] 05/08/2023 06:14:53 zoster recombinant 06/28/2020 completed EMILYML [place], [place] - [facility], [facility]. 01/25/2024 08:59:58 zoster recombinant 10/27/2020 completed ML [place], [place] - [facility]. 01/25/2024 09:00:11 Past Encounters Encounter ID Performer Location Encounter Start Date Encounter Closed Date Diagnosis/Indication Diagnosis SNOMED-CT Code Diagnosis ICD10 Code [id number] [facility] - [address] [place] [address] 04/21/2024 09:27:00 04/21/2024 13:04:45 Diarrhea 53048844 R19.7 [id number] KRYSTEN VILLATORO RN [address] [place] [address] 05/10/2024 13:25:46 05/10/2024 13:42:07 White blood cell count outside reference range 840160267 R79.89 Health Concerns Section Related Observation LastModified by Organization Detai ls LastModified Time None Recorded Concern Status LastModified by Organization Details LastModified Time None Recorded Payers Encounter Date Sequence Insurance Name Policy Number Policy Escudero Covered Member ID Escudero Member ID Guarantor Name 05/10/2024 1 [facility] [facility] [place] - MEDICARE ADVANTAGE (MEDICARE REPLACEMENT PPO) [id number] Jessie Duran [id number] Jessie Duran 05/10/2024 [place] A - [facility] (MEDICARE) Jessie Duran [id number] Jessie Duran OBGyn Episode No OBEpisode recorded.
--- OUTSIDE RECORDS SUMMARY | 2024-05-10 14:24 | XMS_ITS | Data Portability ---
Author Organization [facility] Address [address] [place] [address] Care Team Providers Care Draw Furnace Tender Name Role Phone KANDICE FALCON Certified Nurses Aide Assessment Encounter Date Assessment Date Assessment LastModified by Organization Details LastModified Time 03/30/2024 03/30/2024 IFOB test negative; documented on order [email or web address] Not available 03/30/2024 09:59:30 Plan of Treatment Reminders Order Date Submit Date Provider Last Modified By Organization Details Last Modified Time Details Appointments Nurse Visit 20 2023 01:40P M [facility] Nursing Staff Not available Not available Not available Annual Wellness Exam 40 2024 09:00A M Sue Simmons Not available Not available Not available Lab fecal occult blood, immunoas say, stool 2022 023 [email or web address] [facility], [address], [place], [address], 05/28/2023 16:10:06 fecal occult blood, immunoas say, stool 2023 024 [email or web address] [facility], [address], [place], [address], 03/30/2024 10:03:56 O&P (ova & parasite s), stool 2023 024 [facility] ([facility]), [facility] [facility] , [place], [address], 04/28/2024 16:29:36 culture, stool 2023 [facility] ([facility]), [address] [place] [address] [place], [address], 04/25/2024 08:38:37 C diff toxin DNA, stool 2023 [facility] ([facility]), [address] [place] [address] [place], [address], 04/22/2024 12:06:29 giardia + cryptosp oridium Ag, stool 2023 [facility] (Outpatient Lab), [address] [place] [address], [place], [address], 04/23/2024 13:49:57 CBC w/ auto diff 2023 024 [facility] ([facility]), [address] [place] [address] [place], [address], 04/21/2024 17:56:16 CMP, serum or plasma 2023 024 [facility] ([facility]), [address] [place] [address] [place], [address], 04/21/2024 17:56:18 C-reacti ve protein, quantita tive, serum or plasma 2023 024 [facility] ([facility]), [address] [place] [address] [place], [address], 04/21/2024 18:00:55 CBC w/ diff 2023 [facility] (Registration ), [address] [place] [address] [place], [address], 05/10/2024 13:50:31 Referral None recorded . Procedures None recorded . Surgeries None recorded . Imaging MAMMO, screenin g, bilatera l [address] [facility] (Radiology), [address] [facility] , [place], [address], 02/17/2024 14:09:03 Medication Orders None recorded . Patient TargetsNo targets recorded. Patient Instructions Encounter Date Encounter Id Patient Instructions Last Modified By Organization Details Last Modified Time 04/21/2024 [id number] 1. Blood work obtained today will likely have results back before we close. When they return I will call you to review findings. 2. You have been given materials and instructions on how to obtain stool studies. Please remember that the study for crypto and Giardia needs to go to [facility]. All of the other stool studies can go to [facility]. 3. Stool studies will come back [...] y, stool iFOB negati ve Not Available [facility] [address], [facility] [place], [address], 05/28/2023 12:18:17 03/30/20 24 03/30/2024 fecal occul t blood , immun oassa y, stool ifob negati ve Not Available [facility] [address], [place], [address], 03/30/2024 09:54:01 04/21/20 24 04/21/2024 COMPL ETE BLOOD COUNT W/DIF F WBC 3.88 10_3/ uL 4.4-10 .8 low Not Available [facility] [address] [place] [address] [place], [address] 04/21/2024 17:56:16 04/21/2004/21/2024 COMPL ETE BLOOD COUNT W/DIF F RBC 4.25 10_6/ uL 3.93-5 .22 normal Not Available [address] [place], [address] 04/21/2024 17:56:16 04/21/2004/21/2024 COMPL ETE BLOOD COUNT W/DIF F HGB 13.4 g/dL 11.2-1 5.7 normal Not Available [address] [place], [address] 04/21/2024 17:56:16 04/21/2004/21/2024 COMPL ETE BLOOD COUNT W/DIF F HCT 40.7 % 36.0-4 6.0 normal Not Available [address] [place], [address] 04/21/2024 17:56:16 04/21/2004/21/2024 COMPL ETE BLOOD COUNT W/DIF F MCV 96 fL 80-95 high Not Available [address] [place], [address] 04/21/2024 17:56:16 04/21/2004/21/2024 COMPL ETE BLOOD COUNT W/DIF F MCH 31.5 pg 27.0-3 3.0 normal Not Available [address] [place], [address] 04/21/2024 17:56:16 04/21/2004/21/2024 COMPL ETE BLOOD COUNT W/DIF F MCHC 32.9 % 32.0-3 6.0 normal Not Available [address] [place], [address] 04/21/2024 17:56:16 04/21/2004/21/2024 COMPL ETE BLOOD COUNT W/DIF F RDW 12.1 % 11.7-1 4.6 normal Not Available [address] [place], [address] 04/21/2024 17:56:16 04/21/2004/21/2024 COMPL ETE BLOOD COUNT W/DIF F platelet count 295 10_3/ uL 130-40 0 normal Not Available [address] [place], [address] 04/21/2024 17:56:16 04/21/2004/21/2024 COMPL ETE BLOOD COUNT W/DIF F MPV 9.8 fL 8.0-11 .0 normal Not Available [address] [place], [address] 04/21/2024 17:56:16 04/21/2004/21/2024 COMPL ETE BLOOD COUNT W/DIF F neutrophils % 55.6 % Not Available [address] [place], [address] 04/21/2024 17:56:16 04/21/2004/21/2024 COMPL ETE BLOOD COUNT W/DIF F lymphocytes % 33.0 % Not Available [address] [facility] [place], [address] 04/21/2024 17:56:16 04/21/2004/21/2024 COMPL ETE BLOOD COUNT W/DIF F monocytes % 9.3 % Not Available [address] [place], [address] 04/21/2024 17:56:16 04/21/2004/21/2024 COMPL ETE BLOOD COUNT W/DIF F eosinophils % 1.3 % Not Available [address] [place], [address] 04/21/2024 17:56:16 04/21/2004/21/2024 COMPL ETE BLOOD COUNT W/DIF F basophils % 0.8 % Not Available [address] [place], [address] 04/21/2024 17:56:16 04/21/2004/21/2024 COMPL ETE BLOOD COUNT W/DIF F immature grans % 0.0 % Not Available [address] [place], [address] 04/21/2024 17:56:16 04/21/2004/21/2024 COMPL ETE BLOOD COUNT W/DIF F nucleated RBC 0.0 % 0.0-0. 3 normal Not Available [address] [place], [address] 04/21/2024 17:56:16 04/21/2004/21/2024 COMPL ETE BLOOD COUNT W/DIF F absolute neutrophil count 2.16 10_3/ uL 1.2-6. 7 normal Not Available [address] [place], [address] 04/21/2024 17:56:16 04/21/2004/21/2024 COMPL ETE BLOOD COUNT W/DIF F absolute lymphocyte count 1.28 10_3/ uL 1.2-3. 4 normal Not Available [address] [place], [address] 04/21/2024 17:56:16 04/21/2004/21/2024 COMPL ETE BLOOD COUNT W/DIF F absolute monocyte count 0.36 10_3/ uL 0.1-0. 8 normal Not Available [address] [place], [address] 04/21/2024 17:56:16 04/21/2004/21/2024 COMPL ETE BLOOD COUNT W/DIF F absolute eosinophil count 0.05 10_3/ uL 0.0-0. 7 normal Not Available [address] [place], [address] 04/21/2024 17:56:16 04/21/2004/21/2024 COMPL ETE BLOOD COUNT W/DIF F absolute basophil count 0.03 10_3/ uL 0.0-0. 2 normal Not Available [address] [place], [address] 04/21/2024 17:56:16 04/21/2004/21/2024 COMPR EHENS TRE METAB OLIC PANEL calcium 9.5 mg/dL 8.5-10 .1 normal Not Available [address] [place], [address] 04/21/2024 17:56:18 04/21/2004/21/2024 COMPR EHENS TRE METAB OLIC PANEL glucose 91 mg/dL 74-106 normal Not Available Ana mathew [address] [place], [address] 04/21/2024 17:56:18 04/21/2004/21/2024 COMPR EHENS TRE METAB OLIC PANEL BUN 23 mg/dL 7-18 high Not Available Ana mathew [address] [place], [address] 04/21/2024 17:56:18 04/21/2004/21/2024 COMPR EHENS TRE METAB OLIC PANEL creatinine 0.8 mg/dL 0.55-1 .02 normal Not Available [address] [place], [address] 04/21/2024 17:56:18 04/21/2004/21/2024 COMPR EHENS TRE METAB [...] young er-ag ed adult s. Not Available [address] [place], [address] 04/21/2024 17:56:18 04/21/2004/21/2024 COMPR EHENS TRE METAB OLIC PANEL total protein 7.0 g/dL 6.4-8. 2 normal Not Available [address] [place], [address] 04/21/2024 17:56:18 04/21/2004/21/2024 COMPR EHENS TRE METAB OLIC PANEL albumin 4.0 g/dL 3.4-5. 0 normal Not Available [address] [place], [address] 04/21/2024 17:56:18 04/21/2004/21/2024 COMPR EHENS TRE METAB OLIC PANEL bilirubin, total 0.82 mg/dL 0.2-1. 0 normal Not Available [address] [place], [address] 04/21/2024 17:56:18 04/21/2004/21/2024 COMPR EHENS TRE METAB OLIC PANEL alk phos 57 U/L 46-116 normal Not Available [address] [place], [address] 04/21/2024 17:56:18 04/21/2004/21/2024 COMPR EHENS TRE METAB OLIC PANEL sodium 143 mmol/ L 136-14 5 normal Not Available [address] [place], [address] 04/21/2024 17:56:18 04/21/2004/21/2024 COMPR EHENS TRE METAB OLIC PANEL potassium 4.2 mmol/ L 3.5-5. 1 normal Not Available [address] [place], [address] 04/21/2024 17:56:18 04/21/2004/21/2024 COMPR EHENS TRE METAB OLIC PANEL chloride 106 mmol/ L 98-107 normal Not Available [address] [place], [address] 04/21/2024 17:56:18 04/21/2004/21/2024 COMPR EHENS TRE METAB OLIC PANEL CO2 29.8 mmol/ L 21.0-3 2.0 normal Not Available [address] [place], [address] 04/21/2024 17:56:18 04/21/2004/21/2024 COMPR EHENS TRE METAB OLIC PANEL anion gap 7.2 mmol/ L 3-11 normal Not Available [address] [place], [address] 04/21/2024 17:56:18 04/21/2004/21/2024 COMPR EHENS TRE METAB OLIC PANEL AST 20 U/L 15-37 normal Not Available Ana mathew [address] [place], [address] 04/21/2024 17:56:18 04/21/2004/21/2024 COMPR EHENS TRE METAB OLIC PANEL ALT 24 U/L 14-59 normal Not Available Ana mathew [address] [place], [address] 04/21/2024 17:56:18 04/21/2004/21/2024 C-MIQUEL CTIVE PROTE IN C-reactive protein < 0.50 mg/dL <or=0. 5 Not Available [facility] ([facility]) [address] [place] [address] [place], [address], 04/21/2024 17:56:19 04/22/2004/22/2024 C DIFF PCR C [...] mens will be proce ssed. Not Available [address] [place], [address] 04/22/2024 12:06:29 04/22/2004/22/2024 FECAL BACTE RIAL PATHO GENS PCR salmonella PCR Negati ve negati ve Not Available [facility] ([facility]) [address] [place] [address] [place], [address], 04/25/2024 08:26:04 04/22/2004/22/2024 FECAL BACTE RIAL PATHO GENS PCR shigella/ent eroinvasive ecoli Negati ve negati ve Not Available [facility] ([facility]) [address] [place] [address] [place], [address], 04/25/2024 08:26:04 04/22/2004/22/2024 FECAL BACTE RIAL PATHO GENS PCR campylobacte r PCR Negati ve negati ve Not Available [facility] ([facility]) [address] [place] [address] [place], [address], 04/25/2024 08:26:04 04/22/20 24 04/22/2024 FECAL BACTE RIAL PATHO GENS PCR shiga toxin PCR Negati ve negati ve Test perfo rmed or refer red by [facility] [address], [place] [address] Not Available [facility] ([facility]) [address] [place] [address] [place], [address], 04/25/2024 08:26:04 04/22/20 24 04/22/2024 FECAL BACTE RIAL PATHO GENS PCR salmonella PCR Negati ve negati ve Not Available [address] [place], [address] 04/28/2024 16:23:24 04/22/20 24 04/22/2024 FECAL BACTE RIAL PATHO GENS PCR shigella/ent eroinvasive ecoli Negati ve negati ve Not Available [address] [place], [address] 04/28/2024 16:23:24 04/22/20 24 04/22/2024 FECAL BACTE RIAL PATHO GENS PCR campylobacte r PCR Negati ve negati ve Not Available [address] [place], [address] 04/28/2024 16:23:24 04/22/20 24 04/22/2024 FECAL BACTE RIAL PATHO GENS PCR shiga toxin PCR Negati ve negati ve Test perfo rmed or refer red by [facility] [address], [place] [address] Not Available [address] [place], [address] 04/28/2024 16:23:24 04/22/20 24 04/28/2024 OVA AND GRISELDA ITE, FECES ova and parasite, feces SEE BELOW RESUL T: FINAL 04/28 1511 SOUR E: STOOL , STLP OVA AND GRISELDA ITE, MICRO SCOPY , F FINAL No griselda ites seen. Crypt ospor idium , Cyclo spora , and micro spori janette are not readi ly detec rich by this otonielo d. Singl e negat tre speci men does not rule out griselda itic infec tion. Test Perfo rmed by: [facility] [place] [address] , [place] [address] Lab Direc tor: Tonny mccall Ph.D. ; CLIA# [id number] Not Available [facility] ([facility]) [address] [place] [address] [place], [address], 04/28/2024 16:23:24 05/03/20 24 05/05/2024 CALPR OTECT IN calprotectin <50.0 mcg/g ----- ----- ----- ----R EFERE NCE VALUE ----- ----- ----- ----- ----- - <50.0 (Norm al) Test Perfo rmed by: [facility] - [place] [address] , [place] [address] Lab Direc tor: Tonny mccall Ph.D. ; CLIA# [id number] Not Available [address] [place], [address] 05/06/2024 10:18:27 02/17/20 24 02/17/2024 MAMMO , scree shruthi, bilat gin Gray t Name: RogerAnnita angel Naman Unit #: [id number] Loc: DI Orderi [facility] er: Sue Simmons M.D. Accoun t #: [id number] Status : REG CLI Primar [...] error, please notify us immedi helenly at and return the origin al report to us at the addres s above. Thank- you. [email or web address] [facility] (Radiology) [address], [place], [address], 02/17/2024 14:09:04 03/14/20 24 12/26/2020 bone densi ty No observ ation record ed. Not Available 03/14 03:49:02 03/14/20 24 02/03/2023 bone densi ty No observ ation record ed. Not Available 03/14 03:49:03 03/14/20 24 12/26/2020 MAMMnathan [place] No observ ation record ed. [...] foot No observ ation record ed. [email or web address] [facility], [place], [address], 04/20/2024 14:58:28 03/14/20 24 02/23/2023 imagi ng/di agnos tic resul t No observ ation record ed. Not Available 03/14 03:49:25 Result Notes Documentation Provider Name and Address Organization Details Recorded Time Mammo, Screening, Bilateral : Patient Name: Jessie Duran Unit #: [id number] Loc: DI Ordering Provider: Sue Simmons M.D. 6 Status: REG [facility] Primary Care Provider: Sue Simmons M.D. Date [...] By: Norma Rodas M.D. 02/17/24 1345 02/17/24 1348 Transcribed By: Norma Rodas 02/17/24 1342 This is privileged, confidential information intended only for the provider named. Any use or distribution by any person other than this provider is strictly prohibited. If you receive this report in error, please notify us immediately at [phone] and return the original report to us at the address above. Thank-you. 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 46381376576 9107 Active [address], [place] [address] , [facility] 4 17:25:59 Hearing loss 29987350 Active 2015 hearing aides MD [address], [facility] [address] , [facility] 4 11:13:29 Adult health examinat ion Active [address], [facility] [address] , [facility] 4 17:24:00 Screenin g mammogra phy Completed 201801/24/2024 Problem Code: Z12.31; Problem Code Type: ICD-10; MD [address], [facility] [address] , [facility] 4 17:25:15 Actinic keratosi s 007459207 Active [address], [facility] [address] [place] [address] [employer] 4 17:23:42 Abnormal weight loss 158255697 Completed 201812/08/2018 Problem Code: R63.4; Problem Code Type: ICD-10; Not Available [facility] 3 05:11:48 Vitamin D deficien cy 76828342 Active [address], [facility] [address] , [facility] 4 17:26:15 Vitamin B deficien cy 52916305 Active 2018 B12 312 [address], [place] [address] , [facility] 4 17:28:35 Elevated blood-pr essure reading without diagnosi s of hyperten gage 359645250 Completed 202001/24/2024 01/14/20 22 - Comments only - Sue Simmons MD - BP excellen t in the office today, and has been okay at home, no need for medicaio ns at this time. Continue to monitor, continue to avoid extra salt. Problem Code: R03.0; Problem Code Type: ICD-10; MD [address], [place], [address] , [facility] 4 17:24:35 Pain of toe of right foot 22501006894 9101 Active [address], [facility] [address] , [facility] 4 17:25:04 Screenin g for malignan t neoplasm of colon Completed 202201/24/2024 Problem Code: Z12.11; Problem Code Type: ICD-10; MD [address], [facility] [address] , [facility] 4 17:25:13 Carpal tunnel syndrome 24202254 Completed 200710/28/2016 Problem Code: G56.00; Problem Code Type: ICD-10; Not Available [facility] 3 05:11:49 Benign neoplasm of colon 70788328 Completed 201010/28/2016 Problem Code: D12.6; Problem Code Type: ICD-10; Not Available [facility] 3 05:11:49 Screenin g for disorder Completed 201503/25/2023 Problem Code: Z13.9; Problem Code Type: ICD-10; Not Available [facility] 3 05:11:50 Actinic keratosi s Completed 201511/01/2018 Problem Code: L57.0; Problem Code Type: ICD-10; MD [address], [place], [address] , [facility] 17:23:42 Basal cell carcinom a of face 799186133 Completed 200303/25/2023 Problem Code: 173.31; Problem Code Type: ICD-9; Not Available [facility] 3 05:11:50 Osteopor osis 28340636 Completed 201103/25/2023 Not Available [facility] 3 05:11:50 Pain in left lower limb 788695698 Completed 201510/28/2016 Problem Code: M79.605; Problem Code Type: ICD-10; Not Available [facility] 3 05:11:51 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 12:12:48 Problem Notes None recorded. Procedures Surgical History None recorded. Imaging Results Imaging Date Name Status LastModified by Organiz ation Details LastModified Time 02/17/2024 MAMMO, screening, bilateral completed [email or web address] [facility] (Radiology) [address], [place], [address], 02/17/2024 14:09:04 12/26/2020 bone density completed Information [...] foot completed [email or web address] [facility], [place], [address], 04/20/2024 14:58:28 02/23/2023 imaging/diagno stic result completed [...] Updated DateTime 4 168.91 cm 17.8 kg/m2 19104.3 5 g 97.5 [degF] 16 /min 62 /min 118 mm[Hg] 78 mm[Hg] EMILY CRUZ LPN [facility] 4 10:36:34 Date Recorded Body height Body mass index (BMI) Body weight Body temperature Oxygen saturation Oxygen saturation in Arterial blood by Pulse oximetry Heart rate Respiratory rate Systolic blood pressure Diastolic blood pressure Provider Name and Address Organization Details Last Updated DateTime 4 168.91 cm 17.8 kg/m2 79470.3 5 g 98.2 [degF] 97 % 97 % 60 /min 16 /min 149 mm[Hg] 78 mm[Hg] Palmira Ybarra [facility] 11:23:35 Social History Question Answer Notes LastModified by Organizat ion Details LastModified Time Tobacco Smoking Status Never Smoker EMILY CRUZ LPN [facility], [facility] 01/25/2024 10:47:15 Would You Say That, [...] Details Recorded Time Pneumococcal conjugate PCV20, polysaccharide [id number] conjugate, adjuvant, PF 01/25/[address], [place], [address], [facility]. 01/25/2024 11:16:28 Td (adult), 2 Lf tetanus toxoid, preservative free, adsorbed 01/13/2022 completed Not Available [facility] 05/08/2023 06:14:51 Tdap 03/30/2012 completed Not Available [facility] 06:14:51 zoster live 04/19/2012 completed Not Available [facility] 05/08/2023 06:14:52 Influenza, split virus, quadrivalent, PF 04/25/2015 completed Not Available [facility] 05/08/2023 06:14:52 Pneumococcal Conjugate, unspecified formulation 09/03/2014 completed Not Available [facility] 05/08/2023 06:14:52 COVID-19, mRNA, LNP-S, PF, 100 mcg/0.5mL dose or 50 mcg/0.25mL dose 08/17/2020 completed Not Available [facility] 05/08/2023 06:14:52 COVID-19, mRNA, LNP-S, PF, 100 mcg/0.5mL dose or 50 mcg/0.25mL dose 09/14/2020 completed Not Available [facility] 05/08/2023 06:14:52 COVID-19, mRNA, LNP-S, PF, 100 mcg/0.5mL dose or 50 mcg/0.25mL dose 04/22/2021 completed Not Available [facility] 05/08/2023 06:14:52 SARS-COV-2 (COVID-19) vaccine, UNSPECIFIED 02/02/2022 completed Not Available [facility] 05/08/2023 06:14:52 SARS-COV-2 (COVID-19) vaccine, UNSPECIFIED 05/20/2022 completed Not Available [facility] 05/08/2023 06:14:52 COVID-19, mRNA, LNP-S, bivalent, PF, 30 mcg/0.3 mL dose 11/19/2022 completed Not Available [facility] 05/08/20 06:14:52 pneumococcal polysaccharide PPV23 03/30/2012 completed Not Available [facility] 2022 06:14:52 influenza, unspecified formulation 04/22/2017 completed Not Available [facility] 05/08/2023 06:14:53 influenza, unspecified formulation 04/23/2016 completed Not Available [facility] 05/08/2023 06:14:53 influenza, unspecified formulation 05/11/2020 completed Not Available [facility] 05/08/2023 06:14:53 influenza, unspecified formulation 05/23/2019 completed Not Available [facility] 05/08/2023 06:14:53 zoster recombinant 06/28/2020 completed [facility] [place] [place] [facility] 01/25/2024 08:59:58 zoster recombinant 10/27/2020 completed [place] [facility] 01/25/2024 09:00:11 Past Encounters Encounter ID Performer Location Encounter Start Date Encounter Closed Date Diagnosis/Indication Diagnosis SNOMED-CT Code Diagnosis ICD10 Code [id number] Jaida Childs RN [facility] [address] [place] [address] 05/28/2023 12:17:27 05/28/2023 13:12:02 Screening for malignant neoplasm of colon 049529679 Z12.11 [id number] SUE SIMMONS MD [facility] [address] [place] [address] 01/25/2024 10:23:54 01/25/2024 11:06:21 Active or passive immunization 720527406 Z23 Screening mammography 24 273959 Z12.31 Adult heal th examination 992585339 Z00.00 Screening for malignant neoplasm of colon 961113222 Z12.11 Senile osteoporosis 1804 0001 M81.0 [id number] KRYSTEN VILLATORO RN [facility] [address] [place] [address] 03/30/2024 09:17:41 03/30/2024 10:06:[id number],[place] [address] [place] [address] 04/21/2024 09:27:00 04/21/2024 13:04:45 Diarrhea 36765060 R19.7 [id number] KRYSTEN VILLATORO RN [facility] [address] [place] [address] 05/10/2024 13:25:46 05/10/2024 13:42:07 White blood cell count outside reference range 679466942 R79.89 Health Concerns Section Related Observation LastModified by Organization Detai ls LastModified Time None Recorded Concern Status LastModified by Organization Details LastModified Time None Recorded Advance Directives Directive N: None on record Payers Encounter Date Sequence Insurance Name Policy Number Policy Escudero Covered Member ID Escudero Member ID Guarantor Name 05/28/2023 1 [facility] [id number] Jessie C Duran [id number] Jessie C Duran 01/25/2024 1 [place] Jessie C Duran [id number] Jessie C Duran 01/25/2024 1 [facility] [place] ANYWHERE - MEDICARE ADVANTAGE (MEDICARE REPLACEMENT PPO) [id number] Jessie C Duran [id number] Jessie C Duran 03/30/2024 1 [place] Jessie C Duran [id number] Jessie C Duran 03/30/2024 1 [facility] [place] ANYWHERE - MEDICARE ADVANTAGE (MEDICARE REPLACEMENT PPO) [id number] Jessie C Duran [id number] Jessie C Duran 04/21/2024 1 [place] Jessie C Duran [id number] Jessie C Duran 04/21/2024 1 [facility] [place] ANYWHERE - MEDICARE ADVANTAGE (MEDICARE REPLACEMENT PPO) [id number] Jessie C Duran [id number] Jessie C Duran 05/10/2024 1 [facility] [place] ANYWHERE - MEDICARE ADVANTAGE (MEDICARE REPLACEMENT PPO) [id number] Jessie C Duran [id number] Jessie C Duran 05/10/2024 [place] [id number] ([place]ICARE[place] Jessie C Duran [id number] Jessie C Duran Notes Date Note Type Note Provider [...] in the gardens. MD [address], [place], [address], [facility] 01/25/2024 11:16:51 04/21/2024 text/html HPI Notes: [...] No other ill symptoms [address], [place], [address], [facility]. 04/22/2024 18:16:05 OBGyn Episode No OBEpisode recorded.
--- OUTSIDE RECORDS SUMMARY | 2024-05-10 14:25 | XMS_ITS | Clinical Summary ---
[place] [address] Care Team Providers Care Desktop Support Engineer Name Role Phone Sue Simmons MD Primary Care Provider [phone] Allergies No known active allergies Medications Medication [...] 10:15 AM EDT Office Visit Dermatology at [address] [place] [address] Renan Ba MD [address], [place] [address] Health Maintenance Due Date Last Done Comments Hepatitis C Screening 1963 Tetanus/Diphtheria/Pertussis Vaccines (1 - Tdap) 09/12 Zoster vaccine (1 of 2) 1996 Advance Directive 2001 Bone Density Scan 09/13/2011 Pneumoccocal Vaccine: 65+ (1 of 1 - PCV) 09/13/2011 Covid-19 Vaccine ( - 2023- season) 2024 Influenza (Flu) vaccine (1 o f 1 - Influenza standard series) 02/28/2024 Care Teams Desktop Support Engineer Relationship Specialty Start Date End Date Sue Simmons MD [facility] [address] [place], [place] [id number] PCP - General Family Medicine 01/13/19
--- OUTSIDE RECORDS SUMMARY | 2024-05-10 14:25 | XMS_ITS | Encounter Summary ---
Author Organization [facility] Address [address] [place] [address] Care Team Providers Care Auto Painter Helper Name Role Phone Unknown, Provider Primary Care Provider Kaylee lazar Encounter Details Date Type Department Care Team (Late st Contact Info) Description 04/22/2024 Lab Requisition [facility] Pathology & Laboratory Medicine - [facility] [address] [place], [place] [address] Outr Resulting Lab, Provider Social History Tobacco Use Types Packs/Day Years Used Date Smoking Tobacco: Never Assessed Comments Unknown Sex and Gender Information Value Date Recorded Sex Assigned at Not on file Legal Sex Female 18:34 EST Gender Identity Not on file Sexual Orientation [...] Salmonella PCR Negative Negative 04/22/2024 22:15 EDT [facility] Shigella/Enteroin vasive E. coli Negative Negative 04/22/2024 22:15 EDT [facility] HN LAB CAMPYLOBACTER PCR Negative Negative 04/22/2024 22:15 EDT [facility] Shiga Toxin PCR Negative Negative 22:15 EDT [facility] Feces SPECIMEN FROM RECTUM / Unknown 04/22/2024 9:00 EDT 04/22/2024 16:19 EDT us Provider Outr Resulting Lab MICROBIOLOGY - GENER AL ORDERABLES Final Result [facility] [address] [place] [address] documented in this encounter Visit Diagnoses Not on filedocumented in this encounter Care Teams Auto Painter Helper Relationship Specialty Start Date End Date Unknown, Provider, PCP - General 01/15/11 documented as of this encounter
--- OUTSIDE RECORDS SUMMARY | 2024-05-10 14:25 | XMS_ITS | Referral Summary ---
Author Organization [facility] Address [address] [place] [address] Care Team Providers Care Belt Sander Name Role Phone Unknown, Provider Primary Care Provider Unava ilable Encounters Date Type Department Care Team Description 04/22/2024 Lab Requisition [facility] Pathology & Laboratory Medicine - [facility] [address] [place] [address] Outr Resulting Lab, Provider from Last 3 [...] Salmonella PCR Negative Negative 04/22/2024 22:15 EDT [facility] Shigella/Enteroin vasive E. coli Negative Negative 04/22/2024 22:15 EDT [facility] HN LAB CAMPYLOBACTER PCR Negative Negative 04/22/2024 22:15 EDT [facility] Shiga Toxin PCR Negative Negative 22:15 EDT [facility] Feces SPECIMEN FROM RECTUM / Unknown 04/22/2024 9:00 EDT 04/22/2024 16:19 EDT us Provider Outr Resulting Lab MICROBIOLOGY - GENER AL ORDERABLES Final Result [facility] [address] [place] [address] from Last 3 Months Care Teams Belt Sander Relationship Specialty Start Date End Date Unknown, Provider, PCP - General 01/15/11
--- OUTSIDE RECORDS SUMMARY | 2024-05-10 14:25 | XMS_ITS | Encounter Summary ---
[place] [address] Care Team Providers Care Anesthesia Resident Name Role Phone Sue Simmons MD Primary Care Provider [phone] Encounter Details Date Type Department Care Team [...] 10:15 AM EDT Office Visit Dermatology at [place] [address] [place] [address] Renan Ba MD [address], [place] [address] documented as of this encounter Visit Diagnoses Not on filedocumented in this encounter Care Teams Anesthesia Resident Relationship Specialty Start Date End Date Sue Simmons MD [facility] JONES [address]OWN [address] [place] [address] PCP - General Family Medicine 01/13/19 documented as of this encounter
--- OUTSIDE RECORDS SUMMARY | 2024-05-10 14:25 | XMS_ITS | Continuity of Care Document ---
Author Organization [facility] Address [address] [place] [address] Care Team Providers Care Real Estate Consultant Name Role Phone KANDICE FALCON [employer] Assessment Encounter Date Assessment Date Assessment LastModified by Organization Details LastModified Time 03/30/2024 03/30/2024 IFOB test negative; documented on order [email or web address] Not available 03/30/2024 09:59:30 Plan of Treatment Reminders Order Date Submit Date Provider Last Modified By Organization Details Last Modified Time Details Appointments Nurse Visit 20 2023 01:40P [facility] Nursing Staff Not available Not available [...] foot No observ ation record ed. [email or web address] [facility] [address], [place], [address], 04/20/2024 14:58:28 03/14/20 24 02/23/2023 imagi ng/di agnos tic resul t No observ ation record ed. Not Available 03/14 03:49:25 Result Notes None recorded. 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 54030031142 9107 Active [address], [facility] [address] , [facility] 4 17:25:59 Hearing loss 09791719 Active 2015 hearing aides MD [address], [facility] [address] , [facility] 4 11:13:29 Adult health examinat ion Active [address], [facility] [address] , [facility] 4 17:24:00 Screenin g mammogra phy Completed 201801/24/2024 Problem Code: Z12.31; Problem Code Type: ICD-10; MD [address], [place], [address] , [facility] 4 17:25:15 Actinic keratosi s 123989946 Active [address], [place], [address] , [facility] 4 17:23:42 Abnormal weight loss 274103525 Completed 201812/08/2018 Problem Code: R63.4; Problem Code Type: ICD-10; Not Available [facility] 3 05:11:48 Vitamin D deficien cy 59129716 Active [address], [place], [address] , [facility] 4 17:26:15 Vitamin B deficien cy 55848119 Active 2018 B12 312 [address], [facility] [address] , [facility] 4 17:28:35 Elevated blood-pr essure reading without diagnosi s of hyperten sabino 451992179 Completed 202001/24/2024 01/14/20 22 - Comments only - Sue Oneill MD - BP excellen t in the office today, and has been okay at home, no need for medicaio ns at this time. Continue to monitor, continue to avoid extra salt. Problem Code: R03.0; Problem Code Type: ICD-10; MD [address], [facility] [address] , [facility] 4 17:24:35 Pain of toe of right foot 78712410119 9101 Active [address], [place], [address] [place] [address] , [facility] 4 17:25:04 Screenin g for malignan t neoplasm of colon Completed 202201/24/2024 Problem Code: Z12.11; Problem Code Type: ICD-10; MD [address], [place], [address] , [facility] 4 17:25:13 Carpal tunnel syndrome 69941122 Completed 200710/28/2016 Problem Code: G56.00; Problem Code Type: ICD-10; Not Available [facility] 3 05:11:49 Benign neoplasm of colon 01825324 Completed 201010/28/2016 Problem Code: D12.6; Problem Code Type: ICD-10; Not Available [facility] 3 05:11:49 Screenin g for disorder Completed 201503/25/2023 Problem Code: Z13.9; Problem Code Type: ICD-10; Not Available [facility] 3 05:11:50 Actinic keratosi s Completed 201511/01/2018 Problem Code: L57.0; Problem Code Type: ICD-10; MD [address], [place], [address] , [facility] 4 17:23:42 Basal cell carcinom a of face 249744524 Completed 200303/25/2023 Problem Code: 173.31; Problem Code Type: ICD-9; Not Available [facility] 3 05:11:50 Osteopor osis 81756495 Completed 201103/25/2023 Not Available [facility] 3 05:11:50 Pain in left lower limb 821172869 Completed 201510/28/2016 Problem Code: M79.605; Problem Code Type: ICD-10; Not Available [facility] 3 05:11:51 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 [...] Smoker EMILY CRUZ LPN null, [place] - [facility]. 01/25/2024 10:47:15 Would You [...] Details Recorded Time Pneumococcal conjugate PCV20, polysaccharide SOC646 conjugate, adjuvant, PF 01/25/2024 completed SUE ONEILL MD [address], [place], [address], [facility] 01/25/2024 11:16:28 Td (adult), 2 Lf tetanus toxoid, preservative free, adsorbed 01/13/2022 completed Not Available [facility] 05/08/2023 06:14:51 Tdap 03/30/2012 completed Not Available [facility] 06:14:51 zoster live 04/19/2012 completed Not Available [facility] 05/08/2023 06:14:52 Influenza, split virus, quadrivalent, PF 04/25/2015 completed Not Available [facility] 05/08/2023 06:14:52 Pneumococcal Conjugate, unspecified formulation 09/03/2014 completed Not Available [facility] 05/08/2023 06:14:52 COVID-19, mRNA, LNP-S, PF, 100 mcg/0.5mL dose or 50 mcg/0.25mL dose 08/17/2020 completed Not Available [facility] 05/08/2023 06:14:52 COVID-19, mRNA, LNP-S, PF, 100 mcg/0.5mL dose or 50 mcg/0.25mL dose 09/14/2020 completed Not Available [facility] 05/08/2023 06:14:52 COVID-19, mRNA, LNP-S, PF, 100 mcg/0.5mL dose or 50 mcg/0.25mL dose 04/22/2021 completed Not Available [facility] 05/08/2023 06:14:52 SARS-COV-2 (COVID-19) vaccine, UNSPECIFIED 02/02/2022 completed Not Available [facility] 05/08/2023 06:14:52 SARS-COV-2 (COVID-19) vaccine, UNSPECIFIED 05/20/2022 completed Not Available [facility] 05/08/2023 06:14:52 COVID-19, mRNA, LNP-S, bivalent, PF, 30 mcg/0.3 mL dose 11/19/2022 completed Not Available [facility] 05/08/20 06:14:52 pneumococcal polysaccharide PPV23 03/30/2012 completed Not Available [facility] 2022 06:14:52 influenza, unspecified formulation 04/22/2017 completed Not Available [facility] 05/08/2023 06:14:53 influenza, unspecified formulation 04/23/2016 completed Not Available [facility] 05/08/2023 06:14:53 influenza, unspecified formulation 05/11/2020 completed Not Available [facility] 05/08/2023 06:14:53 influenza, unspecified formulation 05/23/2019 completed Not Available [facility] 05/08/2023 06:14:53 zoster recombinant 06/28/2020 completed ML [place], [facility]. 01/25/2024 08:59:58 zoster recombinant 10/27/2020 completed ML [place], [facility]. 01/25/2024 09:00:11 Past Encounters Encounter ID Performer Location Encounter Start Date Encounter Closed Date Diagnosis/Indication Diagnosis SNOMED-CT Code Diagnosis ICD10 Code [id number] KRYSTEN VILLATORO RN [place] [address] [place] [address] 03/30/2024 09:17:41 03/30/2024 10:06:36 Health Concerns Section Related Observation LastModified by Organization Detai ls LastModified Time None Recorded Concern Status LastModified by Organization Details LastModified Time None Recorded Payers Encounter Date Sequence Insurance Name Policy Number Policy Escudero Covered Member ID Escudero Member ID Guarantor Name 03/30/2024 1 [place] Jessie Duran [id number] Jessie Duran 03/30/[address] [facility] (MEDICARE REPLACEMENT PPO) [id number] Jessie Duran [id number] Jessie Duran OBGyn Episode No OBEpisode recorded.
--- OUTSIDE RECORDS SUMMARY | 2024-05-10 14:25 | XMS_ITS | Encounter Summary ---
[place] [address] Care Team Providers Care Hemstitching Machine Operator Name Role Phone Sue Simmons MD Primary Care Provider [phone] Encounter Details Date Type Department Care Team [...] 10:15 AM EDT Office Visit Dermatology at [place] [address] [place] [address] Renan Ba MD [address], [place] [address] documented as of this encounter Visit Diagnoses Not on filedocumented in this encounter Care Teams Hemstitching Machine Operator Relationship Specialty Start Date End Date Sue Simmons MD [facility] [address] [place] [address] PCP - General Family Medicine 01/13/19 documented as of this encounter
--- OUTSIDE RECORDS SUMMARY | 2024-05-10 14:25 | XMS_ITS | Encounter Summary ---
[place] [address] Care Team Providers Care Head Buyer Tobacco Name Role Phone Sue Simmons MD Primary Care Provider [phone] Reason for Visit * Reason Comments Annual Exam Encounter Details Date Type Department Care Team (Late st Contact Info) Description 10/12/2023 10:15 AM EDT Office Visit Dermatology at [address] [phone] Renan Ba MD [address] [facility], [place] [address] History of basal cell carcinoma Social History [...] 2003 3. History of high school/schooling in [employer] [place] 4. History of BCCA left lateral neck December 2016 Jessie follows up for repeat skin checkup. She has been doing well. She spent a lot of time out ofdoors taking care of her horses and maintaining the property gardening shopping etc. she has now lived for 20 years in [place]. Physical examination reveals a pleasant 78-year-old woman [...] 10:15 AM EDT Office Visit Dermatology at [place] [address] [place] [address] Renan Ba MD [address] [facility], [address] A DERMATOLOGY [place], [place] [address] documented as of this encounter Visit Diagnoses Diagnosis History of basal cell carcinoma Personal history of other malignant neoplasm of skin documented in this encounter Care Teams Head Buyer Tobacco Relationship Specialty Start Date End Date Sue Simmons MD [address] [place] [address] [facility] 1 [place] [address] PCP - General Family Medicine 01/13/19 documented as of this encounter
--- OUTSIDE RECORDS SUMMARY | 2024-05-10 14:25 | XMS_ITS | Encounter Summary ---
[place] [address] Care Team Providers Care Underlay Stitcher Name Role Phone Sue Simmons MD Primary Care Provider [phone] Reason for Visit * Reason Comments Skin Check Annual Exam Encounter Details Date Type Department Care Team (Late st Contact Info) Description 10/02/2022 10:15 AM EDT Office Visit Dermatology at [address] [address] Renan Ba MD [address] [facility], [place] [address] History of basal cell carcinoma; [place] (actinic [...] 10:15 AM EDT Office Visit Dermatology at [place] [address] [facility] [place] [address] Renan Ba MD [address] [facility], [place] [address] documented as of this encounter Visit Diagnoses Diagnosis History of basal cell carcinoma Personal history of other malignant neoplasm of skin AK (actinic keratosis) Actinic keratosis documented in this encounter Care Teams Underlay Stitcher Relationship Specialty Start Date End Date Sue Simmons MD [address] [place] [address] [facility] 1 [place] [address] PCP - General Family Medicine 01/13/19 documented as of this encounter
--- OUTSIDE RECORDS SUMMARY | 2024-05-10 14:25 | XMS_ITS | Encounter Summary ---
[place] [address] Care Team Providers Care Electronic Calibration Technician Name Role Phone Sue Simmons MD Primary Care Provider [phone] Encounter Details Date Type Department Care Team (Late st Contact Info) Description 01/16/2020 10:15 AM EDT Office Visit Dermatology at [address] [place] [address] Renan Ba MD [address], [place] [address] History of basal cell carcinoma Social History [...] 10:15 AM EDT Office Visit Dermatology at [place] [address] [facility] [place] [address] Renan Ba MD [address], [place] [address] documented as of this encounter Visit Diagnoses Diagnosis History of basal cell carcinoma Personal history of other malignant neoplasm of skin documented in this encounter Care Teams Electronic Calibration Technician Relationship Specialty Start Date End Date Sue Simmons MD [address] [place] [address] [address] [place] [address] PCP - General Family Medicine 01/13/19 documented as of this encounter
--- OUTSIDE RECORDS SUMMARY | 2024-05-10 14:25 | XMS_ITS | Encounter Summary ---
Author Organization [facility] Address [address] [place] [address] Care Team Providers Care Photographic Reproduction Technician Name Role Phone Unavailable Primary Care Provider Unavailabl e Encounter Details Date Type Department Care Team (Late st Contact Info) Description 05/07/2004 Results Only [facility] Medicine - [address] [id number] Tierra Taylor MD Social History Tobacco Use [...] ? JESSIE TAY ? Accession #: ? [id number] : ? 1945 (Age: 58) ??F ?Collect [...] End of Report [facility] 05/07/2004 05/09/2004 us Tierra Taylor MD PATHOLOGY ORDERABLES Final Resul t [facility] [address] [place] [address] documented in this encounter Visit Diagnoses Not on filedocumented in this encounter
--- OUTSIDE RECORDS SUMMARY | 2024-05-10 14:25 | XMS_ITS | Encounter Summary ---
Author Organization [facility] Address [address] [place] [address] Care Team Providers Care Mental Health Orderly Name Role Phone Unavailable Primary Care Provider Unavailabl e Encounter Details Date Type Department Care Team (Late st Contact Info) Description 11/17/2007 Results Only [facility] - [facility] [address] [place] [address] Corey Taylor MD [address] [place] [address] Social History Tobacco Use Types [...] Associated Diagnosis Comments SURGICAL PATHOLOGY Routine 11/17/2007 0:00 EDT documented in this encounter Results * SURGICAL PATHOLOGY (11/17/2007 0:00 EDT) Pathology Report: SURGICAL PATHOLOGY REPORT Reports generated via electronic interface contain original data; however they are lacking the format of the original report. Caution should be taken when reading/interpreti ng unformatted reports. Name: ? JESSIE TAY ? Accession #: ? [id number] ? : ? 1945 (Age: 62) ??F [...] specimen is entirely submitted as (C). ??(Billy Vigil)/[facility] End of Report [facility] 11/17/2007 11/18/2007 10: 21 EDT us Corey Taylor MD PATHOLOGY ORDERABLES Final Resul t [facility] [address] [place] [address] documented in this encounter Visit Diagnoses Not on filedocumented in this encounter
--- OUTSIDE RECORDS SUMMARY | 2024-05-10 14:25 | XMS_ITS | Encounter Summary ---
[place] [address] Care Team Providers Care Airline Customer Service Agent Name Role Phone Tierra Taylor MD Primary Care Provider [phone] Reason for Visit * Reason Comments Follow-up Skin Check Encounter Details Date Type Department Care Team (Late st Contact Info) Description 11/13/2017 2:15 PM EDT Office Visit Dermatology at [address] [place] [phone] Renan Ba MD [address] [facility], [place] A DERMATOLOGY [place], [place] [phone] History of basal cell carcinoma; Dermatitis Social [...] left nasal sidewall excised [place] Jessie follows up and on September 12 was in [place] and applied her sister's sunscreen to her [...] Upcoming Encounters Date Type Department Care Team ([facility] Contact Info) Description 10/13/2024 10:15 AM EDT Office Visit Dermatology at [place] [address] [place] [address] Renan Ba MD [address], [place] [address] documented as of this encounter Visit Diagnoses Diagnosis History of basal cell carcinoma Personal history of other malignant neoplasm of skin Dermatitis Contact dermatitis and other eczema, due to unspecified cause documented in this encounter Care Teams Airline Customer Service Agent Relationship Specialty Start Date End Date Tierra Taylor MD [address] [place] [address] PCP - General 11/23/10 7/17/19 documented as of this encounter
--- OUTSIDE RECORDS SUMMARY | 2024-05-10 14:25 | XMS_ITS | Encounter Summary ---
[place] [address] Care Team Providers Care Transcripter Name Role Phone Tierra Taylor MD Primary Care Provider [phone] Reason for Visit * Reason Comments Skin Check Encounter Details Date Type Department Care Team (Late st Contact Info) Description 11/26/2016 10:00 AM EDT Office Visit Dermatology at [address] [phone] Renan Ba MD [address] [facility], [place] [address] History of basal cell carcinoma; Nevus Social [...] left nasal sidewall, excised Mohs surgery in [place], November 2003. Jessie follows up and is [...] 10:15 AM EDT Office Visit Dermatology at [place] [address] [place] [address] Renan Ba MD [address] [facility], [facility] [place] [address] documented as of this encounter Visit Diagnoses Diagnosis History of basal cell carcinoma Personal history of other malignant neoplasm of skin Nevus Benign neoplasm of skin, site unspecified documented in this encounter Care Teams Transcripter Relationship Specialty Start Date End Date Tierra Taylor MD [address] [place] [address] PCP - General 05/21/10 01/12/19 documented as of this encounter
--- OUTSIDE RECORDS SUMMARY | 2024-05-10 14:25 | XMS_ITS | Encounter Summary ---
Author Organization [facility] [place] [address] Care Team Providers Care Wire Setter Name Role Phone Sue Simmons MD Primary Care Provider [phone] Reason for Visit * Reason Comments Annual Exam Encounter Details Date Type Department Care Team (Late st Contact Info) Description 01/13/2019 8:45 AM EDT Office Visit Dermatology at [address] [phone] Renan Ba MD [address] [facility], [place] [address] History of basal cell carcinoma; Dermatitis Social [...] 10:15 AM EDT Office Visit Dermatology at [address] [place] [address] Renan Ba MD [address] [facility], [place] [address] documented as of this encounter Visit Diagnoses Diagnosis History of basal cell carcinoma Personal history of other malignant neoplasm of skin Dermatitis Contact dermatitis and other eczema, due to unspecified cause documented in this encounter Care Teams Wire Setter Relationship Specialty Start Date End Date Sue Simmons MD [address] [place] [address] [facility] [address] [place] [address] PCP - General Family Medicine 01/13/19 documented as of this encounter
--- OUTSIDE RECORDS SUMMARY | 2024-05-10 14:25 | XMS_ITS | Encounter Summary ---
[place] [address] Care Team Providers Care Safety Risk Lead Name Role Phone Sue Simmons MD Primary Care Provider [phone] Reason for Visit * Reason Comments Skin Check Encounter Details Date Type Department Care Team (Late st Contact Info) Description 09/30/2021 4:00 PM EDT Office Visit Dermatology at [address] [place] [phone] Renan Ba MD [address] [facility], [place] [address] History of basal cell carcinoma; AK (actinic [...] 10:15 AM EDT Office Visit Dermatology at [place] [address] [facility] [place] [address] Renan Ba MD [address] [facility], [place] [address] documented as of this encounter Visit Diagnoses Diagnosis History of basal cell carcinoma Personal history of other malignant neoplasm of skin [place] (actinic keratosis) Actinic keratosis documented in this encounter Care Teams Safety Risk Lead Relationship Specialty Start Date End Date Sue Simmons MD [address] [place] [address] PCP - General Family Medicine 01/13/19 documented as of this encounter
--- OUTSIDE RECORDS SUMMARY | 2024-05-10 14:25 | XMS_ITS | Encounter Summary ---
Author Organization [facility] Address [address] [place] [address] Care Team Providers Care Pst Manager Name Role Phone Unavailable Primary Care Provider Unavailabl e Encounter Details Date Type Department Care Team (Late st Contact Info) Description 09/24/2007 Results Only [facility] Family Medicine - [address] [phone] Tierra Taylor MD Social History Tobacco Use [...] sufficient. [facility] Report Status Final [id number] [facility] 09/24/2007 8:04 EDT 10/05/2007 8:04 EDT us Tierra Taylor MD MICROBIOLOGY - GENERAL ORDERABLE S Final Result [facility] [address] [place] [address] * CYTOPATHOLOGY (09/24/2007 0:00 EDT) Pathology Report: CYTOPATHOLOGY REPORT Reports generated via electronic interface contain original data; however they are lacking the format of the original report. Caution should be taken when reading/interpreti ng unformatted reports. Name: ? JESSIE TAY ? Accession #: ? [id number] : ? 1945 (Age: 62) ??F ?Collect Date: ? 09/24/2007 Location: ? [facility] ? Receive Date: ? 09/27/2007 Provider: ?TIERRA TAYLOR MD Copy to: ? Specimen/Source: ?ThinPrep Pap Test, Endocervix, processed on [employer] ThinPrep Imaging System, with manual evaluation Last [...] Date: ??10/04/2007 07:55 End of Report [facility] 09/24/2007 09/27/2007 us Tierra Taylor MD PATHOLOGY ORDERABLES Final Resul t [facility] [address] [place] [address] documented in this encounter Visit Diagnoses Not on filedocumented in this encounter
--- OUTSIDE RECORDS SUMMARY | 2024-05-10 14:25 | XMS_ITS | Encounter Summary ---
Author Organization [facility] Address [address] [place] [address] Care Team Providers Care Mission Assessment Specialist Name Role Phone Unavailable Primary Care Provider Unavailabl e Encounter Details Date Type Department Care Team (Late st Contact Info) Description 01/13/2011 Results Only [facility] - [facility] ([facility]) [address] [place], [place] [phone] Corey Taylor MD [address] [place] [address] Social History Tobacco Use Types [...] ? TAY, JESSIE ? Accession #: ? [id number] ? : ? 1945 (Age: 65) ??F [...] reviewed and electronically signed by: ? DAFNE NERIA MD ? Report ??Date: 01/14/2011 17:20 ? [...] specimen is submitted intact as (B). (DEAN Edgar/leeanne ? End of Report ? [facility] 01/13/2011 01/13/2011 18: 08 EDT us Corey Taylor MD PATHOLOGY ORDERABLES Final Resul t [facility] [address] [place] [address] documented in this encounter Visit Diagnoses Not on filedocumented in this encounter
--- OUTSIDE RECORDS SUMMARY | 2024-05-10 14:25 | XMS_ITS | Clinical Summary ---
Author Organization [facility] Address [address] [place] [address] Care Team Providers Care Pipe Maker Name Role Phone Unknown, Provider Primary Care Provider Unava ilable Encounters Date Type Department Care Team Description 04/22/2024 Lab Requisition [facility] Pathology & Laboratory Medicine - [facility] [address] [place] [address] Outr Resulting Lab, Provider from Last 3 [...] Negative Negative 04/22/2024 22:15 EDT [facility] Shigella/Enteroin vasive E. coli Negative Negative 04/22/2024 22:15 EDT [facility] HN LAB CAMPYLOBACTER PCR Negative Negative 04/22/2024 22:15 EDT [facility] Shiga Toxin PCR Negative Negative 22:15 EDT [facility] Feces SPECIMEN FROM RECTUM / Unknown 04/22/2024 9:00 EDT 04/22/2024 16:19 EDT us Provider Outr Resulting Lab MICROBIOLOGY - GENER AL ORDERABLES Final Result [facility] [address] [place] [phone] from Last 3 Months Care Teams Pipe Maker Relationship Specialty Start Date End Date Unknown, Provider, PCP - General 01/15/11
--- OUTSIDE RECORDS SUMMARY | 2024-05-10 14:25 | XMS_ITS | Encounter Summary ---
Author Organization [facility] Address [address] [place] [address] Care Team Providers Care Mitten Sewer Name Role Phone Unknown, Provider Primary Care Provider Unava ilable Encounter Details Date Type Department Care Team (Late st Contact Info) Description 03/28/2011 Results Only [facility] Family Medicine - [address] [address] Tierra Taylor MD Social History Tobacco Use [...] ? JESSIE TAY ? Accession #: ? [id number] ? : ? 1945 (Age: 65) ??F [...] signed by: ? STAN Horn(ASCP) ? Report ??Date: 04/03/2011 12:55 HPV with [...] End of Report [facility] 03/28/2011 03/31/2011 us Tierra Taylor MD PATHOLOGY ORDERABLES Final Resul t [facility] [address] [place] [address] documented in this encounter Visit Diagnoses Not on filedocumented in this encounter Care Teams Mitten Sewer Relationship Specialty Start Date End Date Unknown, Provider, PCP - General 01/15/11 documented as of this encounter
--- OUTSIDE RECORDS SUMMARY | 2024-05-10 14:25 | XMS_ITS | Encounter Summary ---
[place] [address] Care Team Providers Care Technical Account Executive Name Role Phone Sue Simmons MD Primary Care Provider [phone] Encounter Details Date Type Department Care Team (Late st Contact Info) Description 08/30/2020 Telephone Ophthalmology at [address] [phone] Daja [place] Social History Tobacco [...] 10:15 AM EDT Office Visit Dermatology at [address] [place] [phone] Renan Ba MD [address], [place] [address] documented as of this encounter Visit Diagnoses Not on filedocumented in this encounter Care Teams Technical Account Executive Relationship Specialty Start Date End Date Sue Simmons MD [facility] [address] [place] [address] PCP - General Family Medicine 01/13/19 documented as of this encounter
[2024-05-10 14:42] LABS: Abs Immature Grans 0.01 10^3/uL (0.0-0.06); Absolute Basophil Count 0.03 10^3/uL (0.0-0.2); Absolute Eosinophil Count 0.05 10^3/uL (0.0-0.7); Absolute Lymphocyte Count 1.36 10^3/uL (1.2-3.4); Absolute Monocyte Count 0.29 10^3/uL (0.1-0.8); Absolute Neutrophil Count 3.36 10^3/uL (1.2-6.7); Basophils % 0.6 %; HCT 39.9 % (36.0-46.0); HGB 13.2 g/dL (11.2-15.7); Immature Grans % 0.2 %; Lymphocytes % 26.7 %; MCH 31.6 pg (27.0-33.0); MCHC 33.1 % (32.0-36.0); MCV 96 fL (80-95); MPV 9.4 fL (8.0-11.0); Monocytes % 5.7 %; Neutrophils % 65.8 %; Platelet Count 292 10^3/uL (130-400); RBC 4.18 10^6/uL (3.93-5.22); RDW 12.2 % (11.7-14.6); RDW-SD 42.8 fL
== END 2024-05-10 14:24 | disposition home or self-care (01) ==
LOC: NCHCN 14:23
PROVIDERS: PCP Family Medicine; Visit Provider Family Medicine
DX: R79.89 Other specified abnormal findings of blood chemistry (principal)
CPT/HCPCS: 85025

== ENCOUNTER 2025-04-07 07:17 | Day surgery (SDC) | payer MEDICARE, OTHER, SELFPAY ==
[2025-04-07 07:43] VITALS: BP 149/74; PULSE 61; RESP 20; TEMP 36.3; O2SAT 98
[2025-04-07] MEDS: Tropicam./Phenyleph. (1/2.5%) 5 ML BTL OS ×3 (07:51→08:03)
[2025-04-07] MEDS: Tropicam./Phenyleph. (1/2.5%) 5 ML BTL (07:51)
--- NOTE | 2025-04-07 07:55 | W.ANESPRE ---
General Info Date of Service Date Performed: 04/07/25 Height: 5 ft 6 in Weight: 48.9 kg Body Mass Index (BMI): 17.4 Surgical Procedure: Operation Date: 04/07/25 09:10 Proposed Procedure Side Surgeon p Cataract Extraction with IOL Implant Left Lance Cisse MD Meds Allergies and Home Medications Allergies Allergy/AdvReac Type Severity Reaction Status Date / Time No Known Allergies Allergy Verified 04/07/25 07:38 Home Medication ?Medication ?Instructions ?Recorded cholecalciferol (vitamin D3) 25 25 mcg PO DAILY 08/09/20 mcg (1,000 unit) tablet mecobalamin (vitamin B12) 1,000 1,000 mcg PO DAILY 08/09/20 mcg chewable tablet vitamin B complex 1 cap PO DAILY 04/04/25 Current Visit Medications: Current Medications Generic Name Dose Route Start Last Admin Trade Name Freq PRN Reason Stop Dose Admin Acetaminophen 1,000 mg 04/07/25 06:00 Acetaminophen 500 Mg Tab PO 05/07/25 05:59 Q4H PRN PRN Balanced Salt Solution 500 ml 04/07/25 06:00 Balanced Salt Soln.-Plus 500 Ml Bag OP 05/07/25 05:59 DIRECTED AARTI Miscellaneous Medication 0 ml 04/07/25 06:00 Prednisolone 1%, Moxifloxacin 0.5%, Bromfenac 0.09% 5.6ml Btl OS 05/07/25 05:59 DIRECTED AARTI Miscellaneous Medication 0 ml 04/07/25 06:00 Tropicam./Phenyleph. (1/2.5%) 5 Ml Btl OS 05/07/25 05:59 DIRECTED AARTI Tetracaine HCl 0 ml 04/07/25 06:00 Tetracaine 0.5% 4 Ml Btl OS 05/07/25 05:59 DIRECTED AARTI PFSH Active Problems Active Problems: Problem Status Onset Code Nuclear age-related cataract, left eye Acute H25.12 Excessive cerumen in both ear canals Acute H61.23 Bilateral sensorineural hearing loss Acute H90.3 Wears hearing aid in both ears Acute Z97.4 Corns and callosities Acute L84 Hammertoe of right foot Acute M20.41 Hammertoe of left foot Acute M20.42 Vitamin D deficiency Acute E55.9 Vitamin B 12 deficiency Acute E53.8 MRSA (methicillin resistant Staphylococcus aureus) infection Acute A49.02 Degenerative joint disease Chronic M19.90 Osteoporosis Chronic M81.0 History of basal cell carcinoma Acute Z85.828 Raynauds disease Acute I73.00 Hearing loss Acute H91.90 Actinic keratitis Acute H16.139 Elevated BP without diagnosis of hypertension Acute R03.0 Vulvar abscess Acute N76.4 Medical History Medical History Basal 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 Surgical History Surgical History History of colonoscopy Tobacco Smoking/Tobacco Use Status: Never Alcohol Alcohol Intake: former Substance Use Substance use: Never Substance use type: does not use Details: alcohol:t-365 Prental History History 1 Para Hx # Term Pregnancies 1 Multiple births Hx # Pregnancies Ectopic pregnancies AB induced Hx Number of Living Children 1 AB spontaneous Vital Signs and Lab Results Vital Signs Most Recent Vital Signs in EMR: Most Recent Vital Signs Temp Pulse Resp BP Pulse Ox 36.3 C L 61 20 149/74 H 98 04/07/25 07:43 04/07/25 07:43 04/07/25 07:43 04/07/25 07:43 04/07/25 07:43 Anesthesia Assessment and Plan Anesthesia History Personal History: No History of Anesthesia Complications Family History: No Family History of Anesthesia Complications Exercise Tolerance Exercise Tolerance: Metabolic Equivalents>4 Pertinent Negatives Pertinent Negatives: No Symptoms of GERD Cardiac & Pulmonary Exam Cardiac Exam: Normal S1/S2 Heart Sounds Pulmonary Exam: Clear Bilateral Breath Sounds Implantable Cardiac Device Does patient have a Pacemaker or an ICD?: No Airway Exam Known Difficult Airway: No Mallampati Class: 2 Mouth Opening: Normal (> 3cm) Thyromental Distance: Greater than 3 cm Neck Range of Motion: Full ROM Neck Circumference: Normal Teeth Condition: Normal Dentition ASA Classification ASA Score: ASA 2 Emergency Case?: No NPO Status NPO Status: NPO Clears >2 hours, Solids >8 hours Anesthesia Plan Resuscitation Status: Full Code Anesthesia Technique: MAC Anesthesia Airway Planned: Natural Airway Monitors Used: Standard Monitors Preoperative Comments:: No MKO
[2025-04-07 08:12] VITALS: BMI 17.4
[2025-04-07] MEDS: Prednisolone 1%, Moxifloxacin 0.5%, Bromfenac 0.09% 5.6ML BTL 5.6 ML (09:02)
[2025-04-07] MEDS: Tetracaine 0.5% 4 ML BTL (09:04)
[2025-04-07] MEDS: Duovisc Viscoelastic System EACH 1 EACH (09:04)
[2025-04-07] MEDS: Lidocaine 1% Pres-Free 5 ML VIAL (09:05)
[2025-04-07] MEDS: Moxifloxacin-PF 1 MG/ML VIAL (09:05)
[2025-04-07] MEDS: Phenylephrine/Lidocaine (15/10) MG/ML 1 ML VIAL (09:06)
[2025-04-07] MEDS: Balanced Salt Soln.-PLUS 500 ML BAG OP (09:07)
[2025-04-07] MEDS: Povidone-Iodine Ophth 30 ML BTL (09:08)
--- NOTE | 2025-04-07 09:24 | W.PM.DSUDISC ---
Date of service: 04/07/25 Discharge Plan Disposition Patient Disposition: Home Discharge Details Attending Provider: Lance Cisse Primary Care Provider: Sue Simmons Home Meds and New Rx's Prescriptions: No Action cholecalciferol (vitamin D3) 25 mcg (1,000 unit) tablet 25 mcg PO DAILY mecobalamin (vitamin B12) 1,000 mcg tablet,chewable 1,000 mcg PO DAILY vitamin B complex Capsule 1 cap PO DAILY Discharge Instructions Stand Alone Forms: DSU Post-Op Cataract, Berta Souza (DSU) Discharge Orders Discharge Orders: Discharge Order (Routine); Ordered 04/07/25 Ordered By: Lance Cisse DS: Diagnosis Discharge Diagnosis (1) Nuclear age-related cataract, left eye: Status: Resolved
--- NOTE | 2025-04-07 09:24 | W.PM.OP ---
Operative Note Operative Note PRE-OP DIAGNOSIS: Nuclear cataract, left eye POST-OP DIAGNOSIS: same PROCEDURE: Cataract extraction using phacoemulsification with intraocular lens implant, left eye SURGEON: Lance Cisse ANESTHESIA TYPE: Local By Surgeon and MAC Refer to Anesthesia Record PATHOLOGY: none sent COMPLICATIONS: None Patient was transported to: same day Patient's condition: stable Implants: Yusef Clareon [id number] Indications: Progressive decreased vision due to cataract, left eye Procedure Description: CATARACT SURGERY OPERATIVE REPORT PREOPERATIVE DIAGNOSIS: Nuclear cataract, left eye POSTOPERATIVE DIAGNOSIS: Same OPERATION: Cataract extraction using phacoemulsification with posterior chamber intraocular lens implant, left eye. IOL: IOL Continuous Still Operator/Model: Yusef Clareon [id number] IOL Power: + 21.0 diopters IOL Serial Number: [id number] Optic Diameter: 6.0mm Haptic/Overall Diameter: 13.0mm PHACO INFO: Yusef Clandestine Developmenturion Vision System with OZil and Active Fluidics Cumulative Dispersed Energy (CDE): 8.24 seconds SURGEON: Lance Cisse MD, SREE ANESTHESIA: Monitored Anesthesia Care (MAC), with local sub-tenon's anesthetic infiltration COMPLICATIONS: None SPECIMENS: None INDICATIONS FOR PROCEDURE: The patient is a 79-year-old lady with history of diminished visual acuity in her left eye secondary to the development of nuclear cataract. 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 The option of cataract surgery was offered to the patient and she wished to proceed. Postoperative visual acuity will be limited by the presence of pre-existing maculopathy. See office notes for detailed information. PROCEDURE: The correct surgical eye was identified and marked as the left eye and the pupil was dilated in the preoperative area using mydriatics and cycloplegics. The dilated pupil size was 6.0 mm. The patient elected to proceed without oral sedation. The patient was brought to the operating room where cardiopulmonary monitoring was instituted and surgical time-out was performed, confirming the correct operative eye and IOL power. Topical anesthesia was administered and ophthalmic povidone-iodine 5% was instilled into the conjunctival fornices. The charlie-ocular area was prepped with Betadine 10% solution and draped in the usual sterile fashion for intraocular surgery, including an aperture drape. A Tegaderm transparent film dressing was cut in half and used to cover the lashes and lid margins. Care was taken to sequester the lashes and lid margins under the Tegaderm dressing. A lid speculum was placed between the lids of the operative eye and the Yusef LuxOR Revalia operating microscope was maneuvered into position. Emilee scissors were then used to make a conjunctival buttonhole approximately 6mm posterior to the limbus in the inferonasal quadrant. Blunt dissection was carried out to expose bare sclera, and a blunt-tipped sub-tenon?s anesthesia cannula was introduced and passed posteriorly along the globe where non-preserved plain lidocaine was injected into posterior sub-Tenon?s space. A sideport knife was used to make a paracentesis port. Intraocular phenylephrine/lidocaine was injected into the anterior chamber. The anterior chamber was then filled with viscoelastic. A keratome knife was used construct a two-plane clear corneal tunnel extending 2.0mm into clear cornea. A flap was raised on the anterior capsule and capsulorhexis forceps were used to complete a continuous curvilinear capsulorhexis of 5.5 mm. Balanced salt solution was then used to perform cortical cleaving hydrodissection and nuclear hydrodelineation until the lens could be freely rotated within the capsular bag. The lens nucleus was then disassembled and removed within the capsular bag and iris plane using phacoemulsification. Residual cortical material was removed using the irrigation/aspiration handpiece. The posterior capsule was carefully polished to remove as much residual lens epithelial cells as safely possible. The capsular bag was then inflated and the anterior chamber deepened with viscoelastic. The lens implant described above was inserted into the capsular bag using the Yusef Autonome Injector. A Kuglen hook was used to dial the IOL into position. Residual viscoelastic was then removed first from posterior to the IOL, then from the anterior chamber using the I/A handpiece. The lens implant was noted to center nicely within the capsular bag. The incisions were stromally hydrated, and the anterior chamber was reformed using BSS. Then 0.5cc of moxifloxacin 1.0mg/ml were injected into the capsular bag and anterior chamber. The incisions were checked with a Weck spear and found to be secure. Several drops of ophthalmic povidone-iodine 5% were then applied to the eye followed by two drops of combination steroid/NSAID/antibiotic solution. The drapes were removed and a clear plastic protective eye shield was placed over the eye. The patient was then returned to Same Day Surgery in stable condition. Date of Procedure: 04/07/25
[2025-04-07 09:25] VITALS: BP 142/87; PULSE 65; RESP 17; TEMP 36.4; O2SAT 98
--- NOTE | 2025-04-07 09:55 | W.ANESPOSTOP ---
Postoperative Evaluation Date, Time and Location Date Performed: 04/07/25 Time Performed: : Patient Location: Day Surgery Unit Vital Signs Most Recent Imported Vital Signs: Most Recent Vital Signs Temp Pulse Resp BP Pulse Ox 36.4 C L 65 17 142/87 H 98 04/07/25 09:25 04/07/25 09:25 04/07/25 09:25 04/07/25 09:25 04/07/25 09:25 Pain Score Most Recent Pain Score: Most Recent Pain Score Pain Level 0 04/07/25 09:25 Assessment Mental Status: Awake (Alert & Oriented to Patient Baseline) Airway and Respiratory Function: Patent airway with normal (patient baseline) respiratory exam Cardiovascular Function: Hemodynamically Stable Hydration Status: Adequately Hydrated Nausea & Vomiting: No Nausea or Vomiting Pain: Pt. Denies Any Pain Peripheral Nerve Block: Other (Local by Dr. Cisse)
== END 2025-04-07 09:50 | disposition home or self-care (01) ==
LOC: SUR 07:18
PROVIDERS: PCP Family Medicine; Visit Provider Ophthalmology
PROC: (CPT 66984; principal; 2025-04-07 09:00)
DX: H25.12 Age-related nuclear cataract, left eye (principal)
CPT/HCPCS: 66984; 00123; V2632; J2003